=== PATIENT | male | born 1965 | race Caucasian/White ===

== ENCOUNTER 2018-10-07 11:13 | Outpatient (CLI) | payer BC, SELFPAY ==
--- NOTE | 2018-10-07 11:15 | DI.RAD_ITS ---
SYMPTOMS/DIAGNOSIS: KNEE PAIN, M25.569 LEFT KNEE: Three views were obtained. No significant bony or soft tissue abnormality seen.
== END 2018-10-07 11:33 ==
PROVIDERS: PCP Family Medicine
DX: M25.562 Pain in left knee (principal)
CPT/HCPCS: 73562

== ENCOUNTER 2020-01-03 20:10 | Inpatient (IN) | payer BC, SELFPAY ==
[2020-01-03 20:25] VITALS: BP 151/96; PULSE 68; RESP 19; TEMP 36.4; O2SAT 98
--- NOTE | 2020-01-03 20:30 | DI.CT_ITS ---
EXAM: CT ABDOMEN PELVIS W CLINICAL HISTORY: Lower abdominal pain TECHNIQUE: Imaging Protocol: Axial computed tomography images with coronal and sagittal reformatted images were created and reviewed CONTRAST MATERIAL: Intravenous: Omnipaque 350 Contrast volume:100 mL Oral: Yes COMPARISON: CT RENAL COLIC WO CONTRAST from 03/20/2010 CT ABD PELVIS WITH CONTRAST from 08/27/2014 FINDINGS: ABDOMEN: Lung Bases: Normal where visualized. Liver: Normal density. No measurable mass. Portal, Superior Mesenteric, and Splenic Veins: Unremarkable. Gallbladder and Biliary Tract: No radiodense calculus or dilation. Pancreas: Normal density, no abnormal calcifications or inflammatory process. Spleen: Normal. Adrenals: No masses seen. Kidneys: Normal size, contour and axis. No radiodense stones or obstructive uropathy. No masses seen. Abdominal Aorta: Abdominal portion non-dilated. Mild atherosclerosis. Bowel: Mild thickening of the wall of loops of small bowel in the central abdomen. Mild dilatation o f the bowel proximally with normal caliber distally. There is a moderate amount of retained stool in the colon. Appendix is unremarkable. Peritoneal Cavity: No ascites, collection or mesenteric inflammatory response. Lymph Nodes: Within normal limits. Bones: Degenerative changes. Soft Tissues: Unremarkable. PELVIS: Bladder: Symmetric distention, no gross wall thickening. Reproductive Organs: Mildly enlarged prostate gland. Lymph Nodes: Within normal limits. Bones: Degenerative changes. IMPRESSION: Small-bowel enteritis with associated ileus or possible developing obstruction. RADIATION DOSE DELIVERED: 815.24mGy.cm Total DLP DATA REPOSITORY: All CT scans at this facility are submitted to the National Radiology Data Registry (NRDR) Dose Index Registry (DIR) with the [employer] (ACR). RADIATION OPTIMIZATION: All CT scans at this facility use at least one of these dose optimization te chniques: automated exposure control; mA and/or kV adjustment per patient size (includes targeted exa ms where dose is matched to clinical indication); or iterative reconstruction.
--- NOTE | 2020-01-03 20:39 | ED.GENADUL_ITS ---
Discharge Plan Disposition Patient Disposition: [facility] INPATIENT Condition: Stable Discharge Details Chief Complaint: Abd Prob Clinical Impression: Ileus, Abdominal pain Admit Date/Time: 01/03/20 23:02 Admit Provider: Angelica Corcoran Attending Provider: Angelica Corcoran Primary Care Provider: Judit Corey ED Provider: [facility] Course Hospital Course: Patient was admitted with abdominal pain and nausea vomiting. In the CAT scan it appears that he has some small bowel adhered up to his previous mesh repair at the umbilical hernia site. With pain meds and hydration/fluids, this has resolved. The patient has no pain today, he is passing gas, he is tolerating clear liquids. He will be discharged home. He will follow-up my is on Sunday we will obtain an MRI enterography to further evaluate this area. This has been happening off and on for several months. It is becoming more severe and painful. He is going to need surgery to correct this. Discharge Instructions Additional Instructions: -No lifting over 20 pounds x 24 hours -No driving x24 hours -Full liquid diet x24 hours. Then can advance to a soft diet. No beef, pork, bread, crackers or chips. No raw vegetables. Continue this diet until seen in clinic on Sunday with Dr. Corcoran. -[facility] in clinic on Sunday. You will need to call on Sunday to make an appointment with Dr. Corcoran. This number is [phone]. Forms: Nursing Discharge Form Referrals: Angelica Corcoran, [OSTEOPATHIC DOCTOR] - (Calll the office on Sunday morning to schedule an appointment to be seen on Sunday) Discharge Data Discharge Date/Time-TO BE ENTERED AT DEPARTURE: 01/04/20 00:09 Medical Decision Making 54-year-old male presents to the ER with chief complaint of lower abdominal pain. Began at approximately 1700 after dinner. He reports eating at home, chicken and small candies also taking 2 peppermint tablets with some chips. He denies any nausea vomiting diarrhea. Last bowel movement was this morning and was normal. Denies any hematochezia or hematemesis. Only past abdominal surgical history is a umbilical hernia repair with mesh. He reports pain that is stabbing which is intermittent comes and goes no radiation to the back. He reported to the nurse some strong smelling urine. Denies any dysuria or pr oblems urinating to me. CT result shows possible ileus versus early obstruction. Discussed results with patient who also verbalized understanding. Discussed this with Dr. Corcoran with general surgery for admission and observation. She agrees to admit patient. Patient states that abdominal pain is decreased and is achy and tender. He has declined the Zofran and morphine at this time. He did receive Pepcid and 1 L normal saline here in department. Patient was hemodynamically stable throughout stay and at the time of this dictation. This text was generated using [employer] dictation system, please disregard any oddities of phrase or misspellings. HPI General Mode of arrival: ambulatory . Date/Time Provider Initiated Documentation: 01/03/20 20:30 . Limitations to Documentation: no limitations . Information obtained by: patient . HPI Narrative: 54-year-old male presents to the ER with chief complaint of lower abdominal pain. Began at approximately 1700 after dinner. He reports eating at home, chicken and small candies also taking 2 peppermint tablets with some chips. He denies any nausea vomiting diarrhea. Last bowel movement was this morning and was normal. Denies any hematochezia or hematemesis. Only past abdominal surgical history is a umbilical hernia repair with mesh. He reports pain that is stabbing which is intermittent comes and goes no radiation to the back. He reported to the nurse some strong smelling urine. Denies any dysuria or problems urinating to me. Related Data Home Medications Medication Instructions Recorded Confirmed acetaminophen [Acetaminophen Extra 1,000 mg PO PRN tab-cap 07/03/14 09/04/19 Strength] ibuprofen 600 mg tablet 600 mg PO TID tab 11/26/18 09/04/19 Allergies Allergy/AdvReac Type Severity Reaction Status Date / Time No Known Allergies Allergy Verified 09/04/19 10:32 General Stated Complaint: Abd Prob MELISSA: 3 Review of Systems Narrative: Constitutional: Negative for weight loss, alert and oriented, well groomed, normal body habitus, appears comfortable. HEENT: Denies trauma, headaches, blurry vision, nasal discharge, sore throat, tr ouble swallowing. Chest: Denies chest pain, palpitations, irregular rhythm, hypertension. Respiratory: Denies Shortness of breath, cough, hemoptysis. GI: Positive lower bilateral abdominal pain which began suddenly at 5 PM after eating. Denies nausea vomiting diarrhea. : Denies dysuria, hematuria, flank pain, rectal bleeding. Neuro: Denies dizziness, blurry vision, weakness, syncope, headache or facial numbness. Hematologic: Denies easy bruising, intolerance to heat or cold, hair loss. [facility] Medical History (Updated 01/04/20 @ 13:03 by Angelica Corcoran DO) Left knee pain (Acute) ? mensical degenerative tear Partial small bowel obstruction (Acute) Surgical History (Updated 01/04/20 @ 13:03 by Angelica Corcoran DO) History of umbilical hernia repair (Acute) Done laparoscopically with [place] [address] Roy Family History Mother , 63 Depression Lung cancer Father , 69 Essential hypertension Cerebral ischemia Neoplasm ? PANCREATIC Pancreatic cancer ??? Sister No problems noted. Maternal Grandmother , 101 No problems noted. Son No problems noted. Daughter No problems noted. Paternal Family history Heart disease Myocardial infarction Maternal Grandfather No problems noted. Maternal Grandfather No problems noted. Paternal Grandmother No problems noted. Social History Smoking/Tobacco Use Status: Current every day Tobacco Type: smokeless tobacco Smokeless tobacco user: chewing tobacco Quit status: has quit before Second Hand Exposure: Yes Alcohol Intake: current Alcohol Intake frequency: holidays/special occasions only Alcohol type: hard liquor Drug use: Never Substance use type: does not use Household members: spouse and children Housing: house Do you need help understanding health information?: Never Pets and animals: Yes Pets and animals: cat(s) and dog(s) Sexually active: Yes Do you think of yourself as: straight/heterosexual Current gender identity: male What is your relationship status?: How often do you talk on the phone with friends or family?: three or more times per week How often do you get together with friends or relatives?: once per week How often do you attend mu-ism or cheondoism services?: decline to answer Do you belong to any clubs or organized social groups?: no Panel score (0-1 are the most socially isolated patients): 2 What type of physical activity do you participate in: decline to answer Duration: decline to answer Frequency: decline to answer Elisa/Pentecostal: No preference Special elisa needs: No Seatbelt use: always Helmet use: Yes Helmet use: always Drive intox or ride w/intox diesel truck driver: No Do you feel safe at home: Yes Do you feel safe in your relationship?: Yes Exam Narrative Exam Narrative: Constitutional: Alert and oriented x3. Appears stated age. Normal body habitus. Head: Normocephalic, no trauma. Eyes: Pupils PERRLA, Red reflex noted, EOM's intact. Eyelids symmetrical without lesions, discharge, or swelling. ENT: Bilateral TM's WNL, External ear normal to inspection, no mastoid TTP, swelling, or erythema, Nasal turbinates WNL, no nasal discharge. Normal dentition, Posterior pharynx WNL, no exudate. Chest: RRR, Normal S1, S2, distal pulses intact. Resp: Lungs clear to auscultation bilaterally, no wheezes, rales, or rhonchi Abdomen: Soft nondistended normoactive bowel sounds all 4 quadrants, tender to palpation right lower quadrant and left lower quadrant and periumbilical. No palpable mass. Musculoskeletal: Normal gait, 5/5 strength to all four extremities. Skin: No suspicious rashes or lesions. Capillary refill less than 2 sec. Neurologic: Cranial nerves II-XII intact. Alert and oriented x 3. DTR's intact. Hematologic/Lymphatic: No ecchymosis, no lymphadenopathy. Course Vital Signs Vital signs: Vital Signs Temperature 36.4 C L 01/03/20 20:25 Pulse 68 01/03/20 20:25 Respiratory Rate 19 01/03/20 20:25 Blood Pressure 151/96 H 01/03/20 20:25 Pulse Oximetry 98 01/03/20 20:25 Temperature 36.4 C L 01/03/20 20:25 Temperature Source Temporal Artery Scan 01/03/20 20:25 Pulse 68 01/03/20 20:25 Respiratory Rate 19 01/03/20 20:25 Respiratory Effort Non-Labored 01/03/20 20:28 Blood Pressure 151/96 H 01/03/20 20:25 Blood Pressure Position Sitting 01/03/20 20:25 Pulse Oximetry 98 01/03/20 20:25 Oxygen Delivery Method Room Air 01/03/20 20:25 Oxygen Flow Rate 0 01/03/20 20:25 Pain Level 2 01/03/20 20:28
[2020-01-03] MEDS: Omnipaque 350 MG/ML 50 ML BTL PO (20:45)
[2020-01-03] MEDS: Breeza Beverage 473 ML BTL PO ×2 (20:45→20:46)
[2020-01-03 21:01] LABS: Abs Immature Grans 0.06 10^3/uL (0.0-0.06); Absolute Basophil Count 0.06 10^3/uL (0.0-0.2); Absolute Lymphocyte Count 2.21 10^3/uL (1.2-3.4); Absolute Monocyte Count 0.51 10^3/uL (0.1-0.8); Absolute Neutrophil Count 7.17 10^3/uL (1.2-6.7); Basophils % 0.6; Eosinophils % 2.9; HCT 49.9 % (40.0-50.0); HGB 16.5 g/dL (13.5-17.5); Immature Grans % 0.6; Lymphocytes % 21.4; MCH 29.4 pg (27.0-33.0); MCHC 33.1 % (32.0-36.0); MCV 88.9 fL (80-95); MPV 10.9 fL (8.0-11.0); Monocytes % 4.9; Neutrophils % 69.6; Nucleated RBC 0 %; Platelet Count 184 10^3/uL (130-400); RBC 5.61 10^6/uL (4.36-5.78); RDW 12.1 % (11.8-14.1); RDW-SD 39.6 fL; WBC 10.31 10^3/uL (4.4-10.8)
[2020-01-03 21:23] LABS: ALT 27 U/L (16-63); AST 15 U/L (15-37); Albumin 4.1 g/dL (3.4-5.0); Alkaline Phosphatase 63 U/L (46-116); Anion Gap 10.9 mmol/L (3-11); BUN 14 mg/dL (7-18); Bilirubin, Total 0.5 mg/dL (0.2-1.0); CO2 27.1 mmol/L (21.0-32.0); CREATININE 1.67 mg/dL (0.70-1.30); Calcium 8.9 mg/dL (8.5-10.1); Chloride 105 mmol/L (98-107); Estimated GFR 43.25 (mL/min/1.73m2); Glucose 109 mg/dL (74-106); Lipase 137 U/L (73-393); Potassium 3.7 mmol/L (3.5-5.1); Sodium 143 mmol/L (136-145); Total Protein 6.9 g/dL (6.4-8.2)
[2020-01-03] MEDS: Omnipaque 350 MG/ML 100 ML BTL IJ (21:25)
[2020-01-03] MEDS: Normal Saline Flush 10 ML SYR IVP (21:26)
[2020-01-03] MEDS: Normal Saline - Diluent 50 ML VIAL IV (21:26)
[2020-01-03] MEDS: FAMOTIDINE 20 MG/50 ML BAG 100 MG IVPB (21:29)
[2020-01-03] MEDS: Normal Saline 1,000 ML 1000 ML IV (21:29)
--- NOTE | 2020-01-03 21:40 | DI.VRAD_ITS ---
PROCEDURE INFORMATION: Exam: CT Abdomen And Pelvis With Contrast Exam date and time: 01/03/2020 20:40 Age: 54 years old Clinical indication: Other: Lower abdominal pain; Prior surgery; Surgery date: 6+ months; Surgery type: Hernia mesh TECHNIQUE: Imaging protocol: Computed tomography of the abdomen and pelvis with intravenous contrast. Contrast material: OMNIPAQUE 350; Contrast volume: 100 ml; Contrast route: INTRAVENOUS (IV); COMPARISON: CT ABD PELVIS WITH CONTRAST 08/27/2014 09:08 FINDINGS: Liver: Fatty liver with no mass lesions. Gallbladder and bile ducts: No calcified stones. No ductal dilation. Pancreas: No ductal dilation. No masses. Spleen: No splenomegaly or focal lesions. Adrenals: No mass. Kidneys and ureters: No hydronephrosis. No renal masses. Stomach and bowel: Minor distal colonic diverticula. No diverticulitis. Submucosal fat deposition in the colon, likely habitus related. Focal wall thickening in mid abdominal small bowel, moderate in severity up to 12 mm along a short length segment of probably distal jejunum or proximal ileum. Enteric contrast reaches this level. A very small amount of enteric contrast progresses distally where the small bowel demonstrates mild wall thickening. The distal most small bowel contains fluid and is not pathologically dilated. No ischemia or pneumatosis. Appendix: No evidence of appendicitis. Intraperitoneal space: No free air. No significant fluid collection. Vasculature: No abdominal aortic aneurysm. Lymph nodes: No significantly enlarged lymph nodes. Bladder: Unremarkable as visualized. Reproductive: Moderate enlargement of the prostate gland and of the seminal vesicles. Bones/joints: Degenerative changes in the spine. No acute fracture or subluxation. Soft tissues: Ventral abdominal hernia mesh appears satisfactory. IMPRESSION: 1. Focal mid small bowel enteritis with associated focal ileus and or developing obstruction. 2. Additional findings as described. Dictated and Authenticated by: Zelda Betancourt MD. Ordering:DENISE Paredes MD
[2020-01-03 22:01] LABS: Bilirubin Negative (Negative); Blood Negative (Negative); Glucose Negative (Negative); Ketones Negative (Negative); Leukocyte Esterase Trace (Negative); Nitrite Negative (Negative); Urobilinogen 0.2 EU/dL (Up TO 0.2); pH 6.5 (5-8)
[2020-01-03 22:07] LABS: Clarity Clear (Clear)
[2020-01-03 22:15] LABS: Bacteria Negative HPF (Negative); C & S Indicated? Yes; Casts Negative LPF (Negative); Crystals Few Calcium Oxalate HPF (Negative); Epithelial Cells Negative HPF (Negative); Mucus Negative (Negative); Other Cells Negative (Negative); RBC Negative HPF (0-2); WBC 0-2 HPF (0-5)
--- NOTE | 2020-01-03 23:45 | HPE_ITS ---
Date of service: 01/03/20 Time of Service: 23:45 Assessment and Plan Assessment and plan (1) Abdominal pain: Status: Acute Assessment and plan: I did review his CT today. The oral contrast did not go all the way through the intestine. And it almost looks like she has an intestine adhesed up to his previous mesh repair and he is getting intermittent small bowel obstructions. This is been happening off and on for some time. And again today he has no pain and he is tolerating clear liquids and passing gas. Does not think this is any viral or inflammatory/autoimmune process. I think it would be worthwhile to get an MRI of this. On his flat plate today there is no signs of any small bowel obstructions. He is passing gas he has tolerated glass of juice and he wants to go home. I think this is reasonable and we will keep him on a liquid/soft diet I will see him in clinic on Sunday and we will get an MRI enterography arranged. He has severe anxiety and has to have an open MRI. (2) Ileus: Status: Acute History of Present Illness Consults Consult date: 01/03/20 Narrative: Patient came into the ER last night with crampy abdominal pain. He says it was generalized is not localized. The patient says today that he had no nausea vomiting. He gets this often. It comes about once a month. He is thinks it is related to drinking soda. He says he was having no nausea and vomiting. He says it feels like he just cannot pass gas. He has had no preceding or proceeding diarrhea. He has had no fever or chills. He has had no rectal bleeding. He has no rashes. He has not been in contact with anyone who is ill. He does not think he is food poisoning. It started about 3 to 4 hours after he had a carbonated beverage. And he is planning to get on that. Today he feels good he is hungry and wants to eat. He is passing gas. He has no pain. His only surgery is an umbilical hernia repair he had in in 2012 as a laparoscopic umbilical hernia repair. He had no problems with anesthesia. Again he has no pain today. And he is passing gas. He has not had a bowel movement yet today. CT ABD PELVIS WITH CONTRAST 08/27/2014 09:08 FINDINGS: Liver: Fatty liver with no mass lesions. Gallbladder and bile ducts: No calcified stones. No ductal dilation. Pancreas: No ductal dilation. No masses. Spleen: No splenomegaly or focal lesions. Adrenals: No mass. Kidneys and ureters: No hydronephrosis. No renal masses. Stomach and bowel: Minor distal colonic diverticula. No diverticulitis. Submucosal fat deposition in the colon, likely habitus related. Focal wall thickening in mid abdominal small bowel, moderate in severity up to 12 mm along a short length segment of probably distal jejunum or proximal ileum. Enteric contrast reaches this level. A very small amount of enteric contrast progresses distally where the small bowel demonstrates mild wall thickening. The distal most small bowel contains fluid and is not pathologically dilated. No ischemia or pneumatosis. Appendix: No evidence of appendicitis. Intraperitoneal space: No free air. No significant fluid collection. Vasculature: No abdominal aortic aneurysm. Lymph nodes: No significantly enlarged lymph nodes. Bladder: Unremarkable as visualized. Reproductive: Moderate enlargement of the prostate gland and of the seminal vesicles. Bones/joints: Degenerative changes in the spine. No acute fracture or subluxation. Soft tissues: Ventral abdominal hernia mesh appears satisfactory. Review of Systems All systems reviewed & are unremarkable except as noted in HPI and below [facility] Medical History (Updated 01/09/20 @ 13:36 by Angelica Corcoran DO) Intra-abdominal adhesions (Acute) Left knee pain (Acute) ? mensical degenerative tear Partial small bowel obstruction (Acute) Surgical History (Updated 01/04/20 @ 13:03 by Angelica Corcoran DO) History of umbilical hernia repair (Acute) Done laparoscopically with mesh [place] [address] Roy Family History Mother , 63 Depression Lung cancer Father , 69 Essential hypertension Cerebral ischemia Neoplasm ? PANCREATIC Pancreatic cancer ??? Sister No problems noted. Maternal Grandmother , 101 No problems noted. Son No problems noted. Daughter No problems noted. Paternal Family history Heart disease Myocardial infarction Maternal Grandfather No problems noted. Maternal Grandfather No problems noted. Paternal Grandmother No problems noted. Social History Smoking/Tobacco Use Status: Current every day Tobacco Type: smokeless tobacco Smokeless tobacco user: chewing tobacco Quit status: has quit before Second Hand Exposure: Yes Alcohol Intake: current Alcohol Intake frequency: holidays/special occasions only Alcohol type: hard liquor Drug use: Never Substance use type: does not use Household members: spouse and children Housing: house Do you need help understanding health information?: Never Pets and animals: Yes Pets and animals: cat(s) and dog(s) Sexually active: Yes Do you think of yourself as: straight/heterosexual Current gender identity: male What is your relationship status?: How often do you talk on the phone with friends or family?: three or more times per week How often do you get together with friends or relatives?: once per week How often do you attend mormon or restorationist services?: decline to answer Do you belong to any clubs or organized social groups?: no Panel score (0-1 are the most socially isolated patients): 2 What type of physical activity do you participate in: decline to answer Duration: decline to answer Frequency: decline to answer Elisa/Taoist: No preference Special elisa needs: No Seatbelt use: always Helmet use: Yes Helmet use: always Drive intox or ride w/intox armor reconnaissance vehicle driver: No Do you feel safe at home: Yes Do you feel safe in your relationship?: Yes Meds Home Medications and Allergies Home Medications Medication Instructions Recorded Confirmed Type acetaminophen [Acetaminophen Extra 1,000 mg PO PRN tab-cap 07/03/14 01/07/20 History Strength] ibuprofen 600 mg tablet 600 mg PO TID tab 11/26/18 01/07/20 History bisacodyl 5 mg tablet,delayed 5 mg PO ONCE #4 tab 01/09/20 01/09/20 Rx release polyethylene glycol 3350 17 238 g PO ONCE #238 gm 01/09/20 01/09/20 Rx gram/dose oral powder Allergies Allergy/AdvReac Type Severity Reaction Status Date / Time No Known Allergies Allergy Verified 01/07/20 09:34 Exam Const General: cooperative, healthy appearing, comfortable, no acute distress, well developed and well groomed Nutritional Appearance: average body habitus and well nourished Orientation: alert, awake and oriented x3 HENMT Head: normal to inspection, normocephalic and atraumatic Ears: hearing grossly normal bilaterally and external ears normal General nose exam: external nose normal Face and sinus: normal facial exam and sinuses nontender Mouth: oral mucosae normal, lip normal, tongue normal and moist mucous membranes Teeth and gingiva: dentition normal Eyes General: appearance normal, both eyes and all related structures Conjunctivae: conjunctivae normal Sclera: sclerae normal Pupils: PERRL Neck Neck: normal visual inspection and full ROM Chest Chest: normal inspection of the chest Resp Effort & Inspection: normal respiratory effort, able to speak in complete sentences, no cough, no nasal flaring, not tachypneic and no use of accessory muscles Auscultation: clear to auscultation bilaterally, no rales, no rhonchi and no wheezes Cardio Jugular venous pressure: no JVD Rate: regular rate Rhythm: regular rhythm GI Inspection: normal to inspection, no edema, non-distended and incision Palpation: soft, no masses, nontender and No ascites Auscultation: normal bowel sounds Other: Postsurgical changes noted. When he was having pain it was in the area of the previous hernia repair. There is no distention today. He has minimal tenderness today. He has good bowel sounds today. Skin General skin exam: no rashes or lesions noted Trauma: no lacerations or abrasions Neuro General: patient alert, patient oriented x3, oriented, gait normal, moves all extremities, no focal motor deficits and CN's II-XI intact bilaterally Cognition: normal cognition Speech: speech normal Gait: normal gait Motor: muscle tone normal throughout Extrem General: normal to inspection, full ROM and no clubbing, cyanosis or edema Psych Appearance: grossly normal and well kempt Mental Status: mental status grossly normal Speech and Movement: speech and movement normal Affect: normal affect Results Labs Result diagrams: 01/03/20 20:42 01/04/20 07:15 Labs: Laboratory Results - last 24 hr 01/03/20 01/03/20 01/03/20 20:42 20:42 21:37 WBC 10.31 RBC 5.61 Hgb 16.5 Hct 49.9 MCV 88.9 MCH 29.4 MCHC 33.1 RDW 12.1 Plt Count 184 MPV 10.9 Immature Gran % 0.6 Neutrophils % 69.6 Lymphocytes % 21.4 Monocytes % 4.9 Eosinophils % 2.9 Basophils % 0.6 Nucleated RBC % 0 Absolute Neutrophils 7.17 H Absolute Lymphocytes 2.21 Absolute Monocytes 0.51 Absolute Eosinophils 0.30 Absolute Basophils 0.06 Sodium 143 Potassium 3.7 Chloride 105 Carbon Dioxide 27.1 Anion Gap 10.9 BUN 14 Creatinine 1.67 H Estimated GFR/1.73 m2 43.25 Glucose 109 H Calcium 8.9 Total Bilirubin 0.5 AST 15 ALT 27 Alkaline Phosphatase 63 Total Protein 6.9 Albumin 4.1 Lipase 137 Urine Color Yellow Urine Clarity Clear Urine pH 6.5 Ur Specific Kosse 1.010 Urine Protein Negative Urine Ketones Negative Urine Blood Negative Urine Nitrite Negative Urine Bilirubin Negative Urine Urobilinogen 0.2 Ur Leukocyte Esterase Trace H Urine RBC Negative Urine WBC 0-2 Ur Epithelial Cells Negative Urine Crystals Few calcium oxalate Urine Bacteria Negative Urine Casts Negative Urine Mucus Negative Urine Other Negative Ur Culture Indicated? Yes Urine Glucose Negative Last Vital Signs Temp 36.4 C L 01/03/20 20:25 Pulse 68 01/03/20 20:25 Resp 19 01/03/20 20:25 BP 151/96 H 01/03/20 20:25 Pulse Ox 98 01/03/20 20:25 COVID-19 Screening Have you,or household,traveled outside [place] in last 14 days?: No Had IN PERSON contact w/suspected or confirmed C-19 person: No
[2020-01-04 00:28] VITALS: BP 141/92; PULSE 58; RESP 16; TEMP 35.8; O2SAT 99
[2020-01-04] MEDS: Normal Saline 1,000 ML 125 ML IV (00:50)
[2020-01-04 01:31] LABS: C-Reactive Protein 0.16 mg/dL (0.0-0.3)
[2020-01-04 07:40] VITALS: BP 124/89; PULSE 53; RESP 18; TEMP 37.3; O2SAT 98
[2020-01-04 08:19] LABS: Anion Gap 6.8 mmol/L (3-11); BUN 10 mg/dL (7-18); C-Reactive Protein 0.14 mg/dL (0.0-0.3); CO2 28.2 mmol/L (21.0-32.0); Calcium 8.7 mg/dL (8.5-10.1); Chloride 108 mmol/L (98-107); Estimated GFR 48.95 (mL/min/1.73m2); Glucose 93 mg/dL (74-106); Potassium 4.7 mmol/L (3.5-5.1); Sodium 143 mmol/L (136-145)
--- NOTE | 2020-01-04 08:45 | PDOC.CMIN ---
- If Service Date Differs Date of service: 01/04/20 Time of Service: 08:45 Care Management Initial Assess REASON FOR HOSPITALIZATION:: Ileus, abdominal pain. PAST MEDICAL HISTORY/PAST SURGICAL HISTORY:: Medical/Surgical History: Left knee pain - ? mensical degenerative tear and. Repair of inguinal hernia with mesh implant. PREVIOUS FUNCTIONAL STATUS/SOCIAL/FAMILY SUPPORTS:: Aung lives in [place] with his Yaritza and 2 children. He works full-time in maintenance at [employer] and spends his free time golfing, chopping wood, and doing yardwork. Aung names his , in-laws and several friends as supports, though admits he is very independent and rarely turns to others for help. Aung drives and is independent at baseline. CURRENT FUNCTIONAL STATUS:: Aung is lying in bed watching television when CM comes to meet with him. He is pleasant but appropriately expresses frustration with not having seen a doctor yet today. He states he is feeling better, is hungry and has not had anything to eat since yesterday. CM explains to him that Dr. Corcoran has several patients to see today and that she will be by to see him as soon as she is available. Dr. Corcoran is contacted by nursing staff and she stops by Aung's room to answer his questions. CM will continue to follow. ADVANCE DIRECTIVES:: None on file. Has patient been provided with info about the portal/API?: Yes Did the patient sign up for the portal?: No (Not interested.) CODE STATUS:: Full Code INSURANCE COVERAGE / FINANCIAL ISSUES:: BS CURRENT HOME/COMMUNITY SERVICES/EQUIPMENT:: Denies home/community services or equipment. PRIMARY CARE PHYSICIAN:: Judit Corey NP POTENTIAL DISCHARGE NEEDS:: Follow up appointments with PCP and surgeon. PATIENT/FAMILY EDUCATION NEEDS:: Discharge instructions, limitations and follow up plan of care, including Ask Me Three and self management. ANTICIPATED BARRIERS TO DISCHARGE:: None. TRANSPORTATION:: Via private vehicle with family. PLAN:: Aung will be discharged home when medically cleared by provider. His will drive him home via private vehicle when ready. He will follow up with his PCP and discharge plan of care as directed. CM will continue to follow.
--- NOTE | 2020-01-04 08:47 | DI.RAD_ITS ---
EXAM: 2D digital imaging was performed. CLINICAL HISTORY: Possible SBO. COMPARISON: No exams were available for comparison TECHNIQUE: Supine and upright abdomen and PA chest views were performed. FINDINGS: BOWEL GAS PATTERN: Nondistended. The oral contrast is seen throughout the colon. No evidence of obs truction. No free air. CALCIFICATIONS: No radiopaque calcifications. OSSEOUS STRUCTURES: Normal for age. OTHER FINDINGS: Residual IV contrast is seen in the urinary bladder. LUNGS Clear. No pleural abnormality seen. HEART: Normal. MEDIASTINUM: Normal. OTHER FINDINGS: None. IMPRESSION: 1. Nonobstructive bowel gas pattern. 2. No acute pulmonary process. 3. No free air. DATA REPOSITORY: RADIATION DOSE DELIVERED:
--- NOTE | 2020-01-04 08:56 | DI.VRAD_ITS ---
PROCEDURE INFORMATION: Exam: XR Complete Acute Abdomen Series Exam date and time: 01/04/2020 8:47 AM Age: 54 years old Clinical indication: Other: [place] sbo TECHNIQUE: Imaging protocol: XR complete acute abdomen series, including 2 or more views of the abdomen and a single view chest. COMPARISON: CT ABDOMEN PELVIS W 01/03/2020 9:18 PM FINDINGS: Lungs: Hyperinflation, without acute airspace disease. Pleural space: No pleural effusion. Heart/Mediastinum: Normal configuration of the heart. Gastrointestinal tract: Enteric contrast throughout the length of the colon. Scattered air-fluid levels. Organs: Contrast in the bladder. Vasculature: Vascular calcifications. Bones/joints: Scoliosis and degenerative change. IMPRESSION: 1. Hyperinflation, without acute airspace or pleural disease. 2. Enteric contrast throughout the length of the colon. Dictated and Authenticated by: Abel Smith MD. Ordering:HEATHER Dominguez MD
[2020-01-04] MEDS: Famotidine 20 MG TAB PO (11:14)
--- NOTE | 2020-01-04 13:01 | DSE_ITS ---
Date of service: 01/04/20 Time of Service: 13:01 DS: Diagnosis Discharge Diagnosis (1) Abdominal pain: Status: Acute (2) Ileus: Status: Acute (3) Partial small bowel obstruction: Status: Acute (4) History of umbilical hernia repair: Status: Acute Discharge Plan Disposition Patient Disposition: HOME Condition: Stable Discharge Details Chief Complaint: Abd Prob Clinical Impression: Ileus, Abdominal pain Reason For Visit: Partial small bowel obstruction secondary to adhes Admit Date/Time: 01/03/20 23:02 Admit Provider: Angelica Corcoran Attending Provider: Angelica Corcoran Primary Care Provider: Judit Corey ED Provider: [facility] Course Hospital Course: Patient was admitted with abdominal pain and nausea vomiting. In the CAT scan it appears that he has some small bowel adhered up to his previous mesh repair at the umbilical hernia site. With pain meds and hydration/fluids, this has resolved. The patient has no pain today, he is passing gas, he is tolerating clear liquids. He will be discharged home. He will follow-up my is on Sunday we will obtain an MRI enterography to further evaluate this area. This has been happening off and on for several months. It is becoming more severe and painful. He is going to need surgery to correct this. Home Meds and New Rx's Prescriptions: No Action ibuprofen 600 mg tablet 600 mg PO TID RF: 0 acetaminophen [Acetaminophen Extra Strength] 500 MG tablet 1,000 mg PO PRN RF: 0 Discharge Instructions Additional Instructions: -No lifting over 20 pounds x 24 hours -No driving x24 hours -Full liquid diet x24 hours. Then can advance to a soft diet. No beef, pork, bread, crackers or chips. No raw vegetables. Continue this diet until seen in clinic on Sunday with Dr. Corcoran. -[facility] in clinic on Sunday. You will need to call on Sunday to make an appointment with Dr. Corcoran. This number is [phone]. Activity:: See above Equipment/Supplies:: No Equipment Needed Diet:: Full liquid Discharge Orders Discharge Orders: Discharge Order (Routine); Ordered 01/03/20 Ordered By: Angelica Corcoran DS: Summary Status at Discharge Functional status at discharge: independent ambulation Overall status at discharge: patient is back to baseline Mental Status: mental status grossly normal Speech and Movement: speech and movement normal Mood: congruent mood Affect: normal affect Exam Psych Mental Status: mental status grossly normal Speech and Movement: speech and movement normal Mood: congruent mood Affect: normal affect DS: Data Vitals/I&O Vitals and I&O: Vital Signs Temperature 37.3 C 01/04/20 07:40 Temperature Source Tympanic 01/04/20 07:40 Pulse 53 L 01/04/20 07:40 Pulse Rhythm Regular 01/04/20 07:50 Respiratory Rate 18 01/04/20 07:40 Respiratory Effort Non-Labored 01/04/20 07:50 Respiratory Depth Normal 01/04/20 07:50 Respiratory Pattern Normal 01/04/20 07:50 Blood Pressure 124/89 01/04/20 07:40 Blood Pressure Position Sitting 01/03/20 20:25 Pulse Oximetry 98 01/04/20 07:40 Oxygen Delivery Method Room Air 01/04/20 07:40 Oxygen Flow Rate 0 01/04/20 07:40 Pain Level 0 01/04/20 07:49 Intake & Output 01/03/20 01/04/20 01/04/20 23:59 11:59 23:59 Intake Total 1060 / 1060 650 / 650 Output Total 650 / 650 Balance 1060 / 1060 0 / 0 Weight 83.915 kg 86 kg Intake: IV 1060 / 1060 Oral 650 / 650 Output: Urine 650 / 650 Other: Urine Color Yellow Urine Appearance Clear Urine Odor Normal Voiding Methods Urinal Data Completed and Pending Labs on day of discharge: Labs from last 24 hours 01/04/20 01/04/20 01/04/20 07:15 02:38 00:06 WBC RBC Hgb Hct MCV MCH MCHC RDW Plt Count MPV Immature Gran % Neutrophils % Lymphocytes % Monocytes % Eosinophils % Basophils % Nucleated RBC % Absolute Neutrophils Absolute Lymphocytes Absolute Monocytes Absolute Eosinophils Absolute Basophils Sodium 143 Potassium 4.7 D Chloride 108 H Carbon Dioxide 28.2 Anion Gap 6.8 BUN 10 Creatinine 1.50 H Estimated GFR/1.73 m2 48.95 Glucose 93 Calcium 8.7 Total Bilirubin AST ALT Alkaline Phosphatase C-Reactive Protein 0.14 Total Protein Albumin Lipase Urine Color Cancelled Urine Clarity Cancelled Urine pH Cancelled Ur Specific Bells Cancelled Urine Protein Cancelled Urine Ketones Cancelled Urine Blood Cancelled Urine Nitrite Cancelled Urine Bilirubin Cancelled Urine Urobilinogen Cancelled Ur Leukocyte Esterase Cancelled Urine RBC Urine WBC Ur Epithelial Cells Urine Crystals Urine Bacteria Urine Casts Urine Mucus Urine Other Ur Culture Indicated? Urine Glucose Cancelled COVID-19 PCR Pending Nasopharyn COVID-19 PCR Pending Ref Test Perform Site Pending 01/03/20 01/03/20 01/03/20 21:37 20:42 20:42 WBC 10.31 RBC 5.61 Hgb 16.5 Hct 49.9 MCV 88.9 MCH 29.4 MCHC 33.1 RDW 12.1 Plt Count 184 MPV 10.9 Immature Gran % 0.6 Neutrophils % 69.6 Lymphocytes % 21.4 Monocytes % 4.9 Eosinophils % 2.9 Basophils % 0.6 Nucleated RBC % 0 Absolute Neutrophils 7.17 H Absolute Lymphocytes 2.21 Absolute Monocytes 0.51 Absolute Eosinophils 0.30 Absolute Basophils 0.06 Sodium Potassium Chloride Carbon Dioxide Anion Gap BUN Creatinine Estimated GFR/1.73 m2 Glucose Calcium Total Bilirubin AST ALT Alkaline Phosphatase C-Reactive Protein 0.16 Total Protein Albumin Lipase Urine Color Yellow Urine Clarity Clear Urine pH 6.5 Ur Specific Bells 1.010 Urine Protein Negative Urine Ketones Negative Urine Blood Negative Urine Nitrite Negative Urine Bilirubin Negative Urine Urobilinogen 0.2 Ur Leukocyte Esterase Trace H Urine RBC Negative Urine WBC 0-2 Ur Epithelial Cells Negative Urine Crystals Few calcium oxalate Urine Bacteria Negative Urine Casts Negative Urine Mucus Negative Urine Other Negative Ur Culture Indicated? Yes Urine Glucose Negative COVID-19 PCR Nasopharyn COVID-19 PCR Ref Test Perform Site 01/03/20 20:42 WBC RBC Hgb Hct MCV MCH MCHC RDW Plt Count MPV Immature Gran % Neutrophils % Lymphocytes % Monocytes % Eosinophils % Basophils % Nucleated RBC % Absolute Neutrophils Absolute Lymphocytes Absolute Monocytes Absolute Eosinophils Absolute Basophils Sodium 143 Potassium 3.7 Chloride 105 Carbon Dioxide 27.1 Anion Gap 10.9 BUN 14 Creatinine 1.67 H Estimated GFR/1.73 m2 43.25 Glucose 109 H Calcium 8.9 Total Bilirubin 0.5 AST 15 ALT 27 Alkaline Phosphatase 63 C-Reactive Protein Total Protein 6.9 Albumin 4.1 Lipase 137 Urine Color Urine Clarity Urine pH Ur Specific Bells Urine Protein Urine Ketones Urine Blood Urine Nitrite Urine Bilirubin Urine Urobilinogen Ur Leukocyte Esterase Urine RBC Urine WBC Ur Epithelial Cells Urine Crystals Urine Bacteria Urine Casts Urine Mucus Urine Other Ur Culture Indicated? Urine Glucose COVID-19 PCR Nasopharyn COVID-19 PCR Ref Test Perform Site 01/03/20 21:37 Urine - Reflex from Urine Culture - Pending Preliminary micro results at discharge 01/03/20 21:37 Urine Culture - Pending Urine - Reflex from [facility] Medical History Left knee pain (Acute) ? mensical degenerative tear Surgical History Repair of inguinal hernia with mesh implant Family History Mother , 63 Depression Lung cancer Father , 69 Essential hypertension Cerebral ischemia Neoplasm ? PANCREATIC Pancreatic cancer ??? Sister No problems noted. Maternal Grandmother , 101 No problems noted. Son No problems noted. Daughter No problems noted. Paternal Family history Heart disease Myocardial infarction Maternal Grandfather No problems noted. Maternal Grandfather No problems noted. Paternal Grandmother No problems noted. Social History Smoking/Tobacco Use Status: Current every day Tobacco Type: smokeless tobacco Smokeless tobacco user: chewing tobacco Quit status: has quit before Second Hand Exposure: Yes Alcohol Intake: current Alcohol Intake frequency: holidays/special occasions only Alcohol type: hard liquor Drug use: Never Substance use type: does not use Household members: spouse and children Housing: house Do you need help understanding health information?: Never Pets and animals: Yes Pets and animals: cat(s) and dog(s) Sexually active: Yes Do you think of yourself as: straight/heterosexual Current gender identity: male What is your relationship status?: How often do you talk on the phone with friends or family?: three or more times per week How often do you get together with friends or relatives?: once per week How often do you attend buddhist or yazdanism services?: decline to answer Do you belong to any clubs or organized social groups?: no Panel score (0-1 are the most socially isolated patients): 2 What type of physical activity do you participate in: decline to answer Duration: decline to answer Frequency: decline to answer Elisa/Taoism: No preference Special elisa needs: No Seatbelt use: always Helmet use: Yes Helmet use: always Drive intox or ride w/intox drivers' cash clerk: No Do you feel safe at home: Yes Do you feel safe in your relationship?: Yes
--- NOTE | 2020-01-04 13:50 | PDOC.CMDIS ---
- If Service Date Differs Date of service: 01/04/20 Time of Service: 13:50 LACE Index Scoring Tool - Questions: Length of Stay (in days): 1 Acuity (Admit via E.D.?): Yes E.D. Visits: 1 - Answers: Total Score: 5 Risk of Readmission: Low Risk Care Management Discharge Reason for Hospitalization: Ileus, abdominal pain. Discharge Plan: Aung is being discharged home. His , Yaritza, is driving him home via private vehicle. He will follow up with his PCP, Dr. Corcoran, and discharge plan of care as prescribed. Patient/Family Education Needs: Nursing staff will review discharge instructions and follow up plan of care, including activity level, medication, and self management.
[2020-01-05 08:27] LABS: COVID-19 RT-PCR UVMMC Result Negative
== END 2020-01-04 15:17 | disposition home or self-care (01) | DRG 390 ==
LOC: ER 23:10 → MS 01-04 00:10
PROVIDERS: Admitting Provider Surgery; Emergency Provider Registered Nurse Emergency; Visit Provider Surgery
DX: K56.51 Intestinal adhesions [bands], with partial obstruction (principal); Z72.0 Tobacco use
CPT/HCPCS: 36415; 80048; 80053; 83690; 96361; 96365; 99222; 99238; 99285; U0003; 74019; 74177; 81003; 81015; 85025; 86140; 87086; 99284; J2270; J3490; Q9967

== ENCOUNTER 2020-01-15 11:47 | Day surgery (SDC) | payer BC, SELFPAY ==
[2020-01-15 11:50] VITALS: BP 133/89; PULSE 70; RESP 18; TEMP 36.3; O2SAT 96
[2020-01-15] MEDS: Lactated Ringers 1,000 ML 100 ML IV (12:25)
--- NOTE | 2020-01-15 13:55 | W.COLOREPORT ---
Date of service: 01/15/20 Time of Service: 13:55 Colonoscopy Report Date of procedure: 01/15/20 Pre-op diagnosis general: CRC screen Post-op diagnosis procedure note: same Procedure: CE Surgeon: Angelica Corcoran Anesthesia proc note operative: MAC Estimated blood loss (mL): 0 Pathology: none sent Complications: None Disposition: same day Indications: Prep: Miralax/Dulcolax Retraction Time: 10 Procedure Description: After informed consent was obtained the patient was taken to the procedure room and placed in a left decubitous position. Monitors were applied and a time out was done. The patients name, date of , procedure, allergies to medications and metal in their body was reviewed. The patient was then sedated. Once sedated and comfortable a rectal exam was done. External exam: external hemorrds & tags . Internal exam revealed a normal sphincter tone and no palpable masses. The scope was then introduced and retrofelexed. NO internal hemorrhoids were identified- hypertrophied pillae noted. The scope was then advanced to the cecum w/out difficulty. The TI and appendiceal orifice were identified. The prep was good. The scope was then slowly retracted over 10 minutes back into the rectum. Polyps were removed: none. No AVMs amounts or diverticula noted. The mucosa is pink and healthy. Patient tolerated procedure well without complication the scope was removed and the patient was woken up and taken back to Same day surgery in stable condition. The patient tolerated the procedure well and there were no immediate complications. Follow up: The patient should follow up in 10 years unless they develop changes in bowel habits or other new gastrointestinal complaints.
--- NOTE | 2020-01-15 14:00 | PDOC.DSDIS_ITS ---
Discharge Plan Disposition Patient Disposition: HOME Condition: Good Discharge Details Reason For Visit: colon scope Attending Provider: Angelica Corcoran Primary Care Provider: Judit Corey Home Meds and New Rx's Prescriptions: Continued ibuprofen 600 mg tablet 600 mg PO TID RF: 0 acetaminophen [Acetaminophen Extra Strength] 500 MG tablet 1,000 mg PO PRN RF: 0 Discontinued polyethylene glycol 3350 17 gram/dose powder 238 g PO ONCE Qty: 238 RF: 0 bisacodyl [Dulcolax (bisacodyl)] 5 mg tablet,delayed release (DR/EC) 5 mg PO ONCE Qty: 4 RF: 0 Discharge Instructions Additional Instructions: Findings:normal Follow up:F/u w/ Dr. Corcoran in 1 week after MRI completed. Please call if you develop: fevers >101.5 Nausea or Vomiting Abdominal pain that is not transient DAY SURGERY UNIT POST COLONOSCOPY INSTRUCTIONS 1. Because there will be medication in your system for the next 24 hours, you may feel a little sleepy. Your coordination will be affected. Therefore: a. Do not drive or operate dangerous equipment for 24 hours. b. Do not drink alcohol beverages for 24 hours (not even beer). c. Plan to go home and rest for the day. 2. Generally there are no restrictions on your activity after a day or so has gone by, but you may feel a bit fatigued for a few days. 3 After you arrive home you may have a light meal and return to a normal diet as you can tolerate it without feeling sick to your stomach. 4. After surgery, you may feel pain or discomfort. This should be only transient, but if it persists please contact your doctor. 5. If there are any questions regarding the findings of your procedure, please feel free to contact your doctor. 6. If you are unable to contact your doctor with a problem, contact the hospital at [phone]. 7. Continue all your regular medications unless directed otherwise. I understand the above instructions and have no questions. Signature of Patient or Responsible Adult Escort Date/Time Name of Responsible Adult Escort Signature of Nurse Date/Time High Fiber Diet What is Dietary Fiber? All fiber comes from plants, bushes, socrates or trees. Of course, the ones that we eat provide us with fruits, vegetables and grains. There are many different types of fiber but the three that are most important to the health of the body are: Insoluble Fiber This fiber does not dissolve in water, nor is it fermented by the bacteria residing in the colon. Rather, it retains water and in so doing, helps to promote a larger, bulkier and more regular bowel activity. This, in turn, may be important in preventing disorder such as diverticulosis and hemorrhoids, and in sweeping out certain toxins and cancer causing carcinogens. Sources of insoluble fiber are: ? whole grain wheat and other whole grains ? corn bran, including popcorn, unflavored and unsweetened ? nuts and seeds ? potatoes and the skins from most fruits from trees such as apples, bananas and avocados ? many green vegetables such as green beans, zucchini, celery and cauliflower ? some fruit plants such as tomatoes and kiwi Soluble Fiber These fibers are fermented or used by the colon bacteria as a food source or nourishment. When these good bacteria grow and thrive, many health benefits occur in both the colon and the body. Soluble fiber is present in some degree in most edible plant foods, but the ones with the most soluble fiber include: ? legumes such as peas and most beans, including soybeans ? oats, rye and barley ? many fruits such as berries, plums, apples bananas and pears ? certain vegetables such as broccoli and carrots ? most root vegetables ? psyllium husk supplement products Prebiotic Soluble Fiber These are relatively newly discovered soluble plant fibers. The technical name for this fiber is inulin or fructan. When these soluble fibers are fermented by the good colon bacteria, some further significant health benefits have been shown to occur by research in many medical centers. These soluble prebiotic fibers occur in significant amounts in: ? asparagus ? yams ? onions ? garlic ? bananas ? leeks ? agave ? chicory and other root vegetables such as [place] artichokes ? wheat, rye and barley (smaller amounts) Benefits of a High Fiber Diet The health benefits of a high fiber diet, consumed on a regular basis and reaching recommended amounts (below), are now fairly well-defined. There are some additional benefits in the early research stage with the prebiotic soluble fibers. What is now known regarding a high fiber diet include: Bowel Regularity A high fiber diet promotes regularity with a softer, bulkier and regular stool pattern. This decreases the chance of hemorrhoids, diverticulosis and perhaps colon cancer. Cholesterol and Reduced Triglycerides The soluble fibers are the ones that will reduce cholesterol levels when used on a regular basis. Psyllium husk and prebiotic soluble fiber will also reduce cholesterol. They may also reduce the incidence of coronary heart disease. Oats, flax seeds and legumes or beans are the recommended fibers. Colon Polyps and Cancer It is still not certain if a high fiber diet helps prevent colon cancer. Considerable research suggests that this may occur. Certainly it makes sense to increase regularity and so speed the movement of cancer causing carcinogens through the bowel. In addition, reducing a heavy meat diet reduces the bile flow from the liver in a favorable way. This, too, reduces the amount of carcinogens that reach and are manufactured in the colon. Finally, a high fiber diet, including prebiotic soluble fiber, increases the integrity and health of the wall of the colon. The risk of cancer may be reduced. Colon Wall Integrity A high fiber diet changes the bacterial makeup of the colon toward a more favorable balance. For instance, it is known that those people with obesity, diabetes type 2 and inflammatory bowel disease have a predominance of bad bacteria in the colon. This, in turn, may render the bowel wall weak and allow bacteria and, indeed, even toxins to seep through. A high fiber diet with a modest reduction in animal and meat products may return the bacterial makeup to a more positive balance. This, in particular, has been seen when the soluble fiber prebiotics are added to the diet. Blood Sugar Soluble fiber such as in legumes (beans), oats and in prebiotic fibers slows the absorption of blood sugar and so helps regulate the sugar in the blood. Insoluble fiber on a regular basis is associated with reduced risk of type 2 diabetes. Weight Loss High fiber diets are more filling and give a sense of fullness sooner than an animal and meat based diet does. In addition, the soluble prebiotic fibers have been shown to turn off the hunger hormones produced in the wall of the gut and to increase the hormones that give a sense of fullness. Those hormones are made in the wall of the gut. New medical research has shown that the bacterial makeup in the colon in overweight people is abnormal to the extent that they manufacture and absorb almost twice the number of calories through the colon wall as do normals. Prebiotic fibers (below) will help change this hormonal balancein a favorable way. Bacteria and the Function of the Colon The colon finishes the digestive process. Hopefully, the waste products move through in a nice regular manner. Insoluble fibers help this process by retaining water and so producing a bulkier, softer stool, which is easy to pass. The additional role of the colon is to provide a home for an enormous number of micro-organisms, mostly bacteria. Recent research has shown that there are over 1,000 species of bacteria with a total bacterial count ten times the number of cells in the body. These bacteria play a major role in keeping the colon wall itself healthy. In addition, these good bacteria produce a very strong immune system for the body. They significantly increase calcium absorption and bone density. They provide other documented benefits. It is the soluble fibers in the diet that are so effective in stimulating the growth of good colon bacteria. How Much is Enough? The amount of fiber in food is measured in grams. National nutritional authorities recommend the following amounts of dietary fiber daily. Under Age 50 Over Age 50 Men 38 grams 30 grams Women 25 grams 21 grams For a week or so, it is best to tally the amount of fiber you are consuming. Boxed and packaged foods will have the amount of fiber per serving on the nutrition label. Which Fibers and Which Foods are Best? As noted, healthy fiber is only found in plants. The three major categories are whole grains, fruits and vegetables. Whole Grains Wheat, oats, barley, wild or brown rice, amaranth, buckwheat, bulgur, corn, millet, quinoa, rye, sorghum, teff and triticals. By far, wheat, oats and wild or brown rice are most common. Always buy whole grain products. White bread, baked goods and rolls almost always are made from wheat flour. Wheat flour is white because most of the fiber, vitamins and other nutrients have been removed. Try not buy enriched grains. What this means is that simple white flour has had vitamins added to it by the computer numerical control machinist. The word, enriched, implies a good and healthy product. On the contrary, enriched means that most of the fiber has been removed and a few vitamins added. Fruits Fruits come from trees such as apple and pear or from bushes or socrates. You should eat a wide variety of fruits, preferably with every meal. In many cases, the skin of a fruit such as apple will contain much of the insoluble fiber while the pulp contains most of the soluble fiber. To the extent possible, buy organic fruits as these will have little or no pesticides. Always wash fruit. Vegetables Eat a wide variety of vegetables. They should be a mainstay of lunch and dinners. Frozen vegetables retain as much nutrition and fiber as fresh vegetables. As with fruit, try to buy organic to reduce any residual pesticide ingestion. Wash fresh vegetables thoroughly. Cruciferous vegetables such as broccoli, [place] sprouts and cauliflower contain certain chemicals such as sulforaphane. This substance has very strong anti-cancer properties and should be eaten frequently. Legumes, Beans, Peas and Soybeans These vegetables have plenty of soluble fiber and should be part of a varied vegetable intake. Beans, in particular, contain a certain type of fiber that may lead to harmless gas or bloating. Nuts and Seeds These are rich sources of fiber and are a good substitute for sweets such as candies and baked sweet goods. While nuts and seeds are rich in fiber, they also contain vegetable fat and so can and do add calories. Read the Labels As noted, fresh and frozen foods are usually better. They have good nutrition and few, if any, chemicals added to them. When buying packaged foods and, in particular grains, look for three things: ? The first word on the label should be whole, such as whole wheat or whole grain. ? Check out the calories and the amount of fiber in a serving. ? How many and what other additives or chemicals are added. Fewer is always better. Do you know what each additive does? Some are added not for the benefit of the boring machine set up operator but rather for manufacturers. These could and do include sugar, artificial flavor, chemicals to prevent oxidation and spoilage, emulsifiers to blend the product. You have to be a pallet repairer. Fiber Facts, Nuggets and Pearls ? For breakfast you can easily get the day started well by using a high fiber, whole grain cereal. Check the labels. Add fruit such as blueberries and bananas. If you are an egg eater, use whole wheat or grain toast. Adding wheat germ gives you a good fiber kick. ? Always use whole grain or wheat with rolls and sandwiches. Does your fast food store not have them? Perhaps you look elsewhere. Eating an occasional black hernandez or veggie burger provides variety. ? Snacks should consist of fruit and/or nuts. While nuts are loaded with fiber, they are an energy rich food, meaning they have a lot of calories in a small packet. ? Fruit juices should contain pulp. Clear juices such as clear orange, pear or apple juice contain little fiber and have a lot of fructose. Prune juice is usually high in fiber. ? Homemade soups ? adding fresh or frozen vegetables to a chicken or vegetable stock is a good way to start homemade soup. ? Salads ? adding cooked and then chilled vegetables provide great flavoring to almost any salad. Remember, a chavez salad has lots of cooked corn in it. Small slices of apples or oranges and nuts such as chopped walnuts or sliced almonds always adds taste, variety and fiber to almost any salad. ? Fruit ? Try to eat fruit of some type with almost every meal. ? Rethink how you place the various foods on your dinner plate. Reducing the portions of the meat or animal food portion to the side with equal or more portions of vegetables, legumes and fruits portion always allows for more fiber. There was never anything magic about making the meat or animal food portion the main part of the dinner plate. Eating from smaller plates can, over time, trick your mind and skilled nursing habit of using a dinner plate. Again, there is nothing magic in an 11, 12, or 13 inch dinner plate. Fiber Supplements There are a variety of fiber supplements available on the food or pharmacy shelves. Psyllium This soluble plant fiber has been used in [place] for over 2,000 years. It is a soluble fiber with mucilage in it. This acts to retain a lot of water and also is fermented by colon bacteria. When 7 grams a day are used, it does lower cholesterol. Metamucil in various forms is psyllium. Methyl Cellulose All the cellulose products come from finely ground wood chips which are then treated in a variety of ways such as boiling in acids. Methyl cellulose is an insoluble fiber which does dissolve in water. It is also an emulsifier, meaning it blends oils and water. Citrucel is methyl cellulose (MC). MC may not be appropriate for Crohn?s disease or ulcerative colitis as several medical studies have shown that certain emulsifiers dissolve the mucous lining of the colon in animals prone to Crohn?s disease. This then allows bacteria to invade the underlying tissue. Inulin Inulin is a soluble prebiotic fiber found in many foods and which are fermented mostly in the left side of the colon. It is available in a supplement as generic inulin and in Fiber Choice. Oligofructose FOS These are also prebiotic fibers. They are fermented very quickly in the right side of the colon. Prebiotin This product is a combination of oligofructose, which feeds the bacteria in the right side of the colon and inulin, which does the same in the left side of the colon. There seems to be a benefit for this particular formula based on medical research. Prebiotic Soluble Fiber These may be the healthiest of all the soluble fibers. They grow in many plants and have had a great deal of research done on them in the last 10-15 years. These fibers are found in asparagus, yams and other root vegetables such as chicory, garlic, onion, leeks and in smaller amounts in wheat. This research has shown the following: ? Increase in good and decrease in bad colon bacteria ? Increase calcium absorption and enhanced bone mass ? Enhanced immune system ? Appetite and weight control by changing the hormone appetite signals to the brain ? May decrease colon cancer incidence ? Reduce or correct a leaky colon Eating a wide variety of plant food up to the recommended amount will likely give you enough prebiotic fiber. Supplements such as Prebiotin can be added to the diet. Short Chain Fatty Acids (SCFA) Some rather remarkable research findings have shown that one of the benefits of ingesting a lot of soluble fiber, in particular the prebiotic ones, results in larger amounts of SCFAs in the colon. These SCFAs are made by the good bacteria in the colon such as Bifidobacter and Lactobacillus. These small molecules have been shown to do the following: ? Enhance the health and integrity of the colon wall ? Provide nourishment for the cells that actually line the colon ? Increases the acidity of the colon which is a very real health benefit ? Stabilize blood sugar for diabetics ? Reduce blood cholesterol and triglyceride ? Significantly enhance immunity ? May be a benefit for Crohn?s disease and ulcerative colitis patients Fiber and Gas Everyone has intestinal gas and that is a good thing. It means that bacteria, hopefully the good ones, are thriving. The normal amount of flatus passed each day depends on sex and what is eaten. The normal number of flatus is 10-20 times a day. When the bacteria that make intestinal gases are growing, it also means that other good bacteria are using the same fibers to grow and produce multiple health benefits, including the production of healthy short-chain fatty acids. These substances are produced quietly in the colon and produce many health-related outcomes. Soluble fiber should always be used in a gradual manner. If too much is consumed at any one time, then excess, but harmless, intestinal gas can occur. People with irritable bowel syndrome are particularly prone to bloating and mild cramping. In this instance, soluble fiber in the diet or supplement should be used in small doses and increased gradually. Finally, prebiotic fibers tend to cause the production of short-chain fatty acids which acidify the colon. This, in turn, reduces or stops the growth of bacteria that make the smelly hydrogen sulfide gases that produce noxious flatus. People who consume many vegetables with prebiotics or take a prebiotic fiber supplement often have non-odoriferous flatus. Fiber and Irritable Bowel Syndrome Irritable bowel syndrome (IBS) is one of the most common disorders of the lower digestive tract. The symptoms of IBS can be quite varied. They can be a mix of several symptoms such as constipation, diarrhea, crampy abdominal discomfort, bloating and gas. An attack of IBS can be triggered by emotional tension and anxiety, poor dietary habits and certain medications. It is now known that infections in the intestine can lead to long-term IBS symptoms. Increased amounts of fiber in the diet can help relieve the symptoms of irritable bowel syndrome by producing soft, bulky stools. This helps to normalize the time it takes for the stool to pass through the colon. Recent medical research with newer techniques has shown some surprising and dramatic findings for IBS patients. Specifically, there is a very significant and abnormal shift of bacteria from those that provide health benefits to those bad bacteria that we really do not want in the gut. The technical name for this bad group of bacteria is called Firmicutes. Along with this abnormal bacterial collection, there is a smoldering low-grade inflammation in the gut wall that may contribute to symptoms. The goal for IBS patients should be to gradually increase the soluble dietary fibers in the diet so as to promote the growth of good bacteria and so suppress the bad ones along with the associated inflammation. IBS patients need to be careful of the amount of soluble fiber they consume. T he reason for this is that, while the good colon bacteria thrive on these fibers and produce health benefits, other gas-forming bacteria may generate excessive but harmless gas and subsequent bloating. Thus, soluble plant fibers or a dietary prebiotic supplement should be taken in small initial doses and then gradually increased to tolerance. Fiber and Colon Polyps/Cancer Colon cancer is a major health problem. This disease is most common in Western cultures. It is not seen very often in rural cultures where the diet is mostly plant based. Usually, colon cancer starts out as a colon polyp, a benign mushroom-shaped growth. In time it grows, and in some people it becomes cancerous. Colon cancer is usually always curable if polyps are removed when found or if surgery is performed at an early stage. It is now known that people can inherit the risk of developing colon cancer, but diet is important, too. As noted, there is a very low rate of colon cancer in residents of countries where grains are unprocessed and retain their fiber. It seems that in the [place] world, cancer-containing agents (carcinogens) remain in contact with the colon wall for a longer time and in higher concentrations. So, a large bulky stool may act to dilute these carcinogens by moving them through the bowel more quickly. Less carcinogenic exposure to the colon may mean fewer colon polyps and less cancer. A very current review of the entire world?s literature on the effect of fiber on colon polyps and cancer prevention has shown rather clearly that for every 10 grams of fiber added to the diet, there is a 10% reduction in incidence of colon cancer. So the recommended 30 gram fiber diet would result in a 30% less chance of getting these tumors. There are also substances produced in the colon by the good bacteria that seem to retard certain pre-cancer factors from developing. They are called short- chain fatty acids (SCFA). See above for description of SCFAs. A high fiber diet increases these substances. So, the combination of dietary fiber and the production of short-chain fatty acids have a clear health benefit. Fiber and Diverticulosis Prolonged, vigorous contraction of the colon over a long period of time may result in diverticulosis. This increased pressure causes small and, eventually, larger ballooning pockets to form. These pockets by themselves cause no problem. However, sometimes they become infected (diverticulitis) or even break open (perforate) causing infection or inflammation within the abdomen (peritonitis). A high fiber diet increases the bulk in the stool and thereby reduces the pressure within the colon. By so doing, the formation of pockets may be reduced or possibly even stopped. In the past, many physicians were fearful that seeds as in tomatoes, nuts or berries were harmful and could get inside these pockets and rattle around, causing damage. We now know that this has never been the case and that these foods contain lots of fiber and are actually beneficial for diverticulosis patients. Certain bulking agents such as psyllium are traditional types of bulk producing supplements. Psyllium is a soluble fiber. Combining it with insoluble fiber as in wheat bran or corn bran (no gluten) can enhance this bulking effect even more. A product containing a prebiotic, psyllium and wheat bran is probably a very good combination for bowel regularity. Prebiotin Regularity/Diverticulosis is one such product. Inflammatory Bowel Disease (IBD) IBD means Crohn?s Disease (CD) or Ulcerative Colitis (UC). CD is an inflammation of the lower small bowel and/or the colon. Bacteria actually invade and cause inflammation in the entire wall of the intestine. UC, on the other hand, is an inflammation just of the lining of the colon. It usually starts in the rectum and left colon and may spread to the entire colon from there. It is now known that in both CD and UC that the bacterial make up is abnormal. This means that there are significantly more of the bad bacteria present than the good ones. These abnormal bacteria are called Firmicutes. Fiber and Crohn?s Disease There is now some information in the medical literature on what type of diet may be harmful and what may help Crohn?s Disease. A reduction in red meat is likely helpful. So is reducing the fat in the diet, including vegetable oils. More importantly, people who had low fiber ingestion in the diet had a greater chance of getting CD. So, a gradual increase in the amount of fiber is likely helpful in hopefully preventing CD. This should always be done in conjunction with the physician. It should be done gradually and should include soluble fibers which fertilize the best colon bacteria. The good bacteria grow and push out the bad ones. These good bacteria provide short chain fatty acids, which can help heal the bowel wall. Prebiotics such as Prebiotin are available. Fiber and Ulcerative Colitis We still do not have strong evidence in the medical literature on what is the best diet for UC. Eating plenty of soluble fiber, including prebiotic fibers will nourish the best colon bacteria. It is hoped that this will result in a decrease in the bad or Firmicutes bacteria. It is well-known that when the good bacteria proliferate that they produce lots of acid substances called short chain fatty acids (SCFA). The SCFAs actually nourish the cells of the colon w all, the very ones that become inflamed in UC. In addition, when the colon contents become acid, the smelly sulfide gases are not produced and the flatus becomes less noxious and may even have no smell at all. This may have a beneficial effect on the inflammation. Prebiotics such as Prebiotin are the best type of soluble fiber. Activity:: No lifting over 20 pounds Diet:: Small light meals x24 janelle Discharge Orders Discharge Orders: Discharge Order (Routine); Ordered 01/15/20 Ordered By: Angelica Corcoran DS: Diagnosis Discharge Diagnosis (1) Intra-abdominal adhesions: Status: Acute (2) History of umbilical hernia repair: Status: Acute (3) Partial small bowel obstruction: Status: Acute (4) Colon cancer screening: Status: Acute
[2020-01-15 14:30] VITALS: BP 103/67; PULSE 50; RESP 18; TEMP 36.4; O2SAT 98
== END 2020-01-15 14:45 | disposition home or self-care (01) ==
PROVIDERS: Visit Provider Surgery
PROC: 0DJD8ZZ Inspection of Lower Intestinal Tract, Via Natural or Artificial Opening Endoscopic (ICD-10-PCS; CPT 45378; principal; 2020-01-15 13:00)
DX: Z12.11 Encounter for screening for malignant neoplasm of colon (principal); I44.4 Left anterior fascicular block
CPT/HCPCS: 45378

== ENCOUNTER 2020-04-09 02:27 | Outpatient (CLI) | payer BC, SELFPAY ==
[2020-04-10 16:42] LABS: COVID-19 RT-PCR Result NEGATIVE (Negative)
== END 2020-04-09 02:47 ==
PROVIDERS: Visit Provider Surgery
DX: Z11.59 Encounter for screening for other viral diseases (principal); Z01.818 Encounter for other preprocedural examination
CPT/HCPCS: U0003

== ENCOUNTER 2020-04-13 09:00 | Day surgery (SDC) | payer BC, SELFPAY ==
[2020-04-13] VITALS (9 sets, daily range): BP systolic 98–127; BP diastolic 62–90; PULSE 48–60; RESP 12–21; TEMP 36–36.4; O2SAT 96–99
[2020-04-13] MEDS: Lactated Ringers 1,000 ML 80 ML IV (10:09)
--- NOTE | 2020-04-13 10:45 | W.PM.DSUDISC ---
Discharge Plan Disposition Patient Disposition: HOME Condition: Good Discharge Details Reason For Visit: Left inguinal hernia repair with mesh Attending Provider: April Hunter Primary Care Provider: Judit Corey Home Meds and New Rx's Prescriptions: New hydrocodone-acetaminophen 5-325 mg Tablet 1 tab PO Q4H PRN (Reason: Pain) Qty: 12 RF: 0 Continued ibuprofen 600 mg tablet 600 mg PO TID RF: 0 acetaminophen [Acetaminophen Extra Strength] 500 MG tablet 1,000 mg PO PRN RF: 0 Discharge Instructions Additional Instructions: The top bandage can be removed tomorrow. The steri strips will usually stick for about a week. When the edges start to curl up, they can be removed. It is okay to shower tomorrow, the water can run over the steri strips Do not swim or soak in a tub for two weeks Call for any concerns including fever, increased pain, vomiting, incision redness or drainage. Do not lift more than 15 pounds for four weeks. Walking and stairs are fine. Do not drive if on narcotic pain meds or if limited by pain. May use Tylenol alternating with ibuprofen for pain control. Ice is also an option. The maximum dose for Tylenol is 4000 mg/day. May use ibuprofen 800 mg every 8 hours as needed. If concerned about constipation, you may use a stool softener or milk of magnesia. Referrals: April Hunter MD [ [facility]FF [facility]YSICIAN] - (Return in 10-14 days for a postop check) Activity:: Do not lift more than 15 pounds for 4 weeks Remove Dressings/Wound Care:: 24 hours Shower/Bathe:: 24 hours Diet:: As Tolerated Discharge Orders Discharge Orders: Discharge Order (Routine); Ordered 04/13/20 Ordered By: April Hunter DS: Diagnosis Discharge Diagnosis (1) Left inguinal hernia: Status: Acute
--- NOTE | 2020-04-13 10:50 | ROE_ITS ---
Date of service: 04/13/20 Time of Service: 13:01 Operative Note Operative Note DATE OF PROCEDURE: 04/13/20 PRE-OP DIAGNOSIS: Left inguinal hernia POST-OP DIAGNOSIS: same PROCEDURE: Left inguinal hernia repair with mesh SURGEON: April Hunter GENERAL MACHINE OPERATOR: Kayleigh Gonsales ANESTHESIA: GETA, regional and local Indications: This 54 year old man presents with a painful left inguinal hernia. Shown to contain fat on US and CT. Procedure Description: The patient was placed supine on the operating table and his left groin was prepped and draped sterilely. The ASIS and pubic tubercle were identified and a transverse incision marked between the 2 locations. Local anesthetic was infiltrated and the Ioban placed. Incision was made with knife and subcutaneous tissue divided with cautery down to the external oblique fascia. Any bridging veins that were encountered were clamped, divided and ligated with 3-0 Vicryl ties. A small incision was made in the external oblique fascia and extended bluntly through the external inguinal ring. The spermatic cord was dissected free at the level of the pubic tubercle and encircled with a [place] drain. The floor of the inguinal canal was intact. A small amount of herniated fat was present medial to the cord. This was dissected free up to the internal ring and reduced. The spermatic cord was inspected with no other hernia sac present. A small mesh plug was sutured into the internal ring with interrupted 2-0 Prolene sutures. A flat sheet of mesh was sutured to the floor of the inguinal canal in standard Sylvia fashion. The cord was inspected and was not compressed by the mesh. There was good hemostasis. The external oblique fascia was closed with a running 3-0 Vicryl stitch and Keyana's fascia closed with interrupted 3-0 Vicryl sutures. The skin was then closed with a running 4 Monocryl subcuticular stitch. He tolerated the procedure well and was stable to recovery.
[2020-04-13] MEDS: ceFAZolin 2 GM/50 ML BAG IVPB (11:42)
[2020-04-13] MEDS: HYDROcodone 5/Acetaminophen 325 TAB PO (15:03)
== END 2020-04-13 16:05 | disposition home or self-care (01) ==
PROVIDERS: Visit Provider Surgery
PROC: (CPT 49505; principal; 2020-04-13 11:45)
DX: K40.90 Unilateral inguinal hernia, without obstruction or gangrene, not specified as recurrent (principal); G89.18 Other acute postprocedural pain
CPT/HCPCS: 49505; 76942; C1781; J0690; J1100; J1885; J2001; J2405

== ENCOUNTER 2020-05-17 18:17 | Outpatient (CLI) | payer BC, SELFPAY ==
--- NOTE | 2020-05-17 10:15 | DI.RAD_ITS ---
EXAM: XR SHOULDER RT COMPLETE 2+V CLINICAL HISTORY: right shoulder pain M75.51 BURSITIS OF RT SHOULDER. TECHNIQUE: 2D digital imaging was performed. COMPARISON: No prior right shoulder image studies FINDINGS: No evidence fracture or dislocation or abnormal soft tissue calcification in subacromial space. The main finding here some degenerative changes glenohumeral joint fluid in a small osteophyte on the inferior articular surface of the humeral head. No prominent joint space narrowing. AC joint appears unremarkable. IMPRESSION: Degenerative changes in glenohumeral joint. DATA REPOSITORY: RADIATION DOSE DELIVERED:
== END 2020-05-17 18:37 ==
DX: M19.011 Primary osteoarthritis, right shoulder (principal); M75.51 Bursitis of right shoulder
CPT/HCPCS: 73030

== ENCOUNTER 2020-06-21 00:20 | Outpatient (CLI) | payer BC, SELFPAY ==
--- NOTE | 2020-06-21 07:00 | DI.MRI_ITS ---
EXAM: MR LOWER JOINT LT WO CLINICAL HISTORY: Questioning menisceal degenerative tear,LT KNEE PAIN,M25.562 TECHNIQUE: Multiplanar multisequence MRI of the knee was performed. COMPARISON: MR MRI R LOWER JOINT WO CONT from 08/25/2009 FINDINGS: EFFUSION: There is a moderate size knee joint effusion. There is a Harvey cyst in the medial poplitea l fossa which measures 5 cm cephalocaudal length by 0.9 cm AP by 1 cm wide. MARROW:There is no evidence of fracture, bone contusion, nor osteochondral defects.. There are no si gnificant osseous lesions. PATELLOFEMORAL COMPARTMENT: The quadriceps tendon is intact. The patellar ligament is intact. There is no significant thinning of the retropatellar cartilage. No evidence of fissure nor signific ant chondral defect. No osteochondral defect at this level.There is no intraosseous signal to sugges t recent patellar dislocation. There are no patellar retinacular tears. CRUCIATE LIGAMENTS: The anterior cruciate ligament is intact.The posterior cruciate ligament is intac t. MEDIAL COMPARTMENT/MEDIAL MENISCUS: There is complex tear involving both the posterior and anterior h orns of the medial meniscus. Posteriorly the meniscal root appears intact. There is mild signal abnormality in the overlying Roslyn cartilage. No osteochondral defect but th ere is a very small amount of subarticular edema in the main weight-bearing surface of the medial fem oral condyle at this level. There are no marginal osteophytes evident. MEDIAL COLLATERAL LIGAMENT: Intact LATERAL COMPARTMENT/LATERAL MENISCUS: There is myxoid degeneration signal seen in the posterior horn of the lateral meniscus but no true tear of this structure. Anterior horn is intact.There are no cho ndral defects, osteochondral defects, subarticular marrow edema, nor osteophytes evident. ILIOTIBIAL BAND: Intact LATERAL COLLATERAL LIGAMENT COMPLEX: The fibular collateral ligament is intact. The biceps femoris t endon is intact.Popliteus muscle and tendon are intact. IMPRESSION: 1. The main finding here is a complex tear of the medial meniscus involving both posterior and anteri or horns. No bucket-handle configuration nor obvious flip fragment signal abnormalities interposed b etween the torn meniscus and the MCL but there is no prominent MCL tear. Mild degenerative changes i n the medial compartment. No osteophytes. 2. There are no tears of the lateral meniscus nor significant degenerative changes in the lateral com partment. 3. Cruciate ligaments are intact and there is no abnormality of the iliotibial band. Components of t he lateral collateral ligament complex are intact. 4. There is a moderate-sized joint effusion and there is also a Harvey cyst in the medial popliteal fo ssa as described above. DATA REPOSITORY:
== END 2020-06-21 00:21 ==
LOC: DI 00:20
PROVIDERS: Visit Provider Nurse Practitioner Family
DX: S83.242A Other tear of medial meniscus, current injury, left knee, initial encounter (principal); M17.12 Unilateral primary osteoarthritis, left knee; M25.462 Effusion, left knee; M71.22 Synovial cyst of popliteal space [Baker], left knee
CPT/HCPCS: 73721

== ENCOUNTER 2020-07-26 03:20 | Outpatient (CLI) | payer BC, SELFPAY ==
[2020-07-26 10:14] LABS: Source Nasal/Nares
[2020-07-26 14:34] LABS: COVID-19 PCR Negative (Negative)
== END 2020-07-26 03:21 | disposition home or self-care (01) ==
LOC: LBO 03:20
PROVIDERS: Visit Provider Student in an Organized Health Care Education/Training Program
DX: Z20.822 Contact with and (suspected) exposure to COVID-19 (principal); Z01.818 Encounter for other preprocedural examination
CPT/HCPCS: 87635

== ENCOUNTER 2020-07-27 10:48 | Day surgery (SDC) | payer BC, SELFPAY ==
[2020-07-27] VITALS (10 sets, daily range): BP systolic 110–129; BP diastolic 78–96; PULSE 52–71; RESP 11–18; TEMP 36.2–36.6; O2SAT 95–99
[2020-07-27] MEDS: Acetaminophen 500 MG TAB 1000 MG PO (11:20)
[2020-07-27] MEDS: Celecoxib 200 MG CAP 400 MG PO (11:20)
[2020-07-27] MEDS: Gabapentin 300 MG CAP PO (11:20)
[2020-07-27] MEDS: Lactated Ringers 1,000 ML 80 ML IV (11:50)
--- NOTE | 2020-07-27 12:15 | HPE_ITS ---
Date of service: 07/27/20 Time of Service: 12:15 Assessment and Plan Assessment and plan (1) Complex tear of medial meniscus of left knee: Status: Acute Assessment and plan: Winston is a 54-year-old who has a complex medial meniscal tear of the left knee. He is try conservative options but continues have pain. Given the persistent pain and the MRI findings I recommended a partial medial meniscectomy and arthroscopy. I reviewed the surgery with him in the office. Once again I discussed the risk of the procedure to include bleeding, infection, pain, stiffness, worsening arthritis, continued pain, instability, clot, need for repeat procedures. Despite these risk, he elects to proceed. Qualifiers: Tear current or old: current Encounter type: initial encounter Qualified Code(s): S83.232A - Complex tear of medial meniscus, current injury, left knee, initial encounter History of Present Illness History of Present Illness Chief Complaint: Left Knee Pain Narrative: Winston is a 54-year-old who has seen previous in the office for left knee pain. He has pain for greater than 4 years. He continues to limit him especially any turning or twisting or bending. MRI was performed which demonstrates a complex medial meniscal tear with significant displacement. Given a failure of conservative options I offered the arthroscopy partial medial meniscectomy. He is here today for that procedure. He denies any chest pain or shortness of breath. He denies any Covid contacts. He is COVID-19 negative. He has had no change to his health. Review of Systems All systems reviewed & are unremarkable except as noted in HPI and below PFSH Medical History Colon cancer screening Encounter for annual physical exam Hx of hearing loss Intra-abdominal adhesions Left knee pain ? mensical degenerative tear Partial small bowel obstruction Surgical History History of umbilical hernia repair Done laparoscopically with [place] [address] Roy Family History Mother , 63 Depression Lung cancer Father , 69 Essential hypertension Cerebral ischemia Neoplasm ? PANCREATIC Pancreatic cancer ??? Sister No problems noted. Maternal Grandmother , 101 No problems noted. Son No problems noted. Daughter No problems noted. Paternal Family history Heart disease Myocardial infarction Maternal Grandfather No problems noted. Maternal Grandfather No problems noted. Paternal Grandmother No problems noted. Social History Smoking/Tobacco Use Status: Never Smokeless tobacco user: chewing tobacco Quit status: has quit before Second Hand Exposure: Yes Smoking risk assessment performed?: Yes Alcohol Intake: current Alcohol Intake frequency: holidays/special occasions only Alcohol type: hard liquor Drug use: Never Substance use type: does not use Household members: spouse and children Housing: house Do you need help understanding health information?: Never Pets and animals: Yes Pets and animals: cat(s) and dog(s) Sexually active: Yes Do you think of yourself as: straight/heterosexual Current gender identity: male What is your relationship status?: How often do you talk on the phone with friends or family?: three or more times per week How often do you get together with friends or relatives?: once per week How often do you attend zoroastrianism or taoism services?: decline to answer Do you belong to any clubs or organized social groups?: no Panel score (0-1 are the most socially isolated patients): 2 What type of physical activity do you participate in: decline to answer Duration: decline to answer Frequency: decline to answer Elisa/Buddhism: No preference Special elisa needs: No Seatbelt use: always Helmet use: Yes Helmet use: always Drive intox or ride w/intox company driver: No Do you feel safe at home: Yes Do you feel safe in your relationship?: Yes Meds Home Medications and Allergies Allergies Allergy/AdvReac Type Severity Reaction Status Date / Time No Known Allergies Allergy Verified 07/27/20 10:59 Home Medications Medication Instructions Recorded Confirmed Type acetaminophen [Acetaminophen Extra 1,000 mg PO PRN tab-cap 07/03/14 07/27/20 History Strength] ibuprofen 600 mg tablet 600 mg PO TID tab 11/26/18 07/27/20 History lidocaine 5 % topical patch 1 patch TOPICAL DAILY PRN #30 ea 06/14/20 07/27/20 Rx Exam Narrative Exam Narrative: Winston is in no acute distress. Alert and x3. Sitting upright in the chair. Heart rate and regular. Chest clear auscultation bilaterally. Left knee shows a mild effusion with pain along the medial joint line. No signs of infection. Results Last Vital Signs Temp 36.2 C L 07/27/20 10:45 Pulse 60 07/27/20 10:45 Resp 17 07/27/20 10:45 BP 125/81 07/27/20 10:45 Pulse Ox 97 07/27/20 10:45
[2020-07-27] MEDS: ceFAZolin 2 GM/50 ML BAG IVPB (12:39)
[2020-07-27] MEDS: Bupivacaine 0.5% Pres-Free 30 ML VIAL (13:08)
--- NOTE | 2020-07-27 13:34 | W.PM.DSUDISC ---
Discharge Plan Disposition Patient Disposition: HOME Condition: Good Discharge Details Reason For Visit: Left Knee Arthroscopy Attending Provider: Lewis Reed Primary Care Provider: Judit Corey Home Meds and New Rx's Prescriptions: New hydrocodone-acetaminophen 5-325 mg tablet 1 tab PO Q6H PRNQty: 5 RF: 0 Continued ibuprofen 600 mg tablet 600 mg PO TID RF: 0 lidocaine 5 % adhesive patch,medicated 1 patch topical DAILY PRN (Reason: pain) Qty: 30 RF: 0 acetaminophen [Acetaminophen Extra Strength] 500 MG tablet 1,000 mg PO PRN RF: 0 Discharge Instructions Stand Alone Forms: Brianna Knee Arthroscopy Referrals: Lewis Reed MD [ [facility] STAFF PHYSICIAN] - Equipment/Supplies: Partial Weight Bearing Crutches Activity:: Activity as Tolerated Remove Dressings/Wound Care:: 72 hours Shower/Bathe:: 72 hours Diet:: As Tolerated Discharge Orders Discharge Orders: Discharge Order (Routine); Ordered 07/27/20 Ordered By: Rhoda Murry DS: Diagnosis Discharge Diagnosis (1) Complex tear of medial meniscus of left knee: Status: Acute
[2020-07-27] MEDS: oxyCODONE 5 MG TAB PO (15:49)
--- NOTE | 2020-07-27 21:48 | W.PM.OP ---
Date of service: 07/28/20 Time of Service: 13:48 Operative Note Operative Note DATE OF PROCEDURE: 07/28/20 PRE-OP DIAGNOSIS: Left Knee Complex Medial Meniscus Tear POST-OP DIAGNOSIS: same Left Knee Lateral Meniscus Tear SURGEON: Lewis Reed ANESTHESIA TYPE: General LMA/ETT Refer to Anesthesia Record ESTIMATED BLOOD LOSS: 0 PATHOLOGY: none sent TOURNIQUET TIME: 0 COMPLICATIONS: None Patient was transported to: PACU Patient's condition: stable Indications: I have seen Winston in clinic for symptoms of a meniscus tear. This was confirmed based on MRI and exam findings. Nonoperative measures were exhausted but disability and pain persisted. I discussed knee arthroscopy with meniscal intervention with the patient. I reviewed the risks of the procedure to include, but not limited to, bleeding, infection, pain, stiffness, damage to nerves or vessels, recurrence, blood clot. Despite these risks, the patient elected to proceed. Findings: A diagnostic arthroscopy was performed with the following findings: Suprapatellar Pouch: Mild inflammatory changes, No loose bodies Medial Compartment: Complex medial meniscal tear with displaced fragments, Intact meniscal root with tear extending into the root but with peripheral attachments, Mild chondromalacia - Grade I, No loose bodies Notch: ACL and PCL were intact Lateral Compartment: Complex tearing of the central aspect of the lateral meniscus posterior horn, Intact meniscal root, No significant chondromalacia or signs of arthritis, No loose bodies Patellofemoral Compartment: No significant chondromalacia, No apparent patellar maltracking Procedure Description: Winston was greeted in the preoperative holding area where the correct side was identified and marked. The consent was reviewed with the patient and signed. The history and physical was updated. All questions were answered. He was taken back to the operating room. The patient was placed into the supine position on the operating room table. A nonsterile tourniquet was placed high onto the leg but not used. All bony prominences were well padded. Prophylactic antibiotics in the form of cefazolin were administered. The left leg was then prepped with Chloraprep and draped in a standard fashion with stockinette and extremity drape. A timeout to confirm correct identity, side and site, procedure, allergies, anesthesia, and medical concerns was performed. The leg was placed into a pneumatic leg giles, [id number]. A standard lateral portal was made at the lateral border of the patella tendon in line with the inferior pole of the patella, soft spot. The skin and deep tissue was incised sharply and the blunt trochar was inserted atraumatically. A diagnostic arthroscopy was performed and the findings are listed above. The suprapatellar pouch had some mild inflammatory changes. The patellofemoral articulation showed no articular damage as well as good tracking. The lateral gutter had no loose bodies and the medial gutter had no loose bodies. The knee was brought into some valgus stress in extension to open the medial compartment. A medial portal was made, localized by a spinal needle. The portal was created with an #11 blade through skin and capsule under direct visualization avoiding any meniscal injury. A probe was then inserted into the medial compartment. The medial compartment was fully inspected. The chondral surface of the tibia showed some grade I chondromalacia and the surface of the femur showed similar grade I chondromalacia. The medial meniscus had a complex tear with multiple free pieces. There is a horizontal tear extending through the horn into the body of the medial meniscus. There is a more vertical oriented tear extending from the horn towards the root. There are at least 2 to 3 pieces displaced behind the tibia as well as over the remaining meniscus medially. The scope was driven through the notch to evaluate the meniscal root. There was a tear extending into the root but it did not involve the entirety of the root and there were still peripheral fibers attached from the root to remaining meniscus. After evaluation, the meniscus was debrided down to a stable base using a series of biters and arthroscopic penny. It was probed afterwards to confirm that the tear had been removed and the meniscus was stable. The notch was then inspected which showed an intact ACL and an intact PCL. The leg was then brought into a figure of 4 position. The lateral compartment was fully inspected with the arthroscope and a probe. The chondral surface of the lateral femur showed no significant chondromalacia. The chondral surface of the lateral tibia showed no significant chondromalacia. The lateral meniscus had some complex tearing at the posterior horn. After evaluation, the meniscus was debrided down to a stable base using a series of biters and arthroscopic penny. It was probed afterwards to confirm that the tear had been removed and the meniscus was stable. Cartilage surfaces were debrided of any flaps, leaving any intact fibers. The arthroscope was brought back into the suprapatellar pouch and the leg was in full extension. The knee was thoroughly irrigated with the arthroscopic fluid on high flow and pressure. Inflow was stopped and excess fluid was removed. The wounds were closed with 4-0 Nylon. The knee and the surrounding soft tissues were injected with 0.5% bupivacaine. The wounds were dressed with Xeroform, 4x4 gauze, ABD pad, Kerlix and an AMELIA wrap. A cryo-cuff was applied. The patient tolerated the procedure well and was returned to the Same Day Surgery area in a stable condition suffering no known complication.
== END 2020-07-27 16:38 | disposition home or self-care (01) ==
PROVIDERS: Visit Provider Student in an Organized Health Care Education/Training Program
PROC: (CPT 29870; principal; 2020-07-27 13:45)
DX: S83.232A Complex tear of medial meniscus, current injury, left knee, initial encounter (principal); S83.272A Complex tear of lateral meniscus, current injury, left knee, initial encounter; M94.262 Chondromalacia, left knee; K21.9 Gastro-esophageal reflux disease without esophagitis; F41.9 Anxiety disorder, unspecified; X58.XXXA Exposure to other specified factors, initial encounter
CPT/HCPCS: 29880; NC; J0690; J1100; J1885; J2001; J2250; J2405; J2704; J3010

== ENCOUNTER 2020-09-17 20:30 | Outpatient (REF) | payer BC, SELFPAY ==
[2020-09-17 21:21] LABS: ALT 31 U/L (16-63); AST 16 U/L (15-37); Albumin 4.1 g/dL (3.4-5.0); Alkaline Phosphatase 66 U/L (46-116); Anion Gap 11.1 mmol/L (3-11); BUN 12 mg/dL (7-18); Bilirubin, Total 0.8 mg/dL (0.2-1.0); CO2 24.9 mmol/L (21.0-32.0); CREATININE 1.5 mg/dL (0.70-1.30); Calculated LDL 74 mg/dL (<100); Chloride 109 mmol/L (98-107); Cholesterol 125 mg/dL (<200); Estimated GFR 48.95 (mL/min/1.73m2); Glucose 89 mg/dL (74-106); HDL Cholesterol 40 mg/dL (40-60); Potassium 4.5 mmol/L (3.5-5.1); Sodium 145 mmol/L (136-145); Total Protein 6.7 g/dL (6.4-8.2); Triglyceride 56 mg/dL (<150)
== END 2020-09-17 20:31 | disposition home or self-care (01) ==
LOC: LBN 20:30
DX: Z00.00 Encounter for general adult medical examination without abnormal findings (principal); Z13.220 Encounter for screening for lipoid disorders
CPT/HCPCS: 80053; 80061

== ENCOUNTER 2021-10-17 08:44 | Outpatient (CLI) | payer BC, SELFPAY ==
--- NOTE | 2021-10-17 08:30 | DI.RAD_ITS ---
Exam(s) XR KNEE LT 4V AP,LAT,STEVE,PAT XR KNEE RT 4V AP,LAT,STEVE,PAT EXAM: XR KNEE RT 4V AP,LAT,STEVE,PAT CLINICAL HISTORY: eval R knee pain. TECHNIQUE: 2D digital imaging was performed. Four views of both knees. COMPARISON: CR XR KNEE LT 4V AP,LAT,STEVE,PAT from 10/17/2021 FINDINGS: BONES: No acute fracture is present. No bony destructive lesion is seen. JOINTS: The knee is normally aligned. No joint effusion is seen. Mild spurring at the articular aspec t of the patella. There is mild narrowing of the medial femoral tibial joint space of the left knee. The remaining joint spaces are well maintained. SOFT TISSUE: Normal. IMPRESSION: Mild bilateral patellofemoral degenerative changes. Mild degenerative changes of the medial femoral tibial joint of the left knee. DATA REPOSITORY: RADIATION DOSE DELIVERED:
== END 2021-10-17 08:45 | disposition home or self-care (01) ==
LOC: DIORS 08:44
PROVIDERS: Visit Provider Student in an Organized Health Care Education/Training Program
DX: M25.561 Pain in right knee; M25.562 Pain in left knee; M17.12 Unilateral primary osteoarthritis, left knee; M22.8X1 Other disorders of patella, right knee; M22.8X2 Other disorders of patella, left knee
CPT/HCPCS: 73564

== ENCOUNTER → 2021-11-25 00:39 | Outpatient (CLI) | payer BC, SELFPAY ==
--- NOTE | 2021-11-25 09:20 | DI.MRI_ITS ---
Exam(s) MR LOWER JOINT LT WO EXAM: MR LOWER JOINT LT WO CLINICAL HISTORY: PAIN,internal derangement, m23.92. TECHNIQUE: Multiplanar multisequence MRI was performed. COMPARISON: MR MR LOWER JOINT LT WO from 06/21/2020 CR XR KNEE RT 4V AP,LAT,STEVE,PAT from 10/17/2021 CR XR KNEE LT 4V AP,LAT,STEVE,PAT from 10/17/2021 MR MR LOWER JOINT RT WO from 11/25/2021 FINDINGS: BONES: There is no fracture or contusion pattern. JOINTS: Articular cartilage over medial femoral condyle and medial tibial plateau shows mild thinning and irregularity. No focal defects. Mild thinning of the cartilage at the inferior pole of the pat mumtaz.. A small joint effusion is present. TENDONS: Extensor mechanism: Unremarkable. Medial retinaculum: Unremarkable. Lateral retinaculum: Unremarkable. Popliteus: Unremarkable. MUSCLES: Unremarkable. MENISCI: The medial meniscus is somewhat diminutive. No change in appearance of irregular tear of th e posterior horn and body. The lateral meniscus is unremarkable. SOFT TISSUES: Unremarkable. LIGAMENTS: Anterior Cruciate: Unremarkable. Posterior Cruciate: Unremarkable. Medial Collateral:Unremarkable. Lateral Collateral: Unremarkable. OTHER: Small Harvey's cyst. IMPRESSION: Stable appearance of medial meniscus with tear of the posterior horn and body. Degenerative changes medial femoral tibial joint with cartilage thinning. DATA REPOSITORY:
--- NOTE | 2021-11-25 09:55 | DI.MRI_ITS ---
Exam(s) MR LOWER JOINT RT WO EXAM: MR LOWER JOINT RT WO CLINICAL HISTORY: PAIN,internal derangement, m23.91. TECHNIQUE: Multiplanar multisequence MRI was performed. COMPARISON: CR XR KNEE RT 4V AP,LAT,STEVE,PAT from 10/17/2021 FINDINGS: BONES: There is no fracture or contusion pattern. JOINTS: Articular cartilage i overlying the medial femoral condyle shows thinning and irregularity. There is an underlying small area of high signal in the subcortical bone.. A small joint effusion is present. TENDONS: Extensor mechanism: Unremarkable. Medial retinaculum: Unremarkable. Lateral retinaculum: Unremarkable. Popliteus: Unremarkable. MUSCLES: Unremarkable. MENISCI: The medial meniscus is is somewhat peripherally displaced consistent with degenerative shearer es. There is some irregular signal in the posterior horn at the inferior surface. No discrete linea r tear is seen.. The lateral meniscus is unremarkable. SOFT TISSUES: Unremarkable. LIGAMENTS: Anterior Cruciate: Appears somewhat thinned but there is no visible focal tear.. Posterior Cruciate: Unremarkable. Medial Collateral:Unremarkable. Lateral Collateral: Unremarkable. OTHER: Small Harvey's cyst. IMPRESSION: Increased irregular signal near the inferior articular surface of the posterior horn of the medial me niscus likely represents degenerative changes. There is overlying cartilage thinning and irregularit y extending down to bone of the medial femoral condyle.. Small Harvey's cyst and small joint effusion also present. DATA REPOSITORY:
== END ==
PROVIDERS: Visit Provider Student in an Organized Health Care Education/Training Program
DX: M23.92 Unspecified internal derangement of left knee (principal); M23.91 Unspecified internal derangement of right knee; M17.12 Unilateral primary osteoarthritis, left knee; S81.012A Laceration without foreign body, left knee, initial encounter; M71.21 Synovial cyst of popliteal space [Baker], right knee; M25.461 Effusion, right knee; X58.XXXA Exposure to other specified factors, initial encounter
CPT/HCPCS: 73721

== ENCOUNTER 2022-01-13 01:51 | Outpatient (CLI) | payer BC, SELFPAY ==
[2022-01-13 12:39] LABS: Hemoglobin A1C 5.7 % (<5.7)
[2022-01-13 13:33] LABS: ALT 52 U/L (16-63); AST 19 U/L (15-37); Albumin 4.2 g/dL (3.4-5.0); Alkaline Phosphatase 70 U/L (46-116); Anion Gap 9.3 mmol/L (3-11); BUN 15 mg/dL (7-18); Bilirubin, Total 0.8 mg/dL (0.2-1.0); CO2 27.7 mmol/L (21.0-32.0); CREATININE 1.5 mg/dL (0.70-1.30); Calcium 8.9 mg/dL (8.5-10.1); Chloride 104 mmol/L (98-107); Estimated GFR 54.64 (mL/min/1.73m2); Glucose 113 mg/dL (74-106); Sodium 141 mmol/L (136-145); Total Protein 6.8 g/dL (6.4-8.2)
== END 2022-01-13 01:52 | disposition home or self-care (01) ==
LOC: LBO 01:51
PROVIDERS: Visit Provider Nurse Practitioner Family
DX: N28.9 Disorder of kidney and ureter, unspecified (principal)
CPT/HCPCS: 36415; 80053; 83036

== ENCOUNTER 2022-04-12 09:52 | Day surgery (SDC) | payer BC, SELFPAY ==
[2022-04-12] VITALS (11 sets, daily range): BP systolic 100–150; BP diastolic 75–101; PULSE 49–66; RESP 10–20; TEMP 36–36.5; O2SAT 96–99; BMI 28.4
--- NOTE | 2022-04-12 07:49 | W.PM.DSUDISC ---
Date of service: 04/12/22 Time of Service: 09:44 Discharge Plan Disposition Patient Disposition: Home Condition: Good Discharge Details Reason For Visit: Right knee medial meniscus tear Attending Provider: Lewis Reed Primary Care Provider: Juan José Houser Home Meds and New Rx's Prescriptions: New acetaminophen 500 mg tablet 500 mg PO Q6H PRN (Reason: pain) Qty: 60 2RF hydrocodone-acetaminophen 5-325 mg tablet 1 tab PO Q6H PRN (Reason: severe pain) Qty: 6 0RF Rx Instructions: Take one tablet up to every 6 hours as needed for severe postoperative pain ibuprofen 600 mg tablet 600 mg PO TID PRN (Reason: pain) Qty: 60 0RF Continued aspirin 81 mg tablet,delayed release (DR/EC) 81 mg PO DAILY Discontinued ibuprofen 400 mg tablet 400 mg PO Q8H acetaminophen [Acetaminophen Extra Strength] 500 MG tablet 1,000 mg PO PRN Discharge Instructions Stand Alone Forms: [facility] Equipment/Supplies: Partial Weight Bearing Crutches Activity:: Elevate Remove Dressings/Wound Care:: 72 hours Shower/Bathe:: 72 hours Diet:: As Tolerated Discharge Orders Discharge Orders: Discharge Order (Routine); Ordered 04/12/22 Ordered By: Angelica Guerra
--- NOTE | 2022-04-12 09:49 | W.ANESPRE ---
General Info Date of Service Date Performed: 04/12/22 Height: 5 ft 9 in Weight: 87.4 kg Body Mass Index (BMI): 28.4 Surgical Procedure: Operation Date: 04/12/22 11:55 Proposed Procedure Side Surgeon p Knee Arthroscopy, Partial Medial Menisectomy Left Lewis Reed MD Meds Allergies and Home Medications Allergies Allergy/AdvReac Type Severity Reaction Status Date / Time No Known Allergies Allergy Verified 04/12/22 10:28 Home Medication Medication Instructions Recorded aspirin 81 mg tablet,delayed 81 mg PO DAILY 10/18/20 release acetaminophen 500 mg tablet 500 mg PO Q6H PRN pain #60 tabs 04/12/22 hydrocodone 5 mg-acetaminophen 325 1 tab PO Q6H PRN severe pain #6 04/12/22 mg tablet tabs ibuprofen 600 mg tablet 600 mg PO TID PRN pain #60 tabs 04/12/22 Current Visit Medications: Current Medications Generic Name Dose Route Start Last Admin Trade Name Freq PRN Reason Stop Dose Admin Acetaminophen 1,000 mg 04/12/22 06:00 Acetaminophen 500 Mg Tab PO 04/12/22 16:00 PREOP PETER Acetaminophen 650 mg 04/12/22 07:48 Acetaminophen 325 Mg Tab PO Q4H PRN PRN Hydrocodone Bitart/Acetaminophen 0 tab 04/12/22 07:48 Hydrocodone 5/Acetaminophen 325 Tab PO Q3H PRN PRN Pain Celecoxib 400 mg 04/12/22 06:00 Celecoxib 200 Mg Cap PO 04/12/22 16:00 PREOP PETER Gabapentin 300 mg 04/12/22 06:00 Gabapentin 300 Mg Cap PO 04/12/22 16:00 PREOP [facility] Ringer's Solution 1,000 mls @ 80 mls/hr 04/12/22 06:00 IV 05/11/22 23:59 INFUSION PETER Cefazolin Sodium/Dextrose 2 gm in 50 mls @ 100 mls/hr 04/12/22 06:00 Ancef Duplex IVPB 04/12/22 16:00 PREOP [facility] IV Miscellaneous Supplies 1 each 04/12/22 06:00 Iv Access IV 05/11/22 23:59 DIRECTED PETER Sodium Chloride 0 ml 04/12/22 06:00 Normal Saline Flush 10 Ml Syr IV 05/11/22 23:59 PRN PRN Sodium Chloride 0 ml 04/12/22 06:00 Normal Saline 10 Ml Vial IJ 05/11/22 23:59 DIRECTED PRN Sterile Water 0 ml 04/12/22 06:00 Water,Injection,Sterile 10 Ml Vial IJ 05/11/22 23:59 DIRECTED PRN PFSH Active Problems Active Problems: Problem Status Onset Code Tendinitis of left rotator cuff 06/21/16 M75.82 Sleep disorder 08/06/17 G47.9 Situational anxiety 08/06/17 F41.8 Non-celiac gluten sensitivity 06/22/15 K90.41 Left anterior fascicular block (LAFB) 08/06/17 I44.4 Gastroesophageal reflux disease without esophagitis 08/06/17 K21.9 Bursitis of right shoulder M75.51 Patellofemoral arthralgia of both knees M22.2X1, M22.2X2 Pes planus of both feet M21.41, M21.42 Non-celiac gluten sensitivity 06/22/15 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 Glenoid labrum tear 06/21/16 S43.439A Paresthesia R20.2 Left knee pain M25.562 Bilateral knee pain M25.561, M25.562 Ileus K56.7 Abdominal pain R10.9 Partial small bowel obstruction K56.600 History of umbilical hernia repair Z98.890, Z87.19 Intra-abdominal adhesions K66.0 Colon cancer screening Z12.11 Left testicular pain N50.812 Left groin pain R10.32 Left inguinal hernia K40.90 Postop check Z09 Encounter for annual physical exam Z00.00 Complex tear of medial meniscus of left knee S83.232A Right rotator cuff tendinitis M75.81 Epididymitis N45.1 Double vision H53.2 Left inguinal pain R10.32 COVID-19 U07.1 Tear of medial meniscus of right knee S83.241A Tear of medial meniscus of left knee S83.242A Numbness of left foot R20.8 Renal insufficiency, mild N28.9 Medical History Medical History (Updated 12/28/21 @ 12:49 by Black Haley NP) Hx of hearing loss Surgical History Surgical History (Updated 04/11/22 @ 09:32 by Suzy Helm RN) History of colonoscopy History of hernia repair Tobacco Smoking/Tobacco Use Status: Current every day Tobacco Type: smokeless tobacco Smokeless tobacco user: chewing tobacco Passive smoking exposure: Yes Second hand exposure: Yes Alcohol Alcohol Intake: current Alcohol intake frequency: holidays/special occasions only Alcohol type: hard liquor Substance Use Substance use: Never Substance use type: does not use Counseling provided: none Vital Signs and Lab Results Lab Results Blood Type / Crossmatch: No Data to Display Complete Blood Count: No Data to Display Complete Metabolic Panel: No Data to Display Liver Function Panel: No Data to Display Coagulation Panel: No Data to Display Cardiac Panel: No Data to Display Arterial Blood Gas: No Data to Display Venous Blood Gas: No Data to Display Pancreas Panel: No Data to Display Thyroid Panel: No Data to Display Infectious Disease: No Data to Display Blood Cultures: No Data to Display Toxicology Panel: No Data to Display Imaging and Studies Imaging and Studies Study information below may be from another EMR and interpreted by another provider. Please see original notes in EMR for more complete details. Carotid Artery Summary:: IMPRESSION: No evidence for hemodynamically significant carotid stenosis. Anesthesia Assessment and Plan Anesthesia History Personal History: No History of Anesthesia Complications Family History: No Family History of Anesthesia Complications Exercise Tolerance Exercise Tolerance: Metabolic Equivalents>4 Pertinent Negatives Pertinent Negatives: No Symptoms of GERD, No Major Pulmonary Symptoms or Complaints and No History of CVA/TIA Cardiac & Pulmonary Exam Cardiac Exam: Normal S1/S2 Heart Sounds Pulmonary Exam: Clear Bilateral Breath Sounds Implantable Cardiac Device Does patient have a Pacemaker or an ICD?: No Airway Exam Known Difficult Airway: No Mallampati Class: 2 Mouth Opening: Normal (> 3cm) Thyromental Distance: Greater than 3 cm Neck Range of Motion: Full ROM Neck Circumference: Normal Teeth Condition: Normal Dentition ASA Classification ASA Score: ASA 2 Emergency Case?: No NPO Status NPO Status: NPO Clears >2 hours, Solids >8 hours Anesthesia Plan Resuscitation Status: Full Code Anesthesia Technique: General Anesthesia Airway Planned: Endotracheal Tube Monitors Used: Standard Monitors
[2022-04-12] MEDS: Lactated Ringers 1,000 ML 80 ML IV (10:29)
[2022-04-12] MEDS: Gabapentin 300 MG CAP PO (10:30)
[2022-04-12] MEDS: Celecoxib 200 MG CAP 400 MG PO (10:30)
[2022-04-12] MEDS: Acetaminophen 500 MG TAB 1000 MG PO (10:30)
[2022-04-12] MEDS: ceFAZolin 2 GM/50 ML BAG IVPB (12:08)
[2022-04-12] MEDS: Bupivacaine 0.5% Pres-Free 30 ML VIAL (12:33)
[2022-04-12] MEDS: EPINEPHrine 30 MG/30 ML VIAL (12:34)
--- NOTE | 2022-04-12 13:10 | W.PM.OP ---
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 This was confirmed based on MRI and exam findings. Nonoperative measures were exhausted but disability and pain persisted. I discussed knee arthroscopy with meniscal intervention with the patient. I reviewed the risks of the procedure to include, but not limited to, bleeding, infection, pain, stiffness, damage to nerves or vessels, recurrence, blood clot. Despite these risks, the patient elected to proceed. Findings: A diagnostic arthroscopy was performed with the following findings: Suprapatellar Pouch: No significant inflammation, no loose bodies Medial Compartment: Complex medial meniscal tear at the edge of the previous tear resection, intact meniscal root, grade III chondromalacia over the medial femur with fissuring but no loose flaps and grade II chondromalacia of the tibia, no loose bodies Notch: There appeared to be some partial if not high-grade tearing of the ACL. PCL is intact Lateral Compartment: No meniscal tear, intact meniscal root, grade I chondromalacia, no loose bodies Patellofemoral Compartment: No significant chondromalacia, no apparent patellar maltracking Procedure Description: Winston was greeted in the preoperative holding area where the correct side was identified and marked. The consent was reviewed with the patient and signed. The history and physical was updated. All questions were answered. He was taken back to the operating room. The patient was placed into the supine position on the operating room table. All bony prominences were well padded. Prophylactic antibiotics in the form of cefazolin were administered. The left leg was then prepped with Chloraprep and draped in a standard fashion with stockinette and extremity drape. A timeout to confirm correct identity, side and site, procedure, allergies, anesthesia, and medical concerns was performed. The leg was placed into a pneumatic leg giles, [id number]. A standard lateral portal was made at the lateral border of the patella tendon in line with the inferior pole of the patella, soft spot. The skin and deep tissue was incised sharply and the blunt trochar was inserted atraumatically. A diagnostic arthroscopy was performed and the findings are listed above. The suprapatellar pouch had no significant inflammatory change. The patellofemoral articulation showed no articular damage as well as good tracking. The lateral gutter had no loose bodies and the medial gutter had no loose bodies. The knee was brought into some valgus stress in extension to open the medial compartment. A medial portal was made, localized by a spinal needle. The portal was created with an #11 blade through skin and capsule under direct visualization avoiding any meniscal injury. A probe was then inserted into the medial compartment. The medial compartment was fully inspected. The chondral surface of the tibia showed grade II chondromalacia and the surface of the femur showed more extensive grade III chondromalacia with fissuring but no loose flaps. The medial meniscus had a complex tear in the posterior horn adjacent to the previous tear and the previous tear resection. There is also some undersurface fraying and the remainder of the posterior body of the medial meniscus.. After evaluation, the meniscus was debrided down to a stable base using a series of biters and arthroscopic penny. It was probed afterwards to confirm that the tear had been removed and the meniscus was stable. Cartilage surfaces were debrided of any flaps, leaving any intact fibers. The notch was then inspected which showed tearing of ACL and an intact PCL. The ACL had some fraying but still seem to be attached from the tibia to the femur. The leg was then brought into a figure of 4 position. The lateral compartment was fully inspected with the arthroscope and a probe. The chondral surface of the lateral femur showed grade I chondromalacia. The chondral surface of the lateral tibia showed grade I chondromalacia. The lateral meniscus had no meniscal tear. The arthroscope was brought back into the suprapatellar pouch and the leg was in full extension. The knee was thoroughly irrigated with the arthroscopic fluid on high flow and pressure. Inflow was stopped and excess fluid was removed. The wounds were closed with 4-0 Nylon. They were dressed with Xeroform, 4x4 gauze, ABD pad, Kerlix and an AMELIA wrap. A cryo-cuff was applied. The patient tolerated the procedure well and was returned to the Same Day Surgery area in a stable condition suffering no known complication.
[2022-04-12] MEDS: Ketorolac 15 MG/ML VIAL IVP (13:43)
--- NOTE | 2022-04-12 13:52 | W.ANESPOSTOP ---
Postoperative Evaluation Date, Time and Location Date Performed: 04/12/22 Time Performed: 13:52 Patient Location: PACU Vital Signs Most Recent Imported Vital Signs: Most Recent Vital Signs Temp Pulse Resp BP Pulse Ox 36.4 C L 59 L 16 112/91 H 97 04/12/22 13:35 04/12/22 13:35 04/12/22 13:35 04/12/22 13:35 04/12/22 13:35 Pain Score Most Recent Pain Score: Most Recent Pain Score Pain Level 3 04/12/22 13:35 Assessment Mental Status: Awake (Alert & Oriented to Patient Baseline) Airway and Respiratory Function: Patent airway with normal (patient baseline) respiratory exam Cardiovascular Function: Hemodynamically Stable Hydration Status: Adequately Hydrated Nausea & Vomiting: No Nausea or Vomiting Pain: Pain is tolerable per patient Peripheral Nerve Block: Patient did not receive a nerve block
[2022-04-12] MEDS: HYDROcodone 5/Acetaminophen 325 TAB PO (14:17)
== END 2022-04-12 15:30 | disposition home or self-care (01) ==
PROVIDERS: PCP Nurse Practitioner Family; Visit Provider Student in an Organized Health Care Education/Training Program
PROC: (CPT 29870; principal; 2022-04-12 11:45)
DX: M23.232 Derangement of other medial meniscus due to old tear or injury, left knee (principal); M94.262 Chondromalacia, left knee
CPT/HCPCS: 29881; J0690; J1100; J1885; J2250; J2405; J2704; J3010

== ENCOUNTER 2022-05-05 08:50 | Day surgery (SDC) | payer BC, SELFPAY ==
[2022-05-05] VITALS (9 sets, daily range): BP systolic 85–130; BP diastolic 66–92; PULSE 43–62; RESP 13–16; TEMP 35.8–36.3; O2SAT 95–99; BMI 28.6
--- NOTE | 2022-05-05 09:14 | PDOC.DSDIS_ITS ---
Date of service: 05/05/22 Time of Service: 09:24 Discharge Plan Disposition Patient Disposition: Home Condition: Good Discharge Details Reason For Visit: Right knee medial meniscus tear Attending Provider: Lewis Reed Primary Care Provider: Juan José Houser Home Meds and New Rx's Prescriptions: New hydrocodone-acetaminophen 5-325 mg tablet 1 tab PO Q6H PRN (Reason: severe pain) Qty: 6 0RF Rx Instructions: Take one tablet up to every 6 hours as needed for severe postoperative pain ibuprofen 600 mg tablet 600 mg PO TID PRN (Reason: pain) Qty: 60 0RF Continued aspirin 81 mg tablet,delayed release (DR/EC) 81 mg PO DAILY acetaminophen 500 mg tablet 500 mg PO Q6H PRN (Reason: pain) Qty: 60 2RF Discontinued ibuprofen 600 mg tablet 600 mg PO TID PRN (Reason: pain) Qty: 60 0RF Discharge Instructions Stand Alone Forms: [facility] Referrals: Lewis Reed MD [ [facility] STAFF PHYSICIAN] - Equipment/Supplies: Partial Weight Bearing Crutches Activity:: Elevate Remove Dressings/Wound Care:: 72 hours Shower/Bathe:: 72 hours Diet:: As Tolerated Discharge Orders Discharge Orders: Discharge Order (Routine); Ordered 05/05/22 Ordered By: Angelica Guerra
[2022-05-05] MEDS: Acetaminophen 500 MG TAB 1000 MG PO (09:59)
[2022-05-05] MEDS: Celecoxib 200 MG CAP 400 MG PO (09:59)
[2022-05-05] MEDS: Gabapentin 300 MG CAP PO (10:00)
[2022-05-05] MEDS: Lactated Ringers 1,000 ML 80 ML IV (10:20)
--- NOTE | 2022-05-05 10:24 | W.ANESPRE ---
General Info Date of Service Date Performed: 05/05/22 Height: 5 ft 9 in Weight: 88 kg Body Mass Index (BMI): 28.6 Surgical Procedure: Operation Date: 05/05/22 11:25 Proposed Procedure Side Surgeon p Knee Arthroscopy, Partial Medial Menisectomy Right Lewis Reed MD Meds Allergies and Home Medications Allergies Allergy/AdvReac Type Severity Reaction Status Date / Time No Known Allergies Allergy Verified 05/05/22 09:31 Home Medication Medication Instructions Recorded aspirin 81 mg tablet,delayed 81 mg PO DAILY 10/18/20 release acetaminophen 500 mg tablet 500 mg PO Q6H PRN pain #60 tabs 04/12/22 hydrocodone 5 mg-acetaminophen 325 1 tab PO Q6H PRN severe pain #6 05/05/22 mg tablet tabs ibuprofen 600 mg tablet 600 mg PO TID PRN pain #60 tabs 05/05/22 Current Visit Medications: Current Medications Generic Name Dose Route Start Last Admin Trade Name Freq PRN Reason Stop Dose Admin Acetaminophen 1,000 mg 05/05/22 06:00 05/05/22 09:59 Acetaminophen 500 Mg Tab PO 05/05/22 18:00 1,000 mg PREOP PETER Administration Acetaminophen 650 mg 05/05/22 09:13 Acetaminophen 325 Mg Tab PO Q4H PRN PRN Hydrocodone Bitart/Acetaminophen 0 tab 05/05/22 09:13 Hydrocodone 5/Acetaminophen 325 Tab PO Q3H PRN PRN Pain Celecoxib 400 mg 05/05/22 06:00 05/05/22 09:59 Celecoxib 200 Mg Cap PO 05/05/22 18:00 400 mg PREOP PETER Administration Gabapentin 300 mg 05/05/22 06:00 05/05/22 10:00 Gabapentin 300 Mg Cap PO 05/05/22 18:00 300 mg PREOP PETER Administration Ringer's Solution 1,000 mls @ 80 mls/hr 05/05/22 06:00 IV 06/03/22 23:59 INFUSION PETER Cefazolin Sodium/Dextrose 2 gm in 50 mls @ 100 mls/hr 05/05/22 06:00 Ancef Duplex IVPB 06/03/22 23:59 PREOP PETER IV Miscellaneous Supplies 1 each 05/05/22 06:00 Iv Access IV 06/03/22 23:59 DIRECTED PETER Sodium Chloride 0 ml 05/05/22 06:00 Normal Saline Flush 10 Ml Syr IV 06/03/22 23:59 PRN PRN Sodium Chloride 0 ml 05/05/22 06:00 Normal Saline 10 Ml Vial IJ 06/03/22 23:59 DIRECTED PRN Sterile Water 0 ml 05/05/22 06:00 Water,Injection,Sterile 10 Ml Vial IJ 06/03/22 23:59 DIRECTED PRN PFSH Active Problems Active Problems: Problem Status Onset Code Tendinitis of left rotator cuff 06/21/16 M75.82 Sleep disorder 08/06/17 G47.9 Situational anxiety 08/06/17 F41.8 Non-celiac gluten sensitivity 06/22/15 K90.41 Left anterior fascicular block (LAFB) 08/06/17 I44.4 Gastroesophageal reflux disease without esophagitis 08/06/17 K21.9 Bursitis of right shoulder M75.51 Patellofemoral arthralgia of both knees M22.2X1, M22.2X2 Pes planus of both feet M21.41, M21.42 Non-celiac gluten sensitivity 06/22/15 K90.41 Glenoid labrum tear 06/21/16 S43.439A Paresthesia R20.2 Left knee pain M25.562 Bilateral knee pain M25.561, M25.562 Ileus K56.7 Abdominal pain R10.9 Partial small bowel obstruction K56.600 History of umbilical hernia repair Z98.890, Z87.19 Intra-abdominal adhesions K66.0 Colon cancer screening Z12.11 Left testicular pain N50.812 Left groin pain R10.32 Left inguinal hernia K40.90 Postop check Z09 Encounter for annual physical exam Z00.00 Complex tear of medial meniscus of left knee S83.232A Right rotator cuff tendinitis M75.81 Epididymitis N45.1 Double vision H53.2 Left inguinal pain R10.32 COVID-19 U07.1 Tear of medial meniscus of right knee S83.241A Tear of medial meniscus of left knee S83.242A Numbness of left foot R20.8 Renal insufficiency, mild N28.9 Medical History Medical History Hx of hearing loss Surgical History Surgical History History of arthroscopic knee surgery left knee History of colonoscopy History of hernia repair Tobacco Smoking/Tobacco Use Status: Current every day Tobacco Type: smokeless tobacco Smokeless tobacco user: chewing tobacco Passive smoking exposure: Yes Second hand exposure: Yes Alcohol Alcohol Intake: current Alcohol intake frequency: holidays/special occasions only Alcohol type: hard liquor Substance Use Substance use: Never Substance use type: does not use Counseling provided: none Details: alcohol: months Vital Signs and Lab Results Vital Signs Most Recent Vital Signs in EMR: Most Recent Vital Signs Temp Pulse Resp BP Pulse Ox 36.2 C L 62 16 130/92 H 97 05/05/22 09:40 05/05/22 09:40 05/05/22 09:40 05/05/22 09:40 05/05/22 09:40 Lab Results Blood Type / Crossmatch: No Data to Display Complete Blood Count: No Data to Display Complete Metabolic Panel: No Data to Display Liver Function Panel: No Data to Display Coagulation Panel: No Data to Display Cardiac Panel: No Data to Display Arterial Blood Gas: No Data to Display Venous Blood Gas: No Data to Display Pancreas Panel: No Data to Display Thyroid Panel: No Data to Display Infectious Disease: No Data to Display Blood Cultures: No Data to Display Toxicology Panel: No Data to Display Imaging and Studies Imaging and Studies Study information below may be from another EMR and interpreted by another provider. Please see original notes in EMR for more complete details. Carotid Artery Summary:: IMPRESSION: No evidence for hemodynamically significant carotid stenosis. Anesthesia Assessment and Plan Anesthesia History Personal History: No History of Anesthesia Complications Family History: No Family History of Anesthesia Complications Exercise Tolerance Exercise Tolerance: Metabolic Equivalents>4 Pertinent Negatives Pertinent Negatives: No Symptoms of GERD Cardiac & Pulmonary Exam Cardiac Exam: Normal S1/S2 Heart Sounds Pulmonary Exam: Clear Bilateral Breath Sounds Implantable Cardiac Device Does patient have a Pacemaker or an ICD?: No Airway Exam Known Difficult Airway: No Mallampati Class: 2 Mouth Opening: Normal (> 3cm) Thyromental Distance: Greater than 3 cm Neck Range of Motion: Full ROM Neck Circumference: Normal Teeth Condition: Normal Dentition ASA Classification ASA Score: ASA 2 Emergency Case?: No NPO Status NPO Status: NPO Clears >2 hours, Solids >8 hours Anesthesia Plan Resuscitation Status: Full Code Anesthesia Technique: General Anesthesia Airway Planned: LMA Monitors Used: Standard Monitors
[2022-05-05] MEDS: ceFAZolin 2 GM/50 ML BAG IVPB (11:30)
[2022-05-05] MEDS: methylPREDNISolone ACETATE 80 MG/ML VIAL (11:47)
[2022-05-05] MEDS: EPINEPHrine 30 MG/30 ML VIAL (11:49)
[2022-05-05] MEDS: Bupivacaine 0.5% Pres-Free 30 ML VIAL (11:49)
--- NOTE | 2022-05-05 15:11 | W.ANESPOSTOP ---
Postoperative Evaluation Date, Time and Location Date Performed: 05/05/22 Time Performed: 15:11 Patient Location: Day Surgery Unit Vital Signs Most Recent Imported Vital Signs: Most Recent Vital Signs Temp Pulse Resp BP Pulse Ox 35.8 C L 46 L 16 122/90 99 05/05/22 14:01 05/05/22 14:01 05/05/22 14:01 05/05/22 14:01 05/05/22 14:01 Pain Score Most Recent Pain Score: Most Recent Pain Score Pain Level 5 05/05/22 14:01 Assessment Mental Status: Awake (Alert & Oriented to Patient Baseline) Airway and Respiratory Function: Patent airway with normal (patient baseline) respiratory exam Cardiovascular Function: Hemodynamically Stable Hydration Status: Adequately Hydrated Nausea & Vomiting: No Nausea or Vomiting Pain: Pain is tolerable per patient Peripheral Nerve Block: Patient did not receive a nerve block
--- NOTE | 2022-05-05 16:11 | W.PM.OP ---
Date of service: 05/05/22 Time of Service: 12:30 Operative Note Operative Note DATE OF PROCEDURE: 05/05/22 PRE-OP DIAGNOSIS: Left Knee Chondromalacia, Right Knee Medial Meniscus Tear POST-OP DIAGNOSIS: same Right Knee Chondromalacia PROCEDURE: Right Knee Arthroscopic Partial Medial Menisectomy and Left Knee Injection SURGEON: Lewis Reed ANESTHESIA TYPE: General LMA/ETT Refer to Anesthesia Record ESTIMATED BLOOD LOSS: 0 PATHOLOGY: none sent COMPLICATIONS: None Patient was transported to: PACU Patient's condition: stable Indications: I have seen Winston in clinic for symptoms of a meniscus tear. This was confirmed based on MRI and exam findings. Nonoperative measures were exhausted but disability and pain persisted. I discussed knee arthroscopy with meniscal intervention with the patient. I reviewed the risks of the procedure to include, but not limited to, bleeding, infection, pain, stiffness, damage to nerves or vessels, recurrence, blood clot. Despite these risks, the patient elected to proceed. Findings: A diagnostic arthroscopy was performed with the following findings: Suprapatellar Pouch: No significant inflammation, No loose bodies Medial Compartment: Complex medial meniscal tear, Intact meniscal root, Grade II chondromalacia of the femur and tibia, No loose bodies Notch: ACL and PCL were intact Lateral Compartment: No meniscal tear, Intact meniscal root, No significant chondromalacia or signs of arthritis, No loose bodies Patellofemoral Compartment: No significant chondromalacia, No apparent patellar maltracking Procedure Description: Winston was greeted in the preoperative holding area where the correct side was identified and marked. The consent was reviewed with the patient and signed. The history and physical was updated. All questions were answered. Winston was taken back to the operating room. The patient was placed into the supine position on the operating room table. All bony prominences were well padded. Prophylactic antibiotics in the form of Cefazolin were administered. A timeout to confirm correct identity, side and site, procedure, allergies, anesthesia, and medical concerns was performed. An intra-articular injection was then administered to the left knee. The suprapatellar access point to the knee was identified and marked. The skin was prepped with alcohol. I then injected 5 cc of 0.5% bupivacaine along with 80 mg of Depo-Medrol. This flowed easily. The right leg was then prepped with Chloraprep and draped in a standard fashion with stockinette and extremity drape. The leg was placed into a pneumatic leg giles, SPIDER2. A standard lateral portal was made at the lateral border of the patella tendon in line with the inferior pole of the patella, soft spot. The skin and deep tissue was incised sharply and the blunt trochar was inserted atraumatically. A diagnostic arthroscopy was performed and the findings are listed above. The suprapatellar pouch had no significant inflammatory change. The patellofemoral articulation showed no articular damage as well as good tracking. The lateral gutter had no loose bodies and the medial gutter had no loose bodies. The knee was brought into some valgus stress in extension to open the medial compartment. A medial portal was made, localized by a spinal needle. The portal was created with an #11 blade through skin and capsule under direct visualization avoiding any meniscal injury. A probe was then inserted into the medial compartment. The medial compartment was fully inspected. The chondral surface of the tibia showed Grade II chondromalacia and the surface of the femur showed the same over the distal femur. The medial meniscus had a complex tear at the root, which was a partial tear not involving the full attachment to the posterior tibia. There was also a complex tear in the posterior horn. The meniscal tissue of the medial meniscus surrounding the tears was degenerative with a friable, yellow tissue appearance. After complete evaluation, the meniscus was debrided down to a stable base using a series of biters and arthroscopic penny. It was probed afterwards to confirm that the tear had been removed and the meniscus was stable. The notch was then inspected which showed an intact ACL and an intact PCL. The leg was then brought into a figure of 4 position. The lateral compartment was fully inspected with the arthroscope and a probe. The chondral surface of the lateral femur showed no significant chondromalacia. The chondral surface of the lateral tibia showed no significant chondromalacia. The lateral meniscus had no meniscal tear. The arthroscope was brought back into the suprapatellar pouch and the leg was in full extension. The knee was thoroughly irrigated with the arthroscopic fluid on high flow and pressure. Inflow was stopped and excess fluid was removed. The wounds were closed with 4-0 Nylon. They were dressed with Xeroform, 4x4 gauze, ABD pad, Kerlix and an AMELIA wrap. A cryo-cuff was applied. The patient tolerated the procedure well and was returned to the [facility] Day Surgery area in a stable condition suffering no known complication.
== END 2022-05-05 15:27 | disposition home or self-care (01) ==
PROVIDERS: PCP Nurse Practitioner Family; Visit Provider Student in an Organized Health Care Education/Training Program
PROC: (CPT 29870; principal; 2022-05-05 11:15)
DX: S83.241A Other tear of medial meniscus, current injury, right knee, initial encounter (principal); M94.262 Chondromalacia, left knee; X58.XXXA Exposure to other specified factors, initial encounter
CPT/HCPCS: 29881; 20610; J0690; J1040; J1100; J1885; J2405

== ENCOUNTER 2022-06-28 13:33 | Emergency (ER) | payer BC, SELFPAY ==
[2022-06-28] VITALS (13 sets, daily range): BP systolic 122–169; BP diastolic 88–99; PULSE 58–78; RESP 15–19; TEMP 37; O2SAT 94–100
--- NOTE | 2022-06-28 14:00 | DI.CT_ITS ---
Exam(s) CT ABDOMEN PELVIS W EXAM: CT ABDOMEN PELVIS W CLINICAL HISTORY: mid lower abd pain, concerns for mesh migration TECHNIQUE: Imaging Protocol: Axial computed tomography images with coronal and sagittal reformatted images were created and reviewed CONTRAST MATERIAL: Intravenous: Omnipaque 350 Contrast volume:100 mL Oral: No COMPARISON: CT CT ABDOMEN PELVIS W from 01/03/2020 FINDINGS: ABDOMEN: Lung Bases: Normal where visualized. Liver: There is diffuse decreased attenuation of the liver consistent with fatty infiltration. The l iver measures 18.3 cm long. No measurable mass. Portal, Superior Mesenteric, and Splenic Veins: Unremarkable. Gallbladder and Biliary Tract: No radiodense calculus or dilation. Pancreas: Normal density, no abnormal calcifications or inflammatory process. Spleen: Normal. Adrenals: No masses seen. Kidneys: Normal size, contour and axis. No radiodense stones or obstructive uropathy. No masses seen. Abdominal Aorta: Abdominal portion non-dilated. Mild atherosclerosis. Bowel: No obstruction or bowel wall thickening. Appendix is unremarkable. Peritoneal Cavity: No ascites, collection or mesenteric inflammatory response. No free air. Lymph Nodes: Within normal limits. Bones: Within normal limits for the patient's age. Soft Tissues: Unremarkable. PELVIS: Bladder: Symmetric distention, no gross wall thickening. Reproductive Organs: The prostate gland is enlarged and impinges upon the base of the urinary bladder . Lymph Nodes: Within normal limits. Bones: Within normal limits for the patient's age. IMPRESSION: 1. No acute abdominal or pelvic process. 2. Findings were discussed with Dr. Song at 4:02 p.m. on 06/28/2022. RADIATION DOSE DELIVERED: 839.57mGy.cm Total DLP DATA REPOSITORY: All CT scans at this facility are submitted to the National Radiology Data Registry (NRDR) Dose Index Registry (DIR) with the [employer] (A[employer]). RADIATION OPTIMIZATION: All CT scans at this facility use at least one of these dose optimization te chniques: automated exposure control; mA and/or kV adjustment per patient size (includes targeted exa ms where dose is matched to clinical indication); or iterative reconstruction.
[2022-06-28 14:27] LABS: Abs Immature Grans 0.08 10^3/uL (0.0-0.06); Absolute Basophil Count 0.06 10^3/uL (0.0-0.2); Absolute Lymphocyte Count 2.09 10^3/uL (1.2-3.4); Absolute Monocyte Count 0.62 10^3/uL (0.1-0.8); Absolute Neutrophil Count 6.36 10^3/uL (1.2-6.7); Basophils % 0.6; Eosinophils % 1.1; HCT 49.7 % (40.0-50.0); HGB 16.7 g/dL (13.5-17.5); Immature Grans % 0.9; Lymphocytes % 22.4; MCH 29.9 pg (27.0-33.0); MCHC 33.6 % (32.0-36.0); MCV 89 fL (80-95); MPV 10.4 fL (8.0-11.0); Monocytes % 6.7; Neutrophils % 68.3; Platelet Count 171 10^3/uL (130-400); RBC 5.58 10^6/uL (4.36-5.78); RDW 12.5 % (11.8-14.1); RDW-SD 41.1 fL; WBC 9.31 10^3/uL (4.4-10.8)
[2022-06-28 14:46] LABS: ALT 65 U/L (16-63); AST 21 U/L (15-37); Albumin 4.4 g/dL (3.4-5.0); Alkaline Phosphatase 79 U/L (46-116); Anion Gap 6.9 mmol/L (3-11); BUN 14 mg/dL (7-18); Bilirubin, Total 0.7 mg/dL (0.2-1.0); CO2 29.1 mmol/L (21.0-32.0); CREATININE 1.6 mg/dL (0.70-1.30); Calcium 9.3 mg/dL (8.5-10.1); Chloride 106 mmol/L (98-107); Estimated GFR 50.57 (mL/min/1.73m2); Glucose 95 mg/dL (74-106); Lipase 60 U/L (16-77); Magnesium 2.1 mg/dL (1.8-2.4); Potassium 4.2 mmol/L (3.5-5.1); Sodium 142 mmol/L (136-145); Total Protein 7.1 g/dL (6.4-8.2); Troponin I < 50 ng/L (<or=60)
[2022-06-28] MEDS: Normal Saline - Diluent 50 ML VIAL IJ (15:29)
[2022-06-28] MEDS: Omnipaque 350 MG/ML 100 ML BTL IJ (15:30)
--- NOTE | 2022-06-28 15:59 | ED.GENADUL_ITS ---
Discharge Plan Disposition Patient Disposition: Home Condition: Stable Discharge Details Clinical Impression: Abdominal pain Primary Care Provider: Juan José Houser ED Provider: Mukesh Song Home Meds and New Rx's Prescriptions: Continued aspirin 81 mg tablet,delayed release (DR/EC) 81 mg PO DAILY acetaminophen 500 mg tablet 500 mg PO Q6H PRN (Reason: pain) Qty: 60 2RF ibuprofen 600 mg tablet 600 mg PO TID PRN (Reason: pain) Qty: 60 0RF Discharge Instructions Instructions: Abdominal Pain (ED) Additional Instructions: Allow for bowel rest over the next few days. Maintain a clear liquid diet today. Advance her diet to bland foods tomorrow as tolerated. Please contact your primary care physician to arrange follow-up. Return to the ER immediately for any worsening or new concerning symptoms. Referrals: Juan José Houser, STATION EXAMINER [Primary Care Provider] - Medical Decision Making 56-year-old male with history of hernia repair remotely, here with lower abdominal pain over the past 1 week worse postprandially. Patient sent by urgent care with concern for obstruction. Patient has tenderness lower abdomen with no other peritoneal findings. No tenderness right upper quadrant. CT of the abdomen pelvis was obtained to assess for acute surgical pathology including bowel obstruction. CT was interpreted by radiology, Dr. Silva, notes no acute findings. No signs of mesh migration. Labs reviewed and no leukocytosis. Normal LFTs. Creatinine is elevated at 1.6. All results were discussed with the patient. Patient was encouraged to follow- up with his primary care physician. Lab Data Lab results reviewed: Yes I reviewed the patient's lab results. Labs: Laboratory Tests Range/Units 06/28/22 06/28/22 14:15 14:15 WBC (4.4-10.8) 10^3/uL 9.31 RBC (4.36-5.78) 10^6/uL 5.58 Hgb (13.5-17.5) g/dL 16.7 Hct (40.0-50.0) % 49.7 MCV (80-95) fL 89 MCH (27.0-33.0) pg 29.9 MCHC (32.0-36.0) % 33.6 RDW (11.8-14.1) % 12.5 Plt Count (130-400) 10^3/uL 171 MPV (8.0-11.0) fL 10.4 Immature Gran % 0.9 Neutrophils % 68.3 Lymphocytes % 22.4 Monocytes % 6.7 Eosinophils % 1.1 Basophils % 0.6 Nucleated RBC % (0.0-0.3) % 0.0 Absolute Neutrophils (1.2-6.7) 10^3/uL 6.36 Absolute Lymphocytes (1.2-3.4) 10^3/uL 2.09 Absolute Monocytes (0.1-0.8) 10^3/uL 0.62 Absolute Eosinophils (0.0-0.7) 10^3/uL 0.10 Absolute Basophils (0.0-0.2) 10^3/uL 0.06 Sodium (136-145) mmol/L 142 Potassium (3.5-5.1) mmol/L 4.2 Chloride (98-107) mmol/L 106 Carbon Dioxide (21.0-32.0) mmol/L 29.1 Anion Gap (3-11) mmol/L 6.9 BUN (7-18) mg/dL 14 Creatinine (0.70-1.30) mg/dL 1.6 H Est GFR (CKD-EPI 2020) (mL/min/1.73m2) 50.57 Glucose (74-106) mg/dL 95 Calcium (8.5-10.1) mg/dL 9.3 Magnesium (1.8-2.4) mg/dL 2.1 Total Bilirubin (0.2-1.0) mg/dL 0.7 AST (15-37) U/L 21 ALT (16-63) U/L 65 H Alkaline Phosphatase (46-116) U/L 79 Troponin I (<or=60) ng/L < 50 Total Protein (6.4-8.2) g/dL 7.1 Albumin (3.4-5.0) g/dL 4.4 Lipase (16-77) U/L 60 HPI General Mode of arrival: ambulatory . Date/Time Provider Initiated Documentation: 06/28/22 14:03 . Limitations to Documentation: no limitations . Information obtained by: patient . HPI Narrative: 56-year-old male with history of umbilical hernia status post mesh repair remotely here with chief complaint of abdominal pain. Patient notes he has had moderate abdominal pain over the past week. Pain localized to the lower abdomen. Pain is worse after eating. He is concerned that he has an intestinal blockage related to his hernia mesh. No vomiting. Related Data Home Medications Medication Instructions Recorded Confirmed aspirin 81 mg tablet,delayed 81 mg PO DAILY 10/18/20 06/28/22 release acetaminophen 500 mg tablet 500 mg PO Q6H PRN pain #60 tabs 04/12/22 06/28/22 ibuprofen 600 mg tablet 600 mg PO TID PRN pain #60 tabs 05/05/22 06/28/22 Previous Rx's Medication Instructions Recorded acetaminophen 500 mg tablet 500 mg PO Q6H PRN pain #60 tabs 04/12/22 ibuprofen 600 mg tablet 600 mg PO TID PRN pain #60 tabs 05/05/22 Allergies Allergy/AdvReac Type Severity Reaction Status Date / Time No Known Allergies Allergy Verified 06/28/22 13:53 General Stated Complaint: Abd Prob MELISSA: 3 Review of Systems All systems reviewed & are unremarkable except as noted in HPI and below Constitutional Constitutional: Denies fever(s) Gastrointestinal Gastrointestinal: Reports abdominal pain and Denies vomiting PFSH All Active Problems (Updated 06/28/22 @ 16:07 by Mukesh Song MD) Tendinitis of left rotator cuff (Chronic 06/21/16) Sleep disorder (Chronic 08/06/17) 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 early manifestation of MS Left knee pain (Acute) ? mensical degenerative tear Bilateral knee pain (Acute) Ileus (Acute) Abdominal pain (Acute) Partial small bowel obstruction (Acute) History of umbilical hernia repair (Acute) Done laparoscopically with [place] [address] Roy Intra-abdominal adhesions (Acute) Colon cancer screening (Acute) Left testicular pain (Acute) Left groin pain (Acute) Left inguinal hernia (Acute) Postop check (Acute) Encounter for annual physical exam (Acute) Complex tear of medial meniscus of left knee (Acute) s/p left knee arthroscopy DOS: 07/27/2020 Right rotator cuff tendinitis (Acute) Epididymitis (Acute) Double vision (Acute) Left inguinal pain (Acute) COVID-19 (Acute) Tear of medial meniscus of right knee (Acute) Tear of medial meniscus of left knee (Acute) S/P arthroscopy: 04/12/2022 Numbness of left foot (Acute) Renal insufficiency, mild (Acute) Lower abdominal pain (Acute) Palpitations (Acute) Abdominal pain (Acute) Medical History Hx of hearing loss Surgical History History of arthroscopic knee surgery left knee History of colonoscopy History of hernia repair Family History Mother , 63 Depression Lung cancer Father , 69 Essential hypertension Cerebral ischemia Neoplasm ? PANCREATIC Pancreatic cancer ??? Sister No problems noted. Maternal Grandmother , 101 No problems noted. Son No problems noted. Daughter No problems noted. Paternal Family history Heart disease Myocardial infarction Maternal Grandfather No problems noted. Maternal Grandfather No problems noted. Paternal Grandmother No problems noted. Social History Smoking/Tobacco Use Status: Current every day Tobacco Type: smokeless tobacco Tobacco: How many years used: 35 Smokeless tobacco user: chewing tobacco Quit status: not considering quitting Second Hand Exposure: Yes Smoking risk assessment performed?: Yes Alcohol Intake: current Alcohol Intake frequency: holidays/special occasions only Alcohol type: hard liquor Drug use: Never Substance use type: does not use Counseling given: No Counseling provided: none Details: alcohol: months Household members: spouse and children Housing: house Do you need help understanding health information?: Never Pets and animals: Yes Pets and animals: cat(s) and dog(s) Sexually active: Yes Do you think of yourself as: straight/heterosexual Current gender identity: male What is your relationship status?: How often do you talk on the phone with friends or family?: three or more times per week How often do you get together with friends or relatives?: once per week How often do you attend jewish or synagogue services?: decline to answer Do you belong to any clubs or organized social groups?: no Panel score (0-1 are the most socially isolated patients): 2 What type of physical activity do you participate in: decline to answer Duration: decline to answer Frequency: decline to answer Elisa/Mu-Ism: No preference Special elisa needs: No Seatbelt use: always Helmet use: Yes Helmet use: always Drive intox or ride w/intox fleet driver: No Do you feel safe at home: Yes Do you feel safe in your relationship?: Yes Additional Social history: unable to assess privately Exam Const General: cooperative and no acute distress HENMT Mouth: moist mucous membranes Eyes Conjunctivae: normal conjunctivae Sclera: normal sclerae Resp Auscultation: clear to auscultation bilaterally, no rales, no rhonchi and no wheezes Cardio Rate: regular rate and not tachycardic Rhythm: regular rhythm GI Palpation: soft, not firm, no guarding, no masses, not rigid and tender in the LLQ and in the RLQ; not in the RUQ Skin General skin exam: no rashes or lesions noted Neuro General: patient alert, patient awake and tone normal Course Vital Signs Vital signs: Vital Signs Pulse 78 06/28/22 13:51 Respiratory Rate 17 06/28/22 13:51 Blood Pressure 169/99 H 06/28/22 13:51 Pulse Oximetry 99 06/28/22 13:51 Pulse 59 L 06/28/22 15:16 Pulse 61 06/28/22 15:16 Respiratory Rate 18 06/28/22 15:16 Respiratory Effort Normal 06/28/22 14:07 Blood Pressure 122/93 H 06/28/22 15:16 Blood Pressure Mean 100 06/28/22 15:16 Blood Pressure Position Sitting 06/28/22 13:51 Pulse Oximetry 97 06/28/22 15:16 Oxygen Delivery Method Room Air 06/28/22 13:51 Oxygen Flow Rate 0 06/28/22 13:51 Pain Level 3 06/28/22 13:51 Lab/Test Results Lab/Test Results: Laboratory Tests Range/Units 06/28/22 06/28/22 14:15 14:15 WBC (4.4-10.8) 10^3/uL 9.31 RBC (4.36-5.78) 10^6/uL 5.58 Hgb (13.5-17.5) g/dL 16.7 Hct (40.0-50.0) % 49.7 MCV (80-95) fL 89 MCH (27.0-33.0) pg 29.9 MCHC (32.0-36.0) % 33.6 RDW (11.8-14.1) % 12.5 Plt Count (130-400) 10^3/uL 171 MPV (8.0-11.0) fL 10.4 Immature Gran % 0.9 Neutrophils % 68.3 Lymphocytes % 22.4 Monocytes % 6.7 Eosinophils % 1.1 Basophils % 0.6 Nucleated RBC % (0.0-0.3) % 0.0 Absolute Neutrophils (1.2-6.7) 10^3/uL 6.36 Absolute Lymphocytes (1.2-3.4) 10^3/uL 2.09 Absolute Monocytes (0.1-0.8) 10^3/uL 0.62 Absolute Eosinophils (0.0-0.7) 10^3/uL 0.10 Absolute Basophils (0.0-0.2) 10^3/uL 0.06 Sodium (136-145) mmol/L 142 Potassium (3.5-5.1) mmol/L 4.2 Chloride (98-107) mmol/L 106 Carbon Dioxide (21.0-32.0) mmol/L 29.1 Anion Gap (3-11) mmol/L 6.9 BUN (7-18) mg/dL 14 Creatinine (0.70-1.30) mg/dL 1.6 H Est GFR (CKD-EPI 2020) (mL/min/1.73m2) 50.57 Glucose (74-106) mg/dL 95 Calcium (8.5-10.1) mg/dL 9.3 Magnesium (1.8-2.4) mg/dL 2.1 Total Bilirubin (0.2-1.0) mg/dL 0.7 AST (15-37) U/L 21 ALT (16-63) U/L 65 H Alkaline Phosphatase (46-116) U/L 79 Troponin I (<or=60) ng/L < 50 Total Protein (6.4-8.2) g/dL 7.1 Albumin (3.4-5.0) g/dL 4.4 Lipase (16-77) U/L 60
== END 2022-06-28 16:23 | disposition home or self-care (01) ==
PROVIDERS: Emergency Provider Student in an Organized Health Care Education/Training Program; PCP Nurse Practitioner Family
DX: R10.31 Right lower quadrant pain (principal); R10.813 Right lower quadrant abdominal tenderness
CPT/HCPCS: 80053; 83690; 99285; 74177; 83735; 84484; 85025; 99284; J3490

== ENCOUNTER 2022-08-02 10:20 | Outpatient (CLI) | payer BC, SELFPAY ==
--- NOTE | 2022-08-02 08:00 | DI.RAD_ITS ---
Exam(s) XR KNEE LT 2V AP,LAT XR KNEE RT 2V AP,LAT XR STANDING ALIGNMENT EXAM: XR KNEE RT 2V AP,LAT and XR standing alignment and XR knee LT 2 V CLINICAL HISTORY: right knee pain. TECHNIQUE: 2D digital imaging was performed. Eight images were obtained. COMPARISON: CR XR KNEE RT 4V AP,LAT,STEVE,PAT from 10/17/2021 CR XR KNEE LT 4V AP,LAT,STEVE,PAT from 10/17/2021 FINDINGS: BONES: The hips are well maintained. In the right, knee there is mild narrowing of the medial femora l tibial joint space. There is mild spurring of the posterior patella. There is a small joint effus ion. In the left knee, there is mild narrowing of the medial femoral tibial joint space. There is m ild spurring of the posterior patella. There is a tiny joint effusion present. The ankles are well maintained.There is no significant leg length discrepancy. SOFT TISSUE: Normal. IMPRESSION: Osteoarthritis of the knees bilaterally. DATA REPOSITORY: RADIATION DOSE DELIVERED:
== END 2022-08-02 10:21 | disposition home or self-care (01) ==
LOC: DIORS 10:21
PROVIDERS: PCP Nurse Practitioner Family; Referring Provider Nurse Practitioner Family; Visit Provider Student in an Organized Health Care Education/Training Program
DX: M25.561 Pain in right knee (principal); M25.562 Pain in left knee; M25.461 Effusion, right knee; M25.462 Effusion, left knee; M17.0 Bilateral primary osteoarthritis of knee
CPT/HCPCS: 73560; 77073

== ENCOUNTER 2022-12-07 03:34 | Emergency (ER) | payer OTHER, SELFPAY ==
[2022-12-07 03:35] VITALS: BP 151/104; PULSE 86; RESP 29; O2SAT 99
[2022-12-07 03:37] VITALS: O2SAT 97
[2022-12-07 03:38] VITALS: BP 151/104; PULSE 77; O2SAT 100
--- NOTE | 2022-12-07 03:50 | W.ED.GENAD ---
Discharge Plan Disposition Patient Disposition: Critical Access Hospital Specific Critical Access Facility: [facility] Discharge Details Clinical Impression: Acute flank pain, Kidney stone Primary Care Provider: Juan José Houser ED Provider: Prashanth Maharaj Home Meds and New Rx's Prescriptions: No Action aspirin 81 mg tablet,delayed release (DR/EC) 81 mg PO DAILY omeprazole 20 mg capsule,delayed release(DR/EC) 20 mg PO DAILY Qty: 90 3RF acetaminophen 500 mg tablet 500 mg PO Q6H PRN (Reason: pain) Qty: 60 2RF ibuprofen 600 mg tablet 600 mg PO TID PRN (Reason: pain) Qty: 60 0RF Discharge Instructions Instructions: Flank Pain (ED) Additional Instructions: You were seen in the emergency department for left-sided flank and back pain. Your labs here were mostly unremarkable but you did have a small acute kidney injury which is likely due to dehydration and the kidney stone. Will need to follow-up with your primary care doctor about this finding. Your pain did not improve here. I suspect that you do have a kidney stone. I gave you multiple doses of medications to treat your pain but given the lack of improvement we decided he likely needs a CAT scan to look for more serious causes of your pain. Our CAT scanner is not working and we called [facility] who is expecting you. Drive straight to their emergency department at [facility], [address], [place] [address]. Return here if you have other concerns. Medical Decision Making 56-year-old gentleman presents with left flank pain. Based off exam and history likely to represent kidney stone. Passed them spontaneously in the past. Will defer CT imaging at this time. No abdominal tenderness to suggest intra-abdominal abscess and no role for CT imaging of the abdomen at this time additionally. We will give some IV fluids and analgesia to treat suspected kidney stones. We will get broad labs look for electrolyte or metabolic derangements that could be contributing to his symptoms or to look for any signs of acute kidney injury. We will check a urinalysis to look for signs of infection and also to look for some microscopic hematuria to further suggest the diagnosis of kidney stones. Doubt other causes of the patient's symptoms at this time. Will await initial testing and response to therapy and reevaluate. 0615 Labs consistent with a kidney stone. Has a mild acute kidney injury and some microscopic hematuria consistent with the diagnosis. Mild left-sided hydronephrosis seen on bedside ultrasound. Aorta is within normal limits on bedside ultrasound. He did not have any improvement in his pain. I told him we do not have a CAT scan or an that would be the next best step. He says he would like to try and get this test done. Spoke to Dr. Paiz at [facility] who said that patient could come down for the test. Patient wanted to go by private vehicle. Will discharge with plan to go to [facility] for CT scan to look for other causes or complications from kidney stone. Medical Records Medical records reviewed: Yes I reviewed the patient's medical records. Lab Data Lab results reviewed: Yes I reviewed the patient's lab results. Lab results narrative: Mild acute kidney injury. Very mild anion gap acidosis. Does have microscopic hematuria. HPI General Date/Time Provider Initiated Documentation: 12/07/22 03:41. Limitations to Documentation: no limitations. Information obtained by: patient. HPI Narrative: 56-year-old gentleman presents with left flank pain. Started acutely approximately 4 hours prior to arrival. He describes it as sharp and radiating down his flank and into his groin and even to the tip of his penis. No pain with urination. No urinary frequency or urgency. No fevers or chills. Has some nausea but no vomiting. Has had kidney stones in the past but has never had any interventions and all of his stones have always resolved spontaneously and passed on their own. No abdominal pain. Denies any other complaints. Related Data Home Medications Medication Instructions Recorded Confirmed aspirin 81 mg tablet,delayed 81 mg PO DAILY 10/18/20 12/07/22 release acetaminophen 500 mg tablet 500 mg PO Q6H PRN pain #60 tabs 04/12/22 12/07/22 ibuprofen 600 mg tablet 600 mg PO TID PRN pain #60 tabs 05/05/22 12/07/22 omeprazole 20 mg capsule,delayed 20 mg PO DAILY #90 caps 07/03/22 12/07/22 release Previous Rx's Medication Instructions Recorded acetaminophen 500 mg tablet 500 mg PO Q6H PRN pain #60 tabs 04/12/22 ibuprofen 600 mg tablet 600 mg PO TID PRN pain #60 tabs 05/05/22 omeprazole 20 mg capsule,delayed 20 mg PO DAILY #90 caps 07/03/22 release Allergies Allergy/AdvReac Type Severity Reaction Status Date / Time No Known Allergies Allergy Verified 12/07/22 03:35 General Stated Complaint: FlankPain MELISSA: 3 Review of Systems Constitutional Constitutional: Denies chills, Denies fever(s) and Denies headache(s) Eyes Eyes: Denies change in vision ENT Ears, Nose, Mouth, and Throat: Denies headache(s) and Denies odynophagia Cardiovascular Cardiovascular: Denies chest pain and Denies dyspnea Respiratory Respiratory: Denies dyspnea Gastrointestinal Gastrointestinal: Denies abdominal pain, Denies diarrhea, Reports nausea, Denies odynophagia and Denies vomiting Genitourinary Genitourinary: Denies dysuria and Reports other (left flank pain) Musculoskeletal Musculoskeletal: Denies myalgias Integumentary/Breasts Skin/Breast: Denies changing lesions Neurologic Neurologic: Denies behavioral changes and Denies headache(s) Psychiatric Psychiatric: Denies behavioral changes Endocrine Endocrine: Denies heat intolerance Hematologic/Lymphatic Hematologic/Lymphatic: Denies lymphadenopathy PFSH All Active Problems (Updated 12/07/22 @ 06:13 by Prashanth Maharaj MD) Tendinitis of left rotator cuff (Chronic 06/21/16) Sleep disorder (Chronic 08/06/17) 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 early manifestation of MS Left knee pain (Acute) ? mensical degenerative tear Bilateral knee pain (Acute) Ileus (Acute) Abdominal pain (Acute) Partial small bowel obstruction (Acute) History of umbilical hernia repair (Acute) Done laparoscopically with [place] [address] Roy Intra-abdominal adhesions (Acute) Colon cancer screening (Acute) Left testicular pain (Acute) Left groin pain (Acute) Left inguinal hernia (Acute) Postop check (Acute) Encounter for annual physical exam (Acute) Right rotator cuff tendinitis (Acute) Epididymitis (Acute) Double vision (Acute) Left inguinal pain (Acute) COVID-19 (Acute) Numbness of left foot (Acute) Renal insufficiency, mild (Acute) Lower abdominal pain (Acute) Palpitations (Acute) Arthritis of knee, left (Acute) Arthritis of knee, right (Acute) Acute flank pain (Acute) Kidney stone (Chronic) Medical History Hx of hearing loss Surgical History Complex tear of medial meniscus of left knee s/p left knee arthroscopy DOS: 07/27/2020 History of arthroscopic knee surgery left knee History of colonoscopy History of hernia repair Tear of medial meniscus of left knee S/P arthroscopy: 04/12/2022 Tear of medial meniscus of right knee S/P Arthroscopy: 05/05/2022 Injection: 06/16/2022 Family History Mother , 63 Depression Lung cancer Father , 69 Essential hypertension Cerebral ischemia Neoplasm ? PANCREATIC Pancreatic cancer ??? Sister No problems noted. Maternal Grandmother , 101 No problems noted. Son No problems noted. Daughter No problems noted. Paternal Family history Heart disease Myocardial infarction Maternal Grandfather No problems noted. Maternal Grandfather No problems noted. Paternal Grandmother No problems noted. Social History Smoking/Tobacco Use Status: Current every day Tobacco Type: smokeless tobacco Tobacco: How many years used: 35 Smokeless tobacco user: chewing tobacco Quit status: not considering quitting Second Hand Exposure: Yes Smoking risk assessment performed?: Yes Alcohol Intake: current Alcohol Intake frequency: holidays/special occasions only Alcohol type: beer and hard liquor Drug use: Never Substance use type: does not use Counseling given: No Counseling provided: none Caregiver/Support person: No Household members: spouse and children Housing: house Communication Needs: Hard of Hearing Do you need help understanding health information?: Rarely Pets and animals: Yes Pets and animals: cat(s) and dog(s) Sexually active: No Do you think of yourself as: straight/heterosexual Current gender identity: male What is your relationship status?: How often do you talk on the phone with friends or family?: three or more times per week How often do you get together with friends or relatives?: once per week How often do you attend roman catholic or jainism services?: decline to answer Do you belong to any clubs or organized social groups?: no Panel score (0-1 are the most socially isolated patients): 2 What type of physical activity do you participate in: none Duration: decline to answer Frequency: decline to answer Elisa/Jewish: Anabaptism Special elisa needs: No Seatbelt use: always Helmet use: Yes Helmet use: always Drive intox or ride w/intox garbage collector driver: No Do you feel safe at home: Yes Do you feel safe in your relationship?: Yes Additional Social history: unable to assess privately Exam Const General: cooperative Nutritional Appearance: average body habitus Orientation: alert, awake and oriented x3 HENMT Head: normal to inspection Ears: external ears normal Mouth: moist mucous membranes Eyes Pupils: PERRL EOM: EOM intact bilaterally and No nystagmus Neck Neck: full ROM and no tracheal deviation Chest Chest: normal inspection of the chest Resp Auscultation: clear to auscultation bilaterally Cardio Rate: regular rate Rhythm: regular rhythm GI Inspection: normal to inspection Palpation: soft, no guarding, not rigid and nontender Back/Spine/Pelvis Back: No no CVA tenderness Thoracic/Lumbar Spine: thoracic and lumbar spine normal to inspection Skin General skin exam: no rashes or lesions noted Neuro General: patient alert, patient awake and patient oriented x3 Cranial Nerves: CN's II-XI intact bilaterally, PERRL and no nystagmus Cognition: normal cognition Motor: muscle tone normal throughout and strength 5/5 throughout Sensory Exam: no sensory deficits noted Extrem General: normal to inspection Course Vital Signs Vital signs: Vital Signs Pulse 86 12/07/22 03:35 Respiratory Rate 29 H 12/07/22 03:35 Blood Pressure 151/104 H 12/07/22 03:35 Pulse Oximetry 99 12/07/22 03:35 Pulse 86 12/07/22 03:35 Respiratory Rate 29 H 12/07/22 03:35 Respiratory Effort Normal, Non-Labored 12/07/22 03:38 Blood Pressure 151/104 H 12/07/22 03:35 Blood Pressure Position Sitting 12/07/22 03:35 Pulse Oximetry 99 12/07/22 03:35 Oxygen Delivery Method Room Air 12/07/22 03:35 Oxygen Flow Rate 0 12/07/22 03:35 Pain Level 10 12/07/22 03:38 PAWSS Have you Been Recently Intoxicated or Drunk Within the Last 30 days?: No Have you Ever Experienced Previous Episodes of Alcohol Withdrawal?: No Have you ever Experienced Withdrawal Seizures?: No Have you ever Experienced Delirium Tremens(DT)s?: No Have you ever undergone Alcohol Rehabilitation Treatment (i.e, inpt ot outpatient treatment programs)?: No Have you ever Experienced Blackouts?: No Have you ever Combined Alcohol with other Downers within the last 90 days?: No Have you ever Combined Alcohol with any other Substance of Abuse during the last 90 days?: No Positive Blood Alcohol level on Presentation? [PCS.BAL]: No Evidence of Increased Autonomic Activity (i.e. HR>120, tremor, sweating, agitation, nausea)?: No Result: 0
[2022-12-07] MEDS: Ondansetron 4 MG/2 ML VIAL IVP (03:56)
[2022-12-07] MEDS: Ketorolac 15 MG/ML VIAL IVP ×2 (03:57→04:15)
[2022-12-07] MEDS: Normal Saline 1,000 ML 1000 ML IV (03:57)
[2022-12-07 04:11] LABS: Abs Immature Grans 0.06 10^3/uL (0.0-0.06); Absolute Basophil Count 0.06 10^3/uL (0.0-0.2); Absolute Eosinophil Count 0.17 10^3/uL (0.0-0.7); Absolute Lymphocyte Count 2.37 10^3/uL (1.2-3.4); Absolute Monocyte Count 0.72 10^3/uL (0.1-0.8); Absolute Neutrophil Count 6.57 10^3/uL (1.2-6.7); Basophils % 0.6; Eosinophils % 1.7; HGB 17.9 g/dL (13.5-17.5); Immature Grans % 0.6; Lymphocytes % 23.8; MCH 28.9 pg (27.0-33.0); MCHC 33.8 % (32.0-36.0); MCV 86 fL (80-95); MPV 10.7 fL (8.0-11.0); Monocytes % 7.2; Neutrophils % 66.1; Platelet Count 208 10^3/uL (130-400); RBC 6.19 10^6/uL (4.36-5.78); RDW 12.5 % (11.8-14.1); RDW-SD 38.7 fL; WBC 9.95 10^3/uL (4.4-10.8)
[2022-12-07] MEDS: MORPHine 4 MG/ML SYR IVP ×3 (04:15→04:55)
[2022-12-07 04:25] LABS: ALT 60 U/L (16-63); AST 21 U/L (15-37); Albumin 4.8 g/dL (3.4-5.0); Alkaline Phosphatase 102 U/L (46-116); BUN 18 mg/dL (7-18); Bilirubin, Total 0.9 mg/dL (0.2-1.0); CREATININE 2.1 mg/dL (0.70-1.30); Calcium 9.1 mg/dL (8.5-10.1); Chloride 103 mmol/L (98-107); Estimated GFR 36.49 (mL/min/1.73m2); Glucose 138 mg/dL (74-106); Lipase 43 U/L (16-77); Magnesium 2.1 mg/dL (1.8-2.4); Potassium 3.7 mmol/L (3.5-5.1); Sodium 141 mmol/L (136-145); Total Protein 7.8 g/dL (6.4-8.2)
[2022-12-07] MEDS: Lactated Ringers 1,000 ML 1000 ML IV (04:43)
[2022-12-07 05:43] LABS: Bilirubin Negative (Negative); Blood Large (Negative); Clarity Sl Cloudy (Clear); Glucose Negative (Negative); Ketones 15 mg/dL (Negative); Leukocyte Esterase Negative (Negative); Nitrite Negative (Negative); Urobilinogen 0.2 mg/dL (Up to 0.2)
[2022-12-07 05:53] LABS: Bacteria Rare HPF (Negative); C & S Indicated? No; Crystals Negative HPF (Negative); Epithelial Cells Rare HPF (Negative); Mucus Trace (Negative); WBC 0-2 HPF (0-5)
[2022-12-07 06:13] VITALS: O2SAT 98
[2022-12-07 06:14] VITALS: BP 143/95; PULSE 50
[2022-12-07 06:18] VITALS: RESP 17; O2SAT 97
== END 2022-12-07 06:38 | disposition critical access hospital (66) ==
PROVIDERS: Emergency Provider Student in an Organized Health Care Education/Training Program; PCP Nurse Practitioner Family
DX: N20.0 Calculus of kidney (principal); R10.9 Unspecified abdominal pain
CPT/HCPCS: 80053; 83690; 96361; 96374; 96375; 96376; 99284; 81003; 81015; 83735; 85025; J1885; J2270; J2405

== ENCOUNTER 2023-08-02 16:59 | Observation (INO) | payer OTHER, SELFPAY ==
[2023-08-02] VITALS (23 sets, daily range): BP systolic 127–163; BP diastolic 72–115; PULSE 49–65; RESP 12–18; TEMP 36.2–36.7; O2SAT 93–99; BMI 29.2
[2023-08-02] MEDS: Acetaminophen 500 MG TAB 1000 MG PO ×2 (06:51→19:35)
[2023-08-02] MEDS: Celecoxib 200 MG CAP 400 MG PO (06:52)
[2023-08-02] MEDS: Lactated Ringers 1,000 ML 30 ML IV (06:52)
[2023-08-02] MEDS: Gabapentin 300 MG CAP PO (06:53)
--- NOTE | 2023-08-02 06:59 | ANES.PREOP_ITS ---
General Info Date of Service Date Performed: 08/02/23 Height: 5 ft 10 in Weight: 92.533 kg Body Mass Index (BMI): 29.2 Surgical Procedure: Operation Date: 08/02/23 08:00 Proposed Procedure Side Surgeon p Medial Unicondylar Knee Arthroplasty Bilateral Inocente Mcgee MD Meds Allergies and Home Medications Allergies Allergy/AdvReac Type Severity Reaction Status Date / Time No Known Allergies Allergy Verified 08/02/23 06:27 Home Medication Medication Instructions Recorded aspirin 81 mg tablet,delayed 81 mg PO DAILY 10/18/20 release acetaminophen 500 mg tablet 500 mg PO Q6H PRN pain #60 tabs 04/12/22 ibuprofen 600 mg tablet 600 mg PO TID PRN pain #60 tabs 05/05/22 omeprazole 20 mg capsule,delayed See Rx Instructions .Route 06/13/23 release .COMPLEX #90 caps inhalational spacing device #1 ea 06/14/23 (Aerochamber MV spacer) naproxen 250 mg tablet 250 - 500 mg (1 - 2 x 250 mg) PO 08/02/23 BID PRN Moderate pain #40 tabs oxycodone 5 mg tablet 5 - 10 mg (1 - 2 x 5 mg) PO Q4H 08/02/23 PRN Moderate to severe pain #18 tabs Current Visit Medications: Current Medications Generic Name Dose Route Start Last Admin Trade Name Freq PRN Reason Stop Dose Admin Acetaminophen 1,000 mg 08/02/23 06:00 08/02/23 06:51 Acetaminophen 500 Mg Tab PO 08/31/23 23:59 1,000 mg PREOP PETER Administration Celecoxib 400 mg 08/02/23 06:00 08/02/23 06:52 Celecoxib 200 Mg Cap PO 08/31/23 23:59 400 mg PREOP PETER Administration Gabapentin 300 mg 08/02/23 06:00 08/02/23 06:53 Gabapentin 300 Mg Cap PO 08/31/23 23:59 300 mg PREOP PETER Administration Ringer's Solution 1,000 mls @ 30 mls/hr 08/02/23 06:00 08/02/23 06:52 IV 08/31/23 23:59 30 mls/hr INFUSION PETER Administration Tranexamic Acid/Sodium Chloride 1,000 mg in 100 mls @ 600 mls/hr 08/02/23 06:00 IVPB 08/31/23 23:59 PREOP PETER IV Miscellaneous Supplies 1 each 08/02/23 06:00 Iv Access IV 08/31/23 23:59 DIRECTED PETER Sodium Chloride 0 ml 08/02/23 06:00 Normal Saline Flush 10 Ml Syr IV 08/31/23 23:59 PRN PRN Sodium Chloride 0 ml 08/02/23 06:00 Normal Saline 10 Ml Vial IJ 08/31/23 23:59 DIRECTED PRN Sterile Water 0 ml 08/02/23 06:00 Water,Injection,Sterile 10 Ml Vial IJ 08/31/23 23:59 DIRECTED PRN PFSH Active Problems Active Problems: Problem Status Onset Code Arthritis of knee, right M17.11 Arthritis of knee, left M17.12 Palpitations R00.2 Lower abdominal pain R10.30 Renal insufficiency, mild N28.9 Numbness of left foot R20.8 COVID-19 U07.1 Left inguinal pain R10.32 Double vision H53.2 Epididymitis N45.1 Right rotator cuff tendinitis M75.81 Encounter for annual physical exam Z00.00 Postop check Z09 Left inguinal hernia K40.90 Left groin pain R10.32 Left testicular pain N50.812 Colon cancer screening Z12.11 Intra-abdominal adhesions K66.0 History of umbilical hernia repair Z98.890, Z87.19 Partial small bowel obstruction K56.600 Abdominal pain R10.9 Ileus K56.7 Bilateral knee pain M25.561, M25.562 Left knee pain M25.562 Paresthesia R20.2 Glenoid labrum tear 06/21/16 S43.439A Non-celiac gluten sensitivity 06/22/15 K90.41 Pes planus of both feet M21.41, M21.42 Patellofemoral arthralgia of both knees M22.2X1, M22.2X2 Bursitis of right shoulder M75.51 Gastroesophageal reflux disease without esophagitis 08/06/17 K21.9 Left anterior fascicular block (LAFB) 08/06/17 I44.4 Non-celiac gluten sensitivity 06/22/15 K90.41 Situational anxiety 08/06/17 F41.8 Sleep disorder 08/06/17 G47.9 Tendinitis of left rotator cuff 06/21/16 M75.82 Medical History Medical History Hx of hearing loss Surgical History Surgical History History of arthroscopic knee surgery left knee History of colonoscopy History of hernia repair Tear of medial meniscus of left knee S/P arthroscopy: 04/12/2022 Tear of medial meniscus of right knee S/P Arthroscopy: 05/05/2022 Injection: 06/16/2022 Complex tear of medial meniscus of left knee s/p left knee arthroscopy DOS: 07/27/2020 Tobacco Smoking/Tobacco Use Status: Current every day Tobacco Type: smokeless tobacco Smokeless tobacco user: chewing tobacco Passive smoking exposure: Yes Second hand exposure: Yes Alcohol Alcohol Intake: current Alcohol intake frequency: holidays/special occasions on ly Alcohol type: beer and hard liquor Substance Use Substance use: Never Substance use type: does not use Counseling provided: none Vital Signs and Lab Results Vital Signs Most Recent Vital Signs in EMR: Most Recent Vital Signs Temp Pulse Resp BP Pulse Ox 36.3 C L 63 16 148/99 H 98 08/02/23 06:28 08/02/23 06:28 08/02/23 06:28 08/02/23 06:28 08/02/23 06:28 Lab Results Blood Type / Crossmatch: No Data to Display Complete Blood Count: No Data to Display Complete Metabolic Panel: No Data to Display Liver Function Panel: No Data to Display Coagulation Panel: No Data to Display Cardiac Panel: No Data to Display Arterial Blood Gas: No Data to Display Venous Blood Gas: No Data to Display Pancreas Panel: No Data to Display Thyroid Panel: No Data to Display Infectious Disease: No Data to Display Blood Cultures: No Data to Display Toxicology Panel: No Data to Display Imaging and Studies Imaging and Studies Study information below may be from another EMR and interpreted by another provider. Please see original notes in EMR for more complete details. Carotid Artery Summary:: IMPRESSION: No evidence for hemodynamically significant carotid stenosis. Anesthesia Assessment and Plan Anesthesia History Personal History: No History of Anesthesia Complications Family History: No Family History of Anesthesia Complications Exercise Tolerance Exercise Tolerance: Metabolic Equivalents>4 Pertinent Negatives Pertinent Negatives: No Symptoms of GERD, No Major Cardiovascular Symptoms or Complaints and No Major Pulmonary Symptoms or Complaints Cardiac & Pulmonary Exam Cardiac Exam: Normal S1/S2 Heart Sounds Pulmonary Exam: Clear Bilateral Breath Sounds Implantable Cardiac Device Does patient have a Pacemaker or an ICD?: No Airway Exam Known Difficult Airway: No Mallampati Class: 1 Mouth Opening: Normal (> 3cm) Thyromental Distance: Greater than 3 cm Neck Range of Motion: Full ROM Neck Circumference: Normal Teeth Condition: Normal Dentition ASA Classification ASA Score: ASA 2 Emergency Case?: No NPO Status NPO Status: NPO Clears >2 hours, Solids >8 hours Anesthesia Plan Resuscitation Status: Full Code Anesthesia Technique: General Anesthesia Airway Planned: Endotracheal Tube Pain Management: Surgeon and patient request nerve block Monitors Used: Standard Monitors and SedLine
--- NOTE | 2023-08-02 07:08 | PDOC.DSDIS_ITS ---
Date of service: 08/02/23 Time of Service: 16:00 Discharge Plan Disposition Patient Disposition: Home Condition: Stable Discharge Details Attending Provider: Inocente Mcgee Primary Care Provider: Juan José Houser Home Meds and New Rx's Prescriptions: New naproxen 250 mg tablet 250 - 500 mg PO BID PRN (Reason: Moderate pain) Qty: 40 0RF oxycodone 5 mg tablet 5 - 10 mg PO Q4H PRN (Reason: Moderate to severe pain) Qty: 18 0RF Continued aspirin 81 mg tablet,delayed release (DR/EC) 81 mg PO DAILY (DME) Aerochamber MV Spacer See Rx Instructions .Route Qty: 1 0RF Rx Instructions: As directed omeprazole 20 mg capsule,delayed release(DR/EC) See Rx Instructions .ROUTE .COMPLEX Qty: 90 3RF Dose Instruction: TAKE 1 CAPSULE BY MOUTH DAILY Rx Instructions: TAKE 1 CAPSULE BY MOUTH DAILY acetaminophen 500 mg tablet 500 mg PO Q6H PRN (Reason: pain) Qty: 60 2RF ibuprofen 600 mg tablet 600 mg PO TID PRN (Reason: pain) Qty: 60 0RF Discharge Instructions Additional Instructions: Surgery: Bilateral medial unicondylar knee replacement Activity: Weightbearing as tolerated. Recommend elevation to minimize swelling and discomfort. Walk as comfort allows. May use crutches as needed for a few weeks. It is important to restore full knee extension as soon as possible. Gently increase knee flexion over the next few weeks. Do not rest with pillows behind knee to prevent knee from getting stuck bent. Encourage ankle pumps and wiggling toes to increase circulation. A physical therapy prescription will be sent electronically to begin in 2-3 weeks. Aspirin 81 mg take 1 twice daily to prevent a blood clot 30 days, starting tomorrow morning Prescriptions: Naproxen 250 mg take 1-2 every 12 hours with a meal as needed for moderate pain Oxycodone 5 mg take 1-2 every 4-6 hours as needed for severe pain You may use [id number] Tylenol (acetaminophen) as needed for mild pain. These pain medications may be taken all at once or in different combinations as needed. Also, recommend Colace (docusate) as a stool softener as surgery and pain medicine cause constipation. You may try [id number] diphenhydramine (Benadryl) 25-50 mg nightly as a sleep aid Dressings: Leave Band-Aids in place until follow-up. Keep clean and dry at all times. May loosen/adjust and even remove Paul wraps as needed. Follow-up: 10-[address] Mcgee You may take off the leg compression Paul wrap and stockings tomorrow at home. You may also leave them on a few days longer if you have a history of leg swelling or edema. Let us know right away if you develop any redness, drainage, fevers, chest pain, or trouble breathing. Do not drink alcohol or drive for at least 24 hours after anesthesia. Please call the office during business hours with any questions or concerns. Stand Alone Forms: Anesthesia Discharge Inst., Maria Fernanda.Nerve Block Instructions, Jory Lawson ([facility]) Referrals: Inocente Mcgee MD [ [facility] STAFF PHYSICIAN] - 08/15/23 8:45 am Discharge Orders Discharge Orders: Discharge Order (Routine); Ordered 08/02/23 Ordered By: Winston Fleming DS: Diagnosis Discharge Diagnosis (1) Arthritis of knee, right: Status: Acute (2) Arthritis of knee, left: Status: Acute
--- NOTE | 2023-08-02 07:14 | ROE_ITS ---
Date of service: 08/02/23 Time of Service: 07:30 Operative Note Operative Note DATE OF PROCEDURE: 08/02/23 PRE-OP DIAGNOSIS: 1. Left knee medial compartmental arthritis 2. Right knee medial compartmental arthritis POST-OP DIAGNOSIS: same PROCEDURE: 1. Left knee medial unicompartmental arthroplasty, CPT # 37911 2. Right knee medial unicompartmental arthroplasty, CPT # 70107 The asset protection assistant was medically required as this procedure involves retraction, protection of neurovascular structures, and manipulation of multiple instruments and implants at the same time, which cannot be done without a skilled asset protection assistant. SURGEON: Inocente Mcgee [employer] TE[employer]ER: Winston Fleming ANESTHESIA TYPE: Local By Surgeon, General LMA/ETT and Primary Nerve Block Refer to Anesthesia Record ESTIMATED BLOOD LOSS: 100 TOURNIQUET TIME: 0 COMPLICATIONS: None Patient was transported to: PACU Patient's condition: stable Implants: Left- De[employer] Sigma HP partial knee size 3 metal-backed tibial tray, 8 mm tibial insert fixed bearing, size 4 femoral component Right- [employer] HP partial knee size 3 metal-backed tibial tray, 7 mm tibial insert fixed bearing, size 4 femoral component Indications: Please see complete medical record for details. Findings: Left-largely isolated medial compartment arthritis, about 1 x 1 cm area central trochlea of moderate chondromalacia, undersurface patella ok, ACL intact, lateral compartment okay Right-urgent isolated medial compartment arthritis, about 2 x 2 cm area central trochlea moderate chondromalacia, undersurface patella only mild chondromalacia, lateral compartment with mild focal distal lateral femoral condyle chondromalacia, intact ACL. Procedure Description: The patient was taken to the operating room and transferred to the operating room table. General anesthesia was induced. All bony prominences were well- padded. SCD was placed on the second side. Preoperative antibiotics and 1 g TXA were administered. A tourniquet was placed loosely over padding high on the patient's thigh. The left knee and lower extremity were prepped and draped in the usual sterile fashion. The correct patient, procedure, and first left side of the procedure were all verified prior to incision. A slightly medial of midline longitudinal approach was used to the knee extending from the superior pole the patella to the distal aspect of the tibial tubercle. The quadriceps tendon, patella borders, and patellar tendon were exposed. A full-thickness arthrotomy was performed starting splitting the quadriceps tendon and leaving a sleeve of tissue on the medial aspect of the patella and taking care to progress along the medial margin the patellar tendon. The MCL was elevated off the proximal medial tibia. The tibial alignment jig was set in place on the anterior medial aspect of the tibia and carefully adjusted to achieve proper alignment in the coronal and sagittal planes. Reciprocating saw was used to create the vertical cut at the medial aspect of the medial tibial eminence taking care to protect the ACL ligament footprint. The transverse cut was then done using the microsagittal saw through the jig taking care to retract and protect the MCL. The bone piece and cut were inspected and found to be appropriate for patient anatomy. A box rasp was used to clean up the cut especially the L component. The 8 mm spacer block was inserted and found to have good stability in full extension and 7mm spacer block in 90 degrees of flexion with approximately 2 mm of joint space opening in about 20 degrees of flexion. With the knee in extension, the tibial trial spacer block was used to marjorie the rotational alignment and anterior extent of the femoral component. The spacer block was removed and the tibia was sized with the depth gauge. The distal femoral cutting block was inserted taking care to orient it appropriately with the knee in full extension. The cut was done using the saw through the guide. The posterior +1mm resection cutting block was then applied to the distal cut, ensured to be flush, rotation set, and it was pinned in place. The posterior cut was completed through the guide. The guide was removed, and the femur was sized with the femoral sizing blocks. The appropriate sized cutting jig was selected. Care was taken to ensure the block was flush with the resected distal and posterior femur bone surfaces. A curved gouge was used to cut the profile of the proximal tip of the femoral prosthesis, marjorie the extent of the anterior chamfer cut, and prevent trochlear cartilage delamination. The anterior cut was done using the osteotomes, the drill was used to drill the 2 peg holes, and the posterior chamfer cut was done through the jig with the saw. This last cutting block and bone cuts were removed. The medial meniscus remnant was removed. The femoral component trial was placed on the distal femur and the 8mm spacer block confirmed appropriate balancing in flexion, extension, and again 2 mm of medial joint space opening in about 20 degrees of flexion. Tibial template was inserted and the size confirmed to be appropriate. The keel was used by hand to remove bone from the slot and the tibial peg drill was used in the peg hole. The pulse lavage was used to clean the bone surfaces. SmartSet medium viscosity cement was prepared. At the appropriate time during the early working phase, th e cement was applied to the backside of the tibial and femoral components. Then, cement was carefully placed and pressurized into the proximal tibia taking care to only have minimal cement posteriorly. The tibial component was inserted at an angle and then impacted directing pressure from posterior to anterior to keep the flow of cement from posterior to anterior. Cement was then applied to the distal femur and the femoral component impacted. Excess cement was removed. The knee was brought into full extension and this position with axial load was maintained until the cement was completely hardened at 20 minutes. A combination R.E.C.K. (123 mg Ropivacaine, 0.25 mg Epinephrine, 0.04 mg Clonidine, and 15 mg Ketorolac) 50 ml injection was widely infiltrated about the knee. The wound was copiously irrigated with the pulse lavage and Surgiphor. Tibial tray admitting representative was removed, and the final tibial insert was inserted and clicked into place. The knee was tested through range of motion found to be stable with equal balancing from full extension to flexion past 90 degrees and a couple millimeters of medial joint space opening in about 20 degrees of flexion. Patellar tracking was good. Appropriate hemostasis was achieved. The capsule was approximated using #1 Vicryl in a figure-of-8 interrupted fashion and then closed using Stratafix #1 PDS barbed suture in a running fashion. The superficial layers were irrigated. Subcutaneous tissue was closed using 2-0 Monocryl in a buried interrupted fashion. Skin was closed using 3-0 Monocryl in a buried subcuticular fashion. The skin incision was glued and then covered with a Mepilex Ag dressing. An Paul wrap was applied from the foot up to the thigh. Drapes and initial set of instruments removed. An SCD was placed on this initial side. Next, the second right side of the procedure was prepped and draped in entirely separate manner with new instruments sets opened as well. An additional 2 g of cefazolin preoperative antibiotics and 1 g TXA were administered. A tourniquet was placed loosely over padding high on the patient's thigh. Patient's status was confirmed to be appropriate to proceed and the correct second side and procedure were confirmed prior to continuing. A slightly medial of midline longitudinal approach was used to the knee extending from the superior pole the patella to the distal aspect of the tibial tubercle. The quadriceps tendon, patella borders, and patellar tendon were exposed. A full-thickness arthrotomy was performed starting splitting the quadriceps tendon and leaving a sleeve of tissue on the medial aspect of the patella and taking care to progress along the medial margin the patellar tendon. The MCL was elevated off the proximal medial tibia. The tibial alignment jig was set in place on the anterior medial aspect of the tibia and carefully adjusted to achieve proper alignment in the coronal and sagittal planes. Reciprocating saw was used to create the vertical cut at the medial aspect of the medial tibial eminence taking care to protect the ACL ligament footprint. The transverse cut was then done using the microsagittal saw through the jig taking care to retract and protect the MCL. The bone piece and cut were inspected and found to be appropriate for patient anatomy. A box rasp was used to clean up the cut especially the L component. The 7 mm spacer block was inserted and found to have good equal stability in full extension and in 90 degrees of flexion with approximately 2 mm of joint space opening in about 20 degrees of flexion. With the knee in extension, the tibial trial spacer block was used to marjorie the rotational alignment and anterior extent of the femoral component. The spacer block was removed and the tibia was sized with the depth gauge. The distal femoral cutting block was inserted taking care to orient it appropriately with the knee in full extension. The cut was done using the saw through the guide. The posterior cutting block was then applied to the distal cut, ensured to be flush, rotation set, and it was pinned in place. The posterior cut was completed through the guide. The guide was removed, and the femur was sized with the femoral sizing blocks. The appropriate sized cutting jig was selected. Care was taken to ensure the block was flush with the resected distal and posterior femur bone surfaces. A curved gouge was used to cut the profile of the proximal tip of the femoral prosthesis, marjorie the extent of the anterior chamfer cut, and prevent trochlear cartilage delamination. The anterior cut was done using the osteotomes, the drill was used to drill the 2 peg holes, and the posterior chamfer cut was done through the jig with the saw. This last cutting block and bone cuts were removed. The medial meniscus remnant was removed. The femoral component trial was placed on the distal femur and the 7mm spacer block confirmed appropriate balancing in flexion, extension, and again 2 mm of medial joint space opening in about 20 degrees of flexion. Tibial template was inserted and the size confirmed to be appropriate. The keel was used by hand to remove bone from the slot and the tibial peg drill was used in the peg hole. The pulse lavage was used to clean the bone surfaces. SmartSet medium viscosity cement was prepared. At the appropriate time during the early working phase, the cement was applied to the backside of the tibial and femoral components. Then, cement was carefully placed and pressurized into the proximal tibia taking care to only have minimal cement posteriorly. The tibial component was inserted at an angle and then impacted directing pressure from posterior to anterior to keep the flow of cement from posterior to anterior. Cement was then applied to the distal femur and the femoral component impacted. Excess cement was removed. The knee was brought into full extension and this position with axial load was maintained until the cement was completely hardened at 18 minutes. A combination R.E.C.K. (123 mg Ropivacaine, 0.25 mg Epinephrine, 0.04 mg Clonidine, and 15 mg Ketorolac) 50 ml injection was widely infiltrated about the knee. The wound was copiously irrigated with the pulse lavage and Surgiphor. Tibial tray admitting representative was removed, and the final tibial insert was inserted and clicked into place. The knee was tested through range of motion found to be stable with equal balancing from full extension to flexion past 90 degrees and a couple millimeters of medial joint space opening in about 20 degrees of flexion. Patellar tracking was good. Appropriate hemostasis was achieved. The capsule was approximated using #1 Vicryl in a figure-of-8 interrupted fashion and then closed using Stratafix #1 PDS barbed suture in a running fashion. The superficial layers were irrigated. Subcutaneous tissue was closed using 2-0 Monocryl in a buried interrupted fashion. Skin was closed using 3-0 Monocryl in a buried subcuticular fashion. The skin incision was glued and then covered with a Mepilex Ag dressing. An Paul wrap was applied from the foot up to the thigh. The patient awoke from anesthesia without complication was transferred to the recovery room in stable condition.
[2023-08-02] MEDS: ceFAZolin 2 GM/50 ML BAG 100 GM (08:07)
[2023-08-02] MEDS: TRANEXAMIC ACID/SOD. CHL. 1,000 MG/100 ML BAG 600 MG IVPB ×2 (08:11→11:31)
--- NOTE | 2023-08-02 09:28 | ANES.NERVE_ITS ---
Nerve Block Single Injection Procedure Date and Time Date Performed: 08/02/23 Procedure Start: 07:23 Location Where Procedure Performed Procedure Location: Day Surgery Unit Reason Performed: Postoperative Analgesia Requesting Provider: Inocente Mcgee Timeout Performed Timeout Performed: Yes Monitoring Used ECG, Blood Pressure, SpO2 and See EMR for corresponding vital signs Sterility Sterility: Hand Hygiene, Surgical Cap, Surgical Mask, Sterile Gloves and Chlorhexidine Sedation Given During Procedure Sedation Given (Indicate Dose Given): Versed IV Dose:: 2mg after timeout Patient Mental Status Patient Mental Status: Awake Nerve Block 1st Nerve Block: Laterality: Bilateral Block Type: Adductor Canal (Picture obtained, system did not save for left side, right in record) Ultrasound Image Saved?: No Needle / Catheter Used: 100mm SonoPlex II Local Anesthetic Bolus (Indicate Dose Given): Lidocaine used for local infiltration of skin, Injected in 3-5ml increments after negative blood aspiration, Half of Total block solution given into each side, Bupivacaine 0.25% Dose:: 20mL and Exparel Dose:: 20mL Additives (Indicate Dose Given): None Ultrasound: Sterile probe cover and gel used Nerve Stimulator: Supplement to Ultrasound use and No twitch or parasthes ia noted < 0.5 mA Paresthesia: None Procedure Tolerated: No Complications Procedure Outcome: Successful Procedure Comment: Patient was anxious for procedure, but tolerated well. Performed By: Angela Rodriguez
--- NOTE | 2023-08-02 11:00 | DI.RAD_ITS ---
Exam(s) XR KNEE RT 2V AP,LAT EXAM: XR KNEE RT 2V AP,LAT INDICATION: Right knee arthritis. COMPARISON: CR XR KNEE LT 2V AP,LAT from 08/02/2022 CR XR KNEE RT 2V AP,LAT from 08/02/2022 TECHNIQUE: 2D digital imaging was performed. Two views. FINDINGS: A medial femoral tibial joint space prosthesis has been placed. The alignment appears satisfactory. There is residual postsurgical air in the soft tissues. DATA REPOSITORY: RADIATION DOSE DELIVERED:
--- NOTE | 2023-08-02 11:00 | DI.RAD_ITS ---
Exam(s) XR KNEE LT 2V AP,LAT EXAM: XR KNEE LT 2V AP,LAT INDICATION: Left knee arthritis. COMPARISON: CR XR KNEE LT 2V AP,LAT from 08/02/2022 CR XR KNEE RT 2V AP,LAT from 08/02/2023 TECHNIQUE: 2D digital imaging was performed. Two views. FINDINGS: A medial femoral tibial joint space prosthesis has been placed. The alignment appears satisfactory. There is residual postsurgical air in the soft tissues. DATA REPOSITORY: RADIATION DOSE DELIVERED:
[2023-08-02] MEDS: ceFAZolin 1 GM/50 ML BAG IVPB ×2 (15:19→22:34)
[2023-08-02] MEDS: fentaNYL 100 MCG/2 ML VIAL IVP (15:26)
--- NOTE | 2023-08-02 15:46 | W.ANESPOSTOP ---
Postoperative Evaluation Date, Time and Location Date Performed: 08/02/23 Time Performed: 15:47 Patient Location: PACU Vital Signs Most Recent Imported Vital Signs: Most Recent Vital Signs Temp Pulse Resp BP Pulse Ox 36.5 C 56 L 15 141/72 H 93 08/02/23 15:34 08/02/23 15:34 08/02/23 15:34 08/02/23 15:34 08/02/23 15:34 Pain Score Most Recent Pain Score: Most Recent Pain Score Pain Level 5 08/02/23 15:34 Assessment Mental Status: Awake (Alert & Oriented to Patient Baseline) Airway and Respiratory Function: Patent airway with normal (patient baseline) respiratory exam Cardiovascular Function: Hemodynamically Stable Hydration Status: Adequately Hydrated Nausea & Vomiting: No Nausea or Vomiting Pain: Pain is tolerable per patient Peripheral Nerve Block: Regional nerve block not resolved at time of post operative discharge
--- NOTE | 2023-08-02 16:34 | PT.INNT ---
PT Notes Patient was just received back from PACU and is unsafe and unable to participate in mobility assessment at this time. Nurse Deon in agreement. Will plan on PT evaluation first thing tomorrow morning should orthopedic surgeon decide to admit patient overnight for continued monitoring.
[2023-08-02] MEDS: Lactobacillus Acidophilus CAP 1 CAP PO (17:22)
[2023-08-02] MEDS: oxyCODONE 5 MG TAB PO (19:36)
[2023-08-02] MEDS: Normal Saline Flush 10 ML SYR IV (19:52)
[2023-08-02] MEDS: MORPHine 2 MG/ML SYR IVP (19:53)
[2023-08-03 03:34] VITALS: BP 137/88; PULSE 60; RESP 16; O2SAT 97
[2023-08-03] MEDS: ceFAZolin 1 GM/50 ML BAG IVPB (05:37)
[2023-08-03] MEDS: Acetaminophen 500 MG TAB 1000 MG PO (05:56)
[2023-08-03] MEDS: oxyCODONE 5 MG TAB PO (05:57)
--- NOTE | 2023-08-03 07:20 | PGE_ITS ---
Date of Service Date of service: 08/03/23 Time of Service: 11:16 Assessment and Plan Assessment and plan (1) Arthritis of knee, left: Status: Acute Assessment and plan: 57-year-old male postop day #1 status post bilateral medial unicondylar knee arthroplasty Patient feeling well, mild medial knee soreness, doing exercise in bed and was able to walk okay. Good physical therapy evaluation. No major complaints or concerns. Bilateral knee dressings clean dry intact, excellent active straight leg raise knee extension and flexion to about 90 degrees not further tested. In tact motor sensor about the knee and distally. No signs of blood clot, infection, or problem. Reviewed with patient and his partner, discharged today. Follow-up as scheduled and see discharge instructions for greater details. (2) Arthritis of knee, right: Status: Acute Objective Last Vital Signs Temp 98.1 F 08/02/23 17:30 Pulse 60 08/03/23 03:34 Resp 16 08/03/23 03:34 BP 137/88 08/03/23 03:34 Pulse Ox 97 08/03/23 03:34 Time Spent with Patient Time Spent with Patient: <25 minutes Time was spent: preparing to see the patient(eg.review tests) and counseling the patient
[2023-08-03 07:36] VITALS: BP 145/94; PULSE 72; RESP 15; TEMP 36.7; O2SAT 98
--- NOTE | 2023-08-03 08:43 | PT.INIE ---
PT Notes Visit Reasons: Knee Arthritis Inpatient Physical Therapy Evaluation Date: 08/03/23 Referring Doctor: Dr. Mcgee PT Orders: PT CONSULT: bilat medial unicompartmental arthroplasty, WBAT bilat Precautions: standard Patient Profile/Admitting Diagnosis: Patient admitted following bilat medial unicompartmental arthroplasty 08/02/23, now post-op day 1. Social History/Home Situation: Lives in a split level home with 12 [address], bilat rails. Resides with his , who is present for end of today's session. Works in maintenance at [employer]. Equipment Owned/DME: crutches Subjective: Winston states that he is very stiff and anxious to get up out of bed. He's looking forward to going home later today. Objective: General Observation: Resting in bed, AMELIA wraps to bilat knees, cryocuff to left knee, ice packs to right knee. Knees flexed to approx 30* at rest. Mental Status: A&Ox3 ROM: Right Upper Extremity: WFL Left Upper Extremity: WFL Right Lower Extremity: Knee motion actively allows 0-95* flexion. Left Lower Extremity: Knee motion actively allows 0-95* flexion. Strength: Right Upper Extremity: WFL Left Upper Extremity: WFL Right Lower Extremity: Able to perform SLR without extension lag. Ankle DF 3/5 or greater. Left Lower Extremity: Able to perform SLR without extension lag. Ankle DF 3/5 or greater. Sensation: intact distally Bed Mobility/Transfers: supine-sit: independent sit-stand: initially requires cues for technique, then supervision only by end of session stand-sit: supervision only sit-supine: supervision Gait: Ambulates 30'x1 with FWW, CGA. Later in session able to ambulates 20'x1, 10'x1 with FWW, supervision only. Stairs: Manages 4 therapeutic stairs with bilat rails, CGA initially, then supervision only. Balance: Static Sitting: Normal Dynamic Sitting: Normal Static Standing: Good Dynamic Standing: fair Special Tests: Mobility Limitations Standardized Measure [facility] AM-PAC 6 clicks Basic Mobility Inpatient Short Form: Raw Score: 23 CMS Score: 11% Informed Consent/Education: Patient instructed in purpose of PT consult and plan of care. Treatment: Initial Evaluation (22242) Gait Training (49720): Instructed in use of walker. Walker fitted to patient height, and he was cued for upright positioning. Encourage step through gait pattern. Instructed in equipment management for transfers to bed, chair and navigating in bathroom. Able to stand without support to urinate, with good equipment management and safety during set up. Stair training on therapeutic stairs, with step to pattern, bilat rails. Therapeutic Exercises (12132e3): Instructed in anti-embolic exercises for hourly completion -ankle pumps x 1 minute -quad sets x 1 minute -glute sets x 1 minute Perform 10 reps of SLR and heel slides 3x/day Reviewed activity recommendations, with encouragement to perform frequent, short walks Continue icing Avoid prolonged positioning with knees bent- encourage passive knee extension when at rest Assessment: Patient is a 57 year old male referred to physical therapy services with the diagnosis of bilat medial unicompartmental arthroplasty. Patient presents with clinical signs and symptoms consistent with post-operative status, as demonstrated by the following impairment level findings: 1. decreased knee ROM bilat 2. post-op pain 3. gait impairments 4. decreased activity tolerance Impairments are contributing to the following functional limitations: 1. decreased independence with stair management 2. requiring education on management of equipment 3. decreased activity tolerance for household distance ambulation Patient is assessed as Low 27761 complexity based on the following: History: As above. No significant complicating factors Examination: funcitonal limitations as above Presentation: stable Decision Making: low Plan of Care/Treatment Plan: No further PT required in acute care setting. Patient appropriate for discharge home once medically cleared. Provided with handout outlining HEP recommendations. DISCHARGE RECOMMENDATIONS: Home with no services (outpatient PT once cleared by ortho) TREATMENT CODE/TIME: [id number] ([id number], [id number]) Please sign an return this page within 30 days if you agree with the above POC. Thank you! Physician Signature Date [facility] All Active Problems (Updated 08/02/23 @ 16:00 by Inocente Mcgee MD) Arthritis of knee, right (Acute) Arthritis of knee, left (Acute) Palpitations (Acute) Lower abdominal pain (Acute) Renal insufficiency, mild (Acute) Numbness of left foot (Acute) COVID-19 (Acute) Left inguinal pain (Acute) Double vision (Acute) Epididymitis (Acute) Right rotator cuff tendinitis (Acute) Encounter for annual physical exam (Acute) Postop check (Acute) Left inguinal hernia (Acute) Left groin pain (Acute) Left testicular pain (Acute) Colon cancer screening (Acute) Intra-abdominal adhesions (Acute) History of umbilical hernia repair (Acute) Done laparoscopically with [place] [address] Roy Partial small bowel obstruction (Acute) Abdominal pain (Acute) Ileus (Acute) Left knee pain (Acute) ? mensical degenerative tear Paresthesia (Acute) ? 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
[2023-08-03] MEDS: Omeprazole 20 MG CAPCR PO (08:54)
[2023-08-03] MEDS: Lactobacillus Acidophilus CAP 1 CAP PO (08:54)
[2023-08-03] MEDS: Aspirin E.C. 81 MG TABEC PO (08:55)
--- NOTE | 2023-08-03 09:00 | INITIAL_ITS ---
Date of service: 08/03/23 Time of Service: 09:00 Care Management Initial Assmt Initial Assessment REASON FOR HOSPITALIZATION:: knee arthroplasty requiring multimodal pain control PREVIOUS FUNCTIONAL STATUS/SOCIAL/FAMILY SUPPORTS:: Winston lives in [place] with his Yaritza. He drives and is active and independent at baseline. 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 CURRENT FUNCTIONAL STATUS:: Winston was lying in bed, Yaritza is at his bedside. He reports that his pain is a 5 out of 10, which to him is manageable. Per pt, his FMLA paperwork was completed prior to his admission. Winston or his w sammie deny any concerns. ADVANCE DIRECTIVES:: None on file Has patient been provided with info about the portal/API?: Yes Did the patient sign up for the portal?: Yes (Prior to admission) CODE STATUS:: Full Code INSURANCE COVERAGE / FINANCIAL ISSUES:: [employer] CURRENT HOME/COMMUNITY SERVICES/EQUIPMENT:: None PRIMARY CARE PHYSICIAN:: Juan José Rodriguez NP POTENTIAL DISCHARGE NEEDS:: Discharge plan of care, Ortho follow up appointment PATIENT/FAMILY EDUCATION NEEDS:: Review discharge instructions, limitations, medications and plan to follow up with community providers. Discuss ask me three. TRANSPORTATION:: private vehicle with PLAN:: Requires hospitalization for post op pain control and PT consult. Per admitting Ortho M.D, return home is expected later today if medically ready. Yaritza is planning to transport him home when ready for discharge. CM will continue to follow. PFSH All Active Problems (Updated 08/02/23 @ 16:00 by Inocente Mcgee MD) Arthritis of knee, right (Acute) Arthritis of knee, left (Acute) Palpitations (Acute) Lower abdominal pain (Acute) Renal insufficiency, mild (Acute) Numbness of left foot (Acute) COVID-19 (Acute) Left inguinal pain (Acute) Double vision (Acute) Epididymitis (Acute) Right rotator cuff tendinitis (Acute) Encounter for annual physical exam (Acute) Postop check (Acute) Left inguinal hernia (Acute) Left groin pain (Acute) Left testicular pain (Acute) Colon cancer screening (Acute) Intra-abdominal adhesions (Acute) History of umbilical hernia repair (Acute) Done laparoscopically with [place] [address] Roy Partial small bowel obstruction (Acute) Abdominal pain (Acute) Ileus (Acute) Left knee pain (Acute) ? mensical degenerative tear Paresthesia (Acute) ? 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 PANCREATIC Pancreatic cancer ??? Sister No problems noted. Maternal Grandmother , 101 No problems noted. Son No problems noted. Daughter No problems noted. Paternal Family history Heart disease Myocardial infarction Maternal Grandfather No problems noted. Maternal Grandfather No problems noted. Paternal Grandmother No problems noted. Social History Smoking/Tobacco Use Status: Current every day Tobacco Type: smokeless tobacco Tobacco: How many years used: 35 Smokeless tobacco user: chewing tobacco Quit status: not considering quitting Second Hand Exposure: Yes Smoking risk assessment performed?: Yes Alcohol Intake: current Alcohol Intake frequency: holidays/special occasions only Alcohol type: beer and hard liquor Drug use: Never Substance use type: does not use Counseling given: No Counseling provided: none Caregiver/Support person: No Household members: spouse and children Housing: house Communication Needs: Hard of Hearing Do you need help understanding health information?: Rarely Pets and animals: Yes Pets and animals: cat(s) and dog(s) Sexually active: No Do you think of yourself as: straight/heterosexual Current gender identity: male What is your relationship status?: How often do you talk on the phone with friends or family?: three or more times per week How often do you get together with friends or relatives?: once per week How often do you attend uatsdin or shinto services?: decline to answer Do you belong to any clubs or organized social groups?: no Panel score (0-1 are the most socially isolated patients): 2 What type of physical activity do you participate in: none Duration: decline to answer Frequency: decline to answer Elisa/Denominational: Jewish Special elisa needs: No Seatbelt use: always Helmet use: Yes Helmet use: always Drive intox or ride w/intox local company intermodal truck driver: No Do you feel safe at home: Yes Do you feel safe in your relationship?: Yes
[2023-08-03] MEDS: Naproxen 500 MG TAB PO (10:51)
--- NOTE | 2023-08-03 12:09 | PDOC.CMDIS ---
Date of service: 08/03/23 Time of Service: 12:09 LACE Index Scoring Tool Questions: Length of Stay (in days): 1 Was the patient admitted via the E.D.?: No Care Management Discharge Plan Reason for Hospitalization: knee arthroplasty requiring multimodal pain control Discharge Plan: Winston is discharged home via private vehicle with his . He will follow his discharge plan of care as instructed by Ortho. No new services are ordered, prior to his discharge. Patient/Family Education Needs: Review discharge instructions, limitations and plan to follow up with Ortho. Discuss ask me three and goals of self care. SDOH Health Related Social Needs: No Data to Display
== END 2023-08-03 12:55 | disposition home or self-care (01) ==
LOC: ICU 19:02 → MS 20:28
PROVIDERS: Admitting Provider Student in an Organized Health Care Education/Training Program; PCP Nurse Practitioner Family; Visit Provider Student in an Organized Health Care Education/Training Program
PROC: (CPT 27446; principal; 2023-08-02 07:30)
DX: M17.0 Bilateral primary osteoarthritis of knee (principal); F41.8 Other specified anxiety disorders; I44.4 Left anterior fascicular block; F17.220 Nicotine dependence, chewing tobacco, uncomplicated; K21.9 Gastro-esophageal reflux disease without esophagitis; Z79.899 Other long term (current) drug therapy
CPT/HCPCS: 27446; 76942; 97110; 97116; 97161; 73560; C1776; C9290; G0378; J0665; J0690; J1100; J1171; J2001; J2250; J2270; J2405; J2704; J3010; J3475

== ENCOUNTER 2023-08-15 11:50 | Outpatient (CLI) | payer OTHER, SELFPAY ==
--- NOTE | 2023-08-15 08:30 | DI.RAD_ITS ---
Exam(s) XR KNEE RT 2V AP,LAT EXAM: XR KNEE RT 2V AP,LAT CLINICAL HISTORY: F/U BILATERAL UKA. TECHNIQUE: 2D digital imaging was performed. COMPARISON: CR XR KNEE LT 2V AP,LAT from 08/02/2023 CR XR KNEE RT 2V AP,LAT from 08/02/2023 FINDINGS: 3 views Stable position alignment of the components of the recently placed medial hemiarthroplasty. No fract ure or loosening evident. There is maintain normal height of the lateral compartment. Bone density normal. No osseous lesions. IMPRESSION: Stable satisfactory appearance DATA REPOSITORY: RADIATION DOSE DELIVERED:
--- NOTE | 2023-08-15 08:30 | DI.RAD_ITS ---
Exam(s) XR KNEE LT 2V AP,LAT EXAM: XR KNEE LT 2V AP,LAT CLINICAL HISTORY: F/U BILATERAL UKA. TECHNIQUE: 2D digital imaging was performed. COMPARISON: CR XR KNEE LT 2V AP,LAT from 08/02/2023 CR XR KNEE RT 2V AP,LAT from 08/15/2023 FINDINGS: Two views. Stable position alignment of the components of the recently placed medial hemiarthroplasty. No fract ure or loosening evident. There is no diminution of height of the lateral compartment. There is, ho wever, a joint effusion noted and anterior soft tissue swelling similar to the opposite side. IMPRESSION: Stable satisfactory appearance of the recently placed medial tanesha arthroplasty components. Joint effusion noted. Also anterior soft tissue swelling. DATA REPOSITORY: RADIATION DOSE DELIVERED:
== END 2023-08-15 11:51 | disposition home or self-care (01) ==
LOC: DIORS 11:50
PROVIDERS: PCP Nurse Practitioner Family; Visit Provider Student in an Organized Health Care Education/Training Program
DX: M17.0 Bilateral primary osteoarthritis of knee (principal); Z96.653 Presence of artificial knee joint, bilateral
CPT/HCPCS: 73560

== ENCOUNTER 2023-10-03 09:58 | Outpatient (CLI) | payer OTHER, SELFPAY ==
--- NOTE | 2023-10-03 08:15 | DI.RAD_ITS ---
Exam(s) XR KNEE LT 2V AP,LAT EXAM: XR KNEE LT 2V AP,LAT CLINICAL HISTORY: F/U BILAT UKA. TECHNIQUE: 2D digital imaging was performed. Two images were obtained. AP and lateral views were ob tained. COMPARISON: CR XR KNEE LT 2V AP,LAT from 08/15/2023 FINDINGS: BONES: There are stable post operative changes of a partial left knee replacement present. No fractu re or dislocation. JOINTS: The orthopedic hardware is in good position. No evidence of hardware loosening. There is a small joint effusion. Degenerative changes are seen in the posterior patella. SOFT TISSUE: Normal. IMPRESSION: Stable partial left knee replacement. DATA REPOSITORY: RADIATION DOSE DELIVERED:
--- NOTE | 2023-10-03 08:15 | DI.RAD_ITS ---
Exam(s) XR KNEE RT 2V AP,LAT EXAM: XR KNEE RT 2V AP,LAT CLINICAL HISTORY: F/U BILAT UKA. TECHNIQUE: 2D digital imaging was performed. Two images were obtained. AP and lateral views were ob tained. COMPARISON: CR XR KNEE RT 2V AP,LAT from 08/15/2023 FINDINGS: BONES: There are stable post operative changes of a partial right knee replacement present. No fract ure or dislocation. JOINTS: The orthopedic hardware is in good position. No evidence of hardware loosening. There is a small joint effusion. Osteophytes are seen at the posterior patella. SOFT TISSUE: Normal. IMPRESSION: Stable right partial knee replacement. Degenerative changes in the knee. Small joint effusion.. DATA REPOSITORY: RADIATION DOSE DELIVERED:
== END 2023-10-03 09:59 | disposition home or self-care (01) ==
LOC: DIORS 09:59
PROVIDERS: PCP Nurse Practitioner Family; Visit Provider Student in an Organized Health Care Education/Training Program
DX: Z96.653 Presence of artificial knee joint, bilateral (principal); Z47.1 Aftercare following joint replacement surgery
CPT/HCPCS: 73560

== ENCOUNTER 2023-10-31 09:27 | Outpatient (CLI) | payer OTHER, SELFPAY ==
--- NOTE | 2023-10-31 08:15 | DI.RAD_ITS ---
Exam(s) XR KNEE RT 2V AP,LAT EXAM: XR KNEE RT 2V AP,LAT CLINICAL HISTORY: F/U RIGHT UKA. TECHNIQUE: 2D digital imaging was performed. Three views. COMPARISON: CR XR KNEE RT 2V AP,LAT from 10/03/2023 CR XR KNEE LT 2V AP,LAT from 10/31/2023 FINDINGS: BONES: No acute fracture is present. No bony destructive lesion is seen. JOINTS: The medial femoral tibial joint prosthesis normally aligned. A small joint effusion is seen. SOFT TISSUE: Mild anterior swelling. IMPRESSION: Stable appearance of the medial femoral tibial joint space prosthesis DATA REPOSITORY: RADIATION DOSE DELIVERED:
--- NOTE | 2023-10-31 08:15 | DI.RAD_ITS ---
Exam(s) XR KNEE LT 2V AP,LAT EXAM: XR KNEE LT 2V AP,LAT CLINICAL HISTORY: F/U LEFT UKA. TECHNIQUE: 2D digital imaging was performed. Three views. COMPARISON: CR XR KNEE LT 2V AP,LAT from 10/03/2023 CR XR KNEE RT 2V AP,LAT from 10/03/2023 FINDINGS: BONES: No acute fracture is present. No bony destructive lesion is seen. JOINTS: Stable alignment of the medial femoral tibial joint space prosthesis. Lateral femoral tibial joint is maintained. No joint effusion is seen. SOFT TISSUE: Mild anterior soft tissue swelling. IMPRESSION: Stable appearance of knee prosthesis. DATA REPOSITORY: RADIATION DOSE DELIVERED:
== END 2023-10-31 09:28 | disposition home or self-care (01) ==
LOC: DIORS 09:27
PROVIDERS: PCP Nurse Practitioner Family; Referring Provider Family Medicine; Visit Provider Student in an Organized Health Care Education/Training Program
DX: Z96.652 Presence of left artificial knee joint (principal)
CPT/HCPCS: 73560

== ENCOUNTER 2023-11-27 18:42 | Outpatient (REF) | payer OTHER, SELFPAY ==
[2023-11-27 21:57] LABS: Anion Gap 10.8 mmol/L (3-11); BUN 19 mg/dL (7-18); CO2 27.2 mmol/L (21.0-32.0); CREATININE 1.6 mg/dL (0.70-1.30); Calcium 9.5 mg/dL (8.5-10.1); Chloride 107 mmol/L (98-107); Estimated GFR 50.26 (mL/min/1.73m2); Glucose 85 mg/dL (74-106); Potassium 4.6 mmol/L (3.5-5.1); Sodium 145 mmol/L (136-145)
== END 2023-11-27 18:43 | disposition home or self-care (01) ==
LOC: LBN 18:42
PROVIDERS: PCP Nurse Practitioner Family; Visit Provider Nurse Practitioner Family
DX: I10 Essential (primary) hypertension (principal)
CPT/HCPCS: 80048

== ENCOUNTER 2023-12-04 14:18 | Outpatient (CLI) | payer OTHER, SELFPAY ==
--- NOTE | 2023-12-04 13:15 | DI.RAD_ITS ---
Exam(s) XR KNEE LT 2V AP,LAT EXAM: XR KNEE LT 2V AP,LAT CLINICAL HISTORY: F/U LEFT UKA. TECHNIQUE: 2D digital imaging was performed. Three views. COMPARISON: CR XR KNEE RT 2V AP,LAT from 10/31/2023 CR XR KNEE LT 2V AP,LAT from 10/31/2023 FINDINGS: BONES: No acute fracture is present. No bony destructive lesion is seen. JOINTS: The knee is normally aligned. No joint effusion is seen. No change in medial femoral tibial joint space prosthesis. SOFT TISSUE: Normal. IMPRESSION: Stable appearance of medial femoral tibial joint space prosthesis. DATA REPOSITORY: RADIATION DOSE DELIVERED:
--- NOTE | 2023-12-04 13:49 | DI.RAD_ITS ---
Exam(s) XR KNEE RT 2V AP,LAT EXAM: XR KNEE RT 2V AP,LAT INDICATION: F/U RIGHT UKA. COMPARISON: CR XR KNEE RT 2V AP,LAT from 10/31/2023 TECHNIQUE: 2D digital imaging was performed. Two views. FINDINGS: Stable appearance of medial femoral tibial joint space prosthesis. No abnormal bony lucencies. Min imal joint effusion. Impression: Stable appearance of joint prosthesis. DATA REPOSITORY: RADIATION DOSE DELIVERED:
== END 2023-12-04 14:19 | disposition home or self-care (01) ==
LOC: DIORS 14:18
PROVIDERS: PCP Nurse Practitioner Family; Visit Provider Student in an Organized Health Care Education/Training Program
DX: Z96.652 Presence of left artificial knee joint (principal); Z96.651 Presence of right artificial knee joint
CPT/HCPCS: 73560

== ENCOUNTER 2024-02-05 11:18 | Outpatient (CLI) | payer OTHER, SELFPAY ==
--- NOTE | 2024-02-05 08:00 | DI.RAD_ITS ---
Exam(s) XR KNEE LT 2V AP,LAT EXAM: XR KNEE LT 2V AP,LAT CLINICAL HISTORY: F/U LEFT UKA. TECHNIQUE: 2D digital imaging was performed. Three images were obtained. AP, lateral and oblique vi ews were obtained. COMPARISON: CR XR KNEE LT 2V AP,LAT from 12/04/2023 FINDINGS: BONES: There are stable post operative changes of a left knee hemiarthroplasty present. No fracture or dislocation. JOINTS: The orthopedic hardware is in good position. No evidence of hardware loosening. Mild degene rative changes are seen in the lateral femoral tibial and patellofemoral joint. There is a small martha nt effusion. SOFT TISSUE: Normal. IMPRESSION: Stable left knee hemiarthroplasty. DATA REPOSITORY: RADIATION DOSE DELIVERED:
--- NOTE | 2024-02-05 08:00 | DI.RAD_ITS ---
Exam(s) XR KNEE RT 2V AP,LAT EXAM: XR KNEE RT 2V AP,LAT CLINICAL HISTORY: F/U RIGHT UKA. TECHNIQUE: 2D digital imaging was performed. Two images were obtained. AP and lateral views were ob tained. COMPARISON: CR XR KNEE RT 2V AP,LAT from 12/04/2023 FINDINGS: BONES: There are stable post operative changes of a right knee hemiarthroplasty present. No fracture or dislocation. JOINTS: The orthopedic hardware is in good position. No evidence of hardware loosening. Mild degene rative changes are seen at the patellofemoral joint. SOFT TISSUE: Normal. IMPRESSION: Stable right knee hemiarthroplasty. DATA REPOSITORY: RADIATION DOSE DELIVERED:
== END 2024-02-05 11:19 | disposition home or self-care (01) ==
LOC: DIORS 11:19
PROVIDERS: PCP Nurse Practitioner Family; Visit Provider Student in an Organized Health Care Education/Training Program
DX: Z96.653 Presence of artificial knee joint, bilateral; Z47.1 Aftercare following joint replacement surgery
CPT/HCPCS: 73560

== ENCOUNTER 2024-07-29 09:04 | Outpatient (CLI) | payer OTHER, SELFPAY ==
--- NOTE | 2024-07-29 08:00 | DI.RAD_ITS ---
Exam(s) XR KNEE RT 2V AP,LAT EXAM: XR KNEE RT 2V AP,LAT CLINICAL HISTORY: F/U RIGHT UKA. TECHNIQUE: 2D digital imaging was performed. COMPARISON: CR XR KNEE RT 2V AP,LAT from 02/05/2024 FINDINGS: Two views Stable position alignment of the components of medial hemiarthroplasty. No fracture or loosening denisa dent. The lateral compartment height is maintained/unchanged. Small amount of increased joint fluid noted. IMPRESSION: Stable satisfactory appearance of the medial hemiarthroplasty and stable height of the lateral compar tment DATA REPOSITORY: RADIATION DOSE DELIVERED:
--- NOTE | 2024-07-29 08:00 | DI.RAD_ITS ---
Exam(s) XR KNEE LT 2V AP,LAT EXAM: XR KNEE LT 2V AP,LAT CLINICAL HISTORY: F/U LEFT UKA. TECHNIQUE: 2D digital imaging was performed. COMPARISON: CR XR KNEE LT 2V AP,LAT from 02/05/2024 FINDINGS: Again noted is a medial hemiarthroplasty which appears stable when compared to 02/05/2024. No eviden ce of fracture nor loosening. The height of the lateral compartment is unchanged/maintained. IMPRESSION: Stable satisfactory appearance without significant radiographic change compared to images of 02/05/20 24. DATA REPOSITORY: RADIATION DOSE DELIVERED:
== END 2024-07-29 09:05 | disposition home or self-care (01) ==
LOC: DIORS 09:04
PROVIDERS: PCP Nurse Practitioner Family; Visit Provider Student in an Organized Health Care Education/Training Program
DX: Z47.1 Aftercare following joint replacement surgery (principal); Z96.653 Presence of artificial knee joint, bilateral
CPT/HCPCS: 73560